=== PATIENT | male | born 1935 | race Asian ===

== ENCOUNTER 2018-10-13 19:50 | Inpatient (IN) | payer MEDICARE ==
[~2018-10-13] VITALS: Ht 167.6 cm; Wt 74.9 kg
[~2018-10-13 19:50] MED LIST: ALLO100T PO; ASPI-667 PO; CLOP75TA52 PO; FERR-39 PO; HYDR25TA PO; LOVA20TA2 PO; METF500T17 PO; METO25TA4 PO; POTA20TA14 PO; PRED2.5T PO; RIVA10TA PO; SENN1TAB68 PO; SPIR25TA PO; TORS20TA2 PO; UMEC1DIS IH; VIT1CAPS40 PO
[2018-10-13 20:56] VITALS: BP 143/79
--- NOTE | 2018-10-13 21:15 | ER.PDOC ---
General Chief Complaint: Requesting Medical Care Stated Complaint: BLOOD IN URINE Time seen by MD: 21:05 Source: patient History of Present Illness Initial Comments patient states that he had dysuria for two days and blood in urine starting today, no fever/flank pain or vomiting no complaints of abdominal pain. Timing/Duration: this afternoon Severity/Quality: moderate Location: suprapubic Associated Symptoms: Dysuria, Frequency, Hematuria Allergies: Coded Allergies: saffron (Verified Allergy, Mild, 06/04/18) shrimp (Verified Allergy, Mild, 06/04/18) Home Meds Reported Medications Rivaroxaban (XARELTO) 10 Mg Tablet, 2.5 MG PO BID, #10 TAB 10/13/18 Prednisone (PREDNISONE) 5 Mg Tab.ds.pk, 5 MG PO DAILY24 10/13/18 Cholestyramine (With Sugar) (CHOLESTYRAMINE POWDER) 378 Gm Powder, 378 GM PO PRN 10/13/18 Sucralfate (CARAFATE) 1 Gm/10 Ml Oral.susp, 10 MILLILITER PO BID, #120 MILLILITER 1 Refill 10/13/18 Hydroxyzine Pamoate (HYDROXYZINE PAMOATE) 25 Mg Capsule, 1 CAP PO QID, #60 CAP 2 Refills 10/13/18 Levothyroxine Sodium (LEVOTHYROXINE SODIUM) 75 Mcg Tablet, 1 TAB PO DAILY, #30 TAB 5 Refills 10/13/18 Lovastatin (LOVASTATIN) 20 Mg Tablet, 20 MG PO DAILY24, TABLET 10/13/18 Linagliptin (TRADJENTA) 5 Mg Tablet, 2.5 MG PO DAILY24, TABLET 10/13/18 Metoprolol Tartrate 25MG (LOPRESSER 25MG) 25 Mg Tablet, 25 MG PO q12 for HYPERTENSION, #60 TAB 10/13/18 Rivaroxaban (XARELTO) 10 Mg Tablet, 1 TAB PO DAILY, TAB 10/13/18 Clopidogrel Bisulfate (PLAVIX) 75 Mg Tablet, 75 MG PO DAILY24, TABLET 10/13/18 Spironolactone (SPIRONOLACTONE) 25 Mg Tablet, 25 MG PO DAILY24, TABLET 10/13/18 Pantoprazole Sodium (PANTOPRAZOLE SODIUM) 40 Mg Tablet.dr, 40 MG PO DAILY24 10/13/18 Allopurinol (ALLOPURINOL) 100 Mg Tablet, 100 MG PO BID, TABLET 10/13/18 Torsemide (TORSEMIDE) 20 Mg Tablet, 20 MG PO TID, TABLET 10/13/18 Potassium Chloride (POTASSIUM CHLORIDE) 20 Meq Tab.er.prt, 1 TAB PO BID, #180 TAB 3 Refills 10/13/18 Potassium Chloride (POTASSIUM CHLORIDE) 10 Meq Tab.er.prt, 10 MEQ PO BID 10/13/18 Umeclidinium Brm/Vilanterol Tr (Anoro Ellipta 62.5-25 Mcg INH) 1 Each Disk.w.dev , 1 EACH IH DAILY24 10/13/18 Albuterol Sulfate (PROAIR HFA) 8.5 Gm Hfa.aer.ad, 8.5 GM IH QID 10/13/18 Thiamine Hcl (VITAMIN B-1) 100 Mg Tablet, 100 MG PO DAILY24, TABLET 10/13/18 Cholecalciferol (Vitamin D3) (VITAMIN D3) 400 Unit Capsule, 400 UNIT PO DAILY24 , CAPSULE 10/13/18 Folic Acid (FOLIC ACID) 1 Mg Tablet, 1 TAB PO DAILY, #90 TAB 1 Refill 10/13/18 Ferrous Sulfate (FERROUS SULFATE) 325 Mg Tablet, 325 MG PO DAILY24, TABLET 10/13/18 Vit A/Vit C/Vit E/Zinc/Copper (PRESERVISION AREDS SOFTGEL) 1 Each Capsule, 1 EACH PO DAILY24, CAPSULE 10/13/18 Discontinued Reported Medications Sennosides/Docusate Sodium (STOOL SOFTENER TABLET) 1 Each Tablet, 1 EACH PO DAILY24, TABLET 06/04/18 Ferrous Sulfate (IRON) 325 Mg Tablet, 325 MG PO DAILY24, TABLET 06/04/18 Lovastatin (LOVASTATIN) 20 Mg Tablet, 1 TAB PO DAILY, #30 TAB 5 Refills 06/04/18 Clopidogrel Bisulfate (PLAVIX) 75 Mg Tablet, 1 TAB PO DAILY, #90 TAB 1 Refill 06/04/18 Prednisone (PREDNISONE) 2.5 Mg Tablet, 2 TAB PO DAILY, #30 TAB 3 Refills 06/04/18 Rivaroxaban (XARELTO) 10 Mg Tablet, 1 TAB PO DAILY, #10 TAB 06/04/18 Metformin Hcl (METFORMIN HCL) 500 Mg Tablet, 1 TAB PO BID, #60 TAB 3 Refills 06/04/18 Potassium Chloride (POTASSIUM CHLORIDE) 20 Meq Tab.er.prt, 1 TAB PO BID, #180 TAB 3 Refills 06/04/18 Allopurinol (ALLOPURINOL) 100 Mg Tablet, 1 TAB PO BID, #30 TAB 5 Refills 06/04/18 Torsemide (TORSEMIDE) 20 Mg Tablet, 3 TAB PO DAILY, #90 TAB 1 Refill 06/04/18 Vit C/E/Zn/Coppr/Lutein/Zeaxan (Preservision Areds 2 Softgel) 1 Each Capsule, 1 EACH PO DAILY24, CAPSULE 06/04/18 Umeclidinium Brm/Vilanterol Tr (Anoro Ellipta 62.5-25 Mcg INH) 1 Each Disk.w.dev , 1 EACH IH DAILY24 06/04/18 Metoprolol Tartrate 25MG (LOPRESSER 25MG) 25 Mg Tablet, 0.5 TAB PO BID, #180 TAB 1 Refill 06/04/18 Aspirin (ASPIRIN) 81 Mg Tab.chew, 1 TAB PO DAILY, #30 TAB 3 Refills 06/04/18 Spironolactone 25MG (ALDACTONE 25MG) 25 Mg Tablet, 1 TAB PO BID, #90 TAB 1 Refill 06/04/18 Hydroxyzine Hcl (HYDROXYZINE HCL) 25 Mg Tablet, 1 TAB PO QID, #30 TAB 06/04/18 Past Medical History Medical History: cardiac problems, diabetes, other Surgical History: no surgical history Social History Drug Use: none Review of Systems Constitutional: denies fever EENTM: denies double vision Respiratory: denies cough Cardiovascular: denies chest pain Gastrointestinal: denies abdominal pain Genitourinary: burning, frequency; denies flank pain; hematuria Musculoskeletal: denies back pain Skin: denies change in color Psychiatric/Neurological: denies anxiety, denies headache Endocrine: denies flushing Hematologic/Lymphatic: denies anemia Physical Exam General Appearance: No Apparent Distress Neck: nml inspection Cardiovascular/Respiratory: Regular Rate, Rhythm Abdomen: Non Tender Back: nml inspection Extremities: Normal Range of Motion Neurologic/Psychiatric: occ med physician II-XII NML as Tested, No Motor/Sensory Deficits, Alert, Normal Mood/Affect, Oriented x 3 Skin: Warm/Dry Lymphatic: No Adenopathy Results/Orders Results/Orders Laboratory Tests Test 10/13/18 21:30 10/13/18 21:52 10/13/18 22:21 10/13/18 23:15 White Blood Count 19.0 10^3/uL (4.5-11.0) Red Blood Count 5.28 10^6/uL (4.50-5.90) Hemoglobin 14.6 g/dL (13.9-16.3) Hematocrit 44.6 % (37.0-53.0) Mean Corpuscular Volume 84.5 fL (78-100) Mean Corpuscular Hemoglobin 27.7 pg (26-34) Mean Corpuscular Hemoglobin Concent 32.7 g/dL (33-37) Red Cell Distribution Width 16.6 % (11.5-14.5) Platelet Count 276 10^3/uL (150-400) Mean Platelet Volume 9.1 fL (7.8-11.0) Neutrophils (%) (Auto) 87.7 % (41.0-85.0) Lymphocytes (%) (Auto) 4.6 % (24.0-44.0) Monocytes (%) (Auto) 6.5 % (5.0-12.0) Neutrophils # (Auto) 16.7 10^3/uL (1.8-7.7) Lymphocytes # (Auto) 0.9 10^3/uL (1.0-4.8) Monocytes # (Auto) 1.2 10^3/uL (0.3-0.8) Absolute Immature Granulocyte (auto 0.15 10^3 u/L (0-2) Eosinophils % 0.3 % (0.0-5.0) Basophils % 0.1 % (0.0-0.2) Basophils # 0.0 10^3/uL (0.0-0.1) Eosinophil Count 0.1 10^3/uL (0.0-0.2) Prothrombin Time 17.4 SEC (9.8-11.9) Prothrombin Time INR (Non-Therap) 1.9 Activated Partial Thromboplast Time 42.0 SEC (24.67-30.72) Sodium Level 131 mmol/L (132-145) Potassium Level 4.3 mmol/L (3.6-5.2) Chloride Level 90.0 mmol/L (96-109) Carbon Dioxide Level 32.9 mmol/L (20.0-32) Anion Gap 12.4 Blood Urea Nitrogen 51 mg/dL (7-18) Creatinine 2.02 mg/dL (0.59-1.40) Estimated GFR () 38.5 (>/=60) BUN/Creatinine Ratio 25.0 Glucose Level 295 mg/dL (70-110) Calcium Level 9.6 mg/dL (8.4-10.5) Total Bilirubin 1.3 mg/dL (0.2-1.0) Aspartate Amino Transf (AST/SGOT) 19 U/L (0-35) Alanine Aminotransferase (ALT/SGPT) 31 U/L (12-78) Alkaline Phosphatase 209 U/L (50-136) Total Protein 8.5 g/dL (6.4-8.2) Albumin 4.0 g/dL (3.4-5.0) Globulin 4.5 Lipase 221 U/L (114-286) Percent Immature Gran (Cell Imm) 0.80 % (0.00-0.50) Differential Total Cells Counted 100 #CELLS Segmented Neutrophils 86 % (31-76) Lymphocytes 5 % (25-36) Monocytes 8 % (3-9) Basophils 1 % (0-2) Platelet Estimate ADEQUATE Platelet Morphology NORMAL Blood Morphology Comment NORMAL MORPHOLOGY Urine Collection Type UNKNOWN Urine Color RED (YELLOW) Urine Appearance CLOUDY (CLEAR) Urine Bilirubin NEGATIVE MG/DL (NEGATIVE) Urine Ketones NEGATIVE (NEGATIVE) Urine Specific [place] 1.010 (1.005-1.035) Urine pH 7 (5.0-6.0) Urine Protein 100 mg/dL (NEGATIVE) Urine Urobilinogen NORMAL (NEGATIVE) Urine Nitrate NEGATIVE (NEGATAIVE) Urine Leukocyte Esterase 500/uL 2+ (NEGATIVE) Urine Blood 250 4+ (NEGATIVE) Urine RBC TNTC RBC/HPF (NONE SEEN) Urine WBC TNTC WBC/HPF (0-2) Urine Squamous Epithelial Cells RARE #/HPF (FEW) Urine Bacteria MANY (NONE SEEN) Urine Glucose NORMAL (NEGATIVE) Blood Gas Sample Site LEFT BRACHIAL ARTRY Blood Gas pH 7.608 (7.350-7.450) Blood Gas PCO2 28.5 mmHg (35.0-45.0) Blood Gas PO2 62.1 mmHg (75.0-100.0) Blood Gas HCO3 27.9 mmol/L (22.0-26.0) Blood Gas Base Excess 7.3 mmol/L (-2.0-2.0) Roland Test N/A Arterial Blood Oxygen Saturation 93.6 % (95-) Deoxyhemoglobin 6.2 % (0.2-0.6) Carboxyhemoglobin 2.8 % (0.5-1.5) Methemoglobin 0.2 % (0.2-0.6) Total Hemoglobin 15.5 % (13.5-17.5) Total Oxygen Concentration 19.8 % (13.5-17.5) Lactic Acid (Blood Gas) 1.4 MMOL/L (0.5-1.0) Oxygen Delivery Method (LAB) RA FiO2 21 % (20-101) Bicarbonate 28.7 mmol/L (23-27) Progress Progress discussed with dr proctor for admission Departure Time of Disposition: 23:40 Disposition: 09 ADMITTED INPATIENT Impression: Primary Impression: Urinary tract bacterial infections Additional Impressions: Hematuria Dehydration Hyperglycemia Condition: Improved Referrals: CEDRIC YU MD (PCP) PRIMARY CARE PROVIDER Duration or Time Spent with Pa: 25 Problem Qualifiers JOSE NORTON MD Oct 13, 2018 21:15
[2018-10-13 21:46] LABS: BASOPHIL % 0.1 % (0.0-0.2); EOSINOPHIL # 0.1 10^3/uL (0.0-0.2); EOSINOPHIL % 0.3 % (0.0-5.0); HEMOGLOBIN 14.6 g/dL (13.9-16.3); LYMPHOCYTES # 0.9 10^3/uL (1.0-4.8); LYMPHOCYTES % 4.6 % (24.0-44.0); MEAN CELL HGB 27.7 pg (26-34); MEAN CELL HGB CONCENTRATION 32.7 g/dL (33-37); MEAN CORP VOLUME 84.5 fL (78-100); MEAN PLATELET VOLUME 9.1 fL (7.8-11.0); MONOCYTES # 1.2 10^3/uL (0.3-0.8); MONOCYTES % 6.5 % (5.0-12.0); NEUTROPHIL # 16.7 10^3/uL (1.8-7.7); NEUTROPHILS % 87.7 % (41.0-85.0); RED CELL DISTRIBUTION WIDTH 16.6 % (11.5-14.5)
[2018-10-13] MEDS ORDERED: FOLI1TAB21 PO (21:52)
[2018-10-13] MEDS ORDERED: SPIR25TA5 PO (21:52)
[2018-10-13] MEDS ORDERED: LEVO75TA6 PO (21:52)
[2018-10-13] MEDS ORDERED: CHOL378P PO (21:52)
[2018-10-13] MEDS ORDERED: CLOP75TA52 PO (21:52)
[2018-10-13] MEDS ORDERED: ALBU8.5H7 IH (21:52)
[2018-10-13] MEDS ORDERED: HYDR25CA93 PO (21:52)
[2018-10-13] MEDS ORDERED: LINA5TAB PO (21:52)
[2018-10-13] MEDS ORDERED: PANT40TA5 PO (21:52)
[2018-10-13] MEDS ORDERED: SUCR1ORA5 PO (21:52)
[2018-10-13] MEDS ORDERED: POTA20TA14 PO (21:52)
[2018-10-13] MEDS ORDERED: POTA10TA31 PO (21:52)
[2018-10-13] MEDS ORDERED: [UNRECOGNIZED DRUG - CODE] PO (21:52)
[2018-10-13] MEDS ORDERED: UMEC1DIS IH (21:52)
[2018-10-13] MEDS ORDERED: LOVA20TA2 PO (21:52)
[2018-10-13] MEDS ORDERED: TORS20TA2 PO (21:52)
[2018-10-13] MEDS ORDERED: METO25TA4 PO (21:52)
[2018-10-13] MEDS ORDERED: RIVA10TA PO ×2 (21:52→21:53)
[2018-10-13] MEDS ORDERED: VIT1CAPS12 PO (21:52)
[2018-10-13] MEDS ORDERED: PRED5TAB17 PO (21:52)
[2018-10-13] MEDS ORDERED: FERR325T15 PO (21:52)
[2018-10-13] MEDS ORDERED: CHOL400C5 PO (21:52)
[2018-10-13] MEDS ORDERED: ALLO100T PO (21:52)
[2018-10-13 22:02] LABS: CALCIUM 9.6 mg/dL (8.4-10.5); CARBON DIOXIDE 32.9 mmol/L (20.0-32)
[2018-10-13 22:26] LABS: BILIRUBIN,URINE NEGATIVE (NEGATIVE); UROBILINOGEN,URINE NORMAL (NEGATIVE)
[2018-10-13] MEDS ORDERED: HUMULIN R SQ ONE (22:30)
[2018-10-13] MEDS ORDERED: NS 1000ML 1,000 ML IV ONE (22:30)
[2018-10-13 22:39] LABS: APPEARANCE,URINE CLOUDY (CLEAR); UA COLOR RED (YELLOW)
--- NOTE | 2018-10-13 22:52 | DIREP ---
PROCEDURE:CT ABDOMEN/PELVIS W/O CONTRAST COMPARISON:None. INDICATIONS:blood in urine, DIABETIC, ELEVATED CREATININE TECHNIQUE:Axial images were created through the abdomen and pelvis without intravenous contrast material. No oral contrast was administered. Sagittal and coronal reconstructions were performed from source images. FINDINGS: LUNG BASES:Mild cardiomegaly. Small hiatal hernia. LIVER:Nodular liver contour BILIARY:Gallstones without surrounding inflammation PANCREAS:Normal. No lesion, fluid collection, ductal dilatation, or atrophy. SPLEEN:Normal. No enlargement or focal lesion. ADRENALS:Normal. No mass or enlargement. URINARY TRACT:Normal. No focal lesions or hydronephrosis. AORTA/VASCULAR: Aortoiliac atherosclerotic vascular calcium. RETROPERITONEUM:Normal. No mass or adenopathy. BOWEL/MESENTERY:Prominent amount of stool ABDOMINAL WALL:Normal. No mass or hernia. PELVIC ORGANS:Normal. No visible mass. Pelvic organs appropriate for patient age. BONES:Normal for age. No bony lesion or acute fracture. OTHER:Negative. CONCLUSION: 1. No renal stone or hydronephrosis. No solid renal lesion is identified on this noncontrast study. 2. Prominent amount of stool suggests constipation 3. Nodular liver contour suggests cirrhosis 4. Small hiatal hernia 5. Cholelithiasis without imaging evidence for cholecystitis. Dictated by: Hector Rodriguez Jr. on 10/13/2018 at 10:45 PM
[2018-10-13 23:19] LABS: BASOPHIL 1 % (0-2); LYMPHOCYTE 5 % (25-36); MONOCYTE 8 % (3-9); SEGMENTED NEUTROPHILS 86 % (31-76)
[2018-10-13] MEDS ORDERED: ROCEPHIN 1,000 MG in NS 100ML 100 ML IV SCH (23:30)
[2018-10-13 23:38] LABS: ABG PCO2 28.5 mmHg (35.0-45.0); ABG PH 7.608 (7.350-7.450); BE(B) 7.3 mmol/L (-2.0-2.0); HCO3act 27.9 mmol/L (22.0-26.0); pO2 62.1 mmHg (75.0-100.0)
--- NOTE | 2018-10-13 23:42 | NUR ---
CARMELITA NORTON ON PHONE WITH DR. MAE
[2018-10-13] MEDS ORDERED: NS 100ML 100 ML IV ONE (23:50)
[2018-10-13] MEDS ORDERED: ROCEPHIN ONE (23:51)
[2018-10-14 00:32] VITALS: BP 125/72
[2018-10-14 00:40] VITALS: BP 151/81
[2018-10-14 05:01] VITALS: BP 112/66
--- NOTE | 2018-10-14 06:35 | NUR ---
REPORT REPORT RECEIVED FROM DELFINO Hanley RN ASSUMED CARE OF PT
--- NOTE | 2018-10-14 07:17 | PCM.HP ---
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 Has dx of Cirrhosis (and is hypocoagulable), and is on Xarelto for Afib and Plavix for new stent in left leg. No ASA. Also with Acute on CKD, present on admission, secondary to ATN. + for UTI. Will also consult Dr. Ruffin. H&P # [id number] HISTORY OF PRESENT ILLNESS: ALLERGIES: CURRENT MEDICATIONS: PAST MEDICAL HISTORY: SOCIAL HISTORY: FAMILY HISTORY: REVIEW OF SYSTEMS: PHYSICAL EXAMINATION: GENERAL: VITAL SIGNS: HEENT: NECK: LUNGS: HEART: ABDOMEN: EXTREMITIES: NEUROLOGIC: LABORATORY DATA: IMPRESSION: CARE PLAN: BARTOLO MAE MD Oct 14, 2018 07:17
[2018-10-14] MEDS ORDERED: LEVAQUIN 150 ML IV ONE ×2 (07:30→10:15)
[2018-10-14 07:37] LABS: BASOPHIL % 0.1 % (0.0-0.2); EOSINOPHIL # 0.1 10^3/uL (0.0-0.2); EOSINOPHIL % 0.6 % (0.0-5.0); HEMOGLOBIN 14.1 g/dL (13.9-16.3); LYMPHOCYTES % 5.5 % (24.0-44.0); MEAN CELL HGB 27.7 pg (26-34); MEAN CELL HGB CONCENTRATION 33.1 g/dL (33-37); MEAN CORP VOLUME 83.7 fL (78-100); MEAN PLATELET VOLUME 9.4 fL (7.8-11.0); MONOCYTES # 1.4 10^3/uL (0.3-0.8); MONOCYTES % 7.6 % (5.0-12.0); NEUTROPHIL # 15.9 10^3/uL (1.8-7.7); NEUTROPHILS % 85.4 % (41.0-85.0); RED CELL DISTRIBUTION WIDTH 16.7 % (11.5-14.5); WHITE BLOOD CELL 18.6 10^3/uL (4.5-11.0)
[2018-10-14 07:45] VITALS: BP 121/62
[2018-10-14 07:56] LABS: CALCIUM 8.9 mg/dL (8.4-10.5); CARBON DIOXIDE 28.1 mmol/L (20.0-32)
[2018-10-14] MEDS: PROTONIX PO SCH ×2 (10:18→10:30)
[2018-10-14] MEDS ORDERED: DEXTROSE 50%-WATER SYRINGE IV PRN (10:30)
[2018-10-14] MEDS ORDERED: PLAVIX PO SCH (10:30)
--- NOTE | 2018-10-14 10:30 | NUR ---
DISCHARGE PLAN CASE MANAGEMENT VISITED WITH PATIENT CONCERNING DISCHARGE PLAN AND NEEDS. LIVES AT HOME ALONE. SOMEWHAT INDEPENDENT OF ADLS. STEP SON LIVES NEXT DOOR. HAS DME INCLUDING SHOWER CHAIR AND WALKER. HAS HOME OXYGEN THROUGH [employer]. HAS [facility] IN PLACE. DISCHARGE GOAL IS TO DISCHARGE HOME AND [facility] TO FOLLOW. DENIES FURTHER NEEDS AT THIS TIME.
--- NOTE | 2018-10-14 10:52 | HPH ---
ADMIT DATE: CHIEF COMPLAINT: Blood in the urine. HISTORY OF PRESENT ILLNESS: This is an 83-year-old male with multiple medical problems including congestive heart failure, atrial fibrillation, and cirrhosis who presented to [facility] Emergency Department on 10/13/2018 for complaints of blood in urine. He states he had been in his usual state of health until earlier on the day when he started noticing his urine did not look right. He states his urine was maroon and occasionally looked tea-colored and that overall progressing throughout the evening, his urine became more and more red. When he urinated at approximately 7:00 p.m., he noticed that his urine was completely red and this concerned him enough to come in. He did not have any fever or flank pain or any gastrointestinal side effects or symptoms. He has not had any pain with urination. He states that this has not happened before and he has been fine over the last several weeks. The only symptom he endorses with it is that he occasionally will have some pressure in the pelvis whenever he urinates and that he feels like he is using the restroom more often over the last 2 weeks. When he does urinate, he states he completely empties his bladder and does not have to urinate again for several hours, but overall it is more frequent than normal. Of note, the patient had a stent placed in his left leg approximately [address] Caro. Apparently, he has been on Plavix since that time. He is also on Xarelto for atrial fibrillation and congestive heart failure and he also has recently been diagnosed with cirrhosis of unknown etiology. The patient denies any other bleeding from any other parts of the body. He denies any significant bruising. PAST MEDICAL HISTORY: 1. Chronic systolic congestive heart failure. 2. Diabetes mellitus type 2. 3. Peripheral arterial disease. 4. Hypertension. 5. Diabetes mellitus. 6. Hyperlipidemia. 7. Cirrhosis of the liver. 8. History of peptic ulcer disease. 9. Hypothyroidism. 10. GERD. 11. Gout. 12. Chronic volume overload. 13. Lower extremity edema. 14. Chronic obstructive pulmonary disease. MEDICATIONS: See admit medication reconciliation form, but includes: 1. Xarelto 2.5 mg b.i.d. 2. Plavix 75 mg daily. 3. Multiple other medications. ALLERGIES: SAFFRON and SHRIMP. PAST SURGICAL HISTORY: Stents placed in lower extremity artery. SOCIAL HISTORY: Alcohol and tobacco -- denies. The patient lives alone in [place]. He states family lives in the house next door. FAMILY HISTORY: Multiple family members with high blood pressure. REVIEW OF SYSTEMS: GENERAL: Overall mild weakness, fatigue and malaise over the last several weeks. CARDIAC: Denies chest pain, orthopnea, PND or palpitations. RESPIRATORY: Denies shortness of breath, cough or congestion. GASTROINTESTINAL: No nausea, vomiting, diarrhea or constipation. No history of hepatitis. GENITOURINARY: Denies incontinence or nocturia, but positive for hematuria and dysuria as above. HEMATOLOGIC: Easy bleeding from the bladder and a history of peptic ulcer disease. ENDOCRINE: No recent weight loss or weight gain. No temperature intolerance. NEUROLOGIC: Denies headache, paresthesias or dizziness. MUSCULOSKELETAL: No new pain or weakness in any muscle group. PSYCHIATRIC: Denies anxiety or depression. OBJECTIVE: VITAL SIGNS: Temperature is 97.7, pulse 77, respirations 20, blood pressure 143/79, pulse oximetry 100% on room air. GENERAL: This is a well-appearing male in no acute distress. He is hard of hearing. HEENT: Atraumatic, normocephalic. Sclerae are clear and anicteric. Oral mucosa is moist. NECK: Soft, supple normal range of motion. No tenderness, bruits, goiter, mass or adenopathy. There is no JVD. LUNGS: Clear to auscultation bilaterally. HEART: Regular rate and rhythm without murmurs, S3 or S4. ABDOMEN: Soft and mildly distended. No masses felt. Nontender. Positive bowel sounds. EXTREMITIES: Cool, but appeared to be well perfused. Atrophic changes of the skin with darkening and thickening of the skin on the lower extremities. NEUROLOGIC: Cranial nerves 2-12 are grossly intact and symmetric. SKIN: Intact other than as mentioned above. LABORATORY DATA: WBC 19, hemoglobin 14.6, hematocrit 44.6, platelets 276, neutrophil percentage 87.7. PT 17.4, INR 1.9, PTT 42. Sodium 137, potassium 4.3, chloride 90, CO2 of 32.9, BUN 51, creatinine 2.02, glucose 295, calcium 9.6. Total bilirubin 1.3, AST 19, ALT 31, alkaline phosphatase 209. Lipase 221, albumin 4.0. Urinalysis -- too numerous to count red blood cells and many bacteria. CT abdomen and pelvis -- "no renal stone or hydronephrosis. No solid renal lesion. Prominent amount of stool. Nodular liver suggesting cirrhosis." IMPRESSION: 1. Gross hematuria. 2. Urinary tract infection. 3. Leukocytosis. 4. Acute renal failure. 5. Hyponatremia. 6. Diabetes mellitus type 2 with hyperglycemia. 7. Cirrhosis with hyperbilirubinemia. 8. Chronic systolic congestive heart failure. 9. Peripheral arterial disease. 10. Hypocoagulable state. 11. Chronic obstructive pulmonary disease. PLAN: The patient is admitted to [facility] for further evaluation and management. His urine seems to have cleared somewhat this morning. For now, we will continue aggressive IV fluid hydration to try and improve his renal status and keep his urine clear. We will have to be cautious to avoid fluid overload as he is prone to this and he does have the diagnosis of chronic heart failure. Given his cirrhosis, he already has a hypocoagulable condition and is now on Xarelto, albeit a low dose, and Plavix. The Plavix may be more important for him since he has a fresh stent in his leg. We may need to hold the Xarelto while he is in the hospital and while he is having active bleeding. I have discussed all of this with his daughter. Consult to Dr. Ruffin for evaluation of gross hematuria. We will keep on IV ceftriaxone and Levaquin for urinary tract infection. Follow renal function closely with IV fluid management. Acute renal failure was present on admission and is likely acute on chronic kidney disease with part of this being related to acute tubular necrosis. Follow sodium closely with hydration. Keep on sliding scale insulin for hyperglycemia. Needs DVT and stress ulcer prophylaxis. Avoid aspirin or NSAIDs. Vinay Parry MD DR: PRINCESS/eula JOB# [id number]
[2018-10-14 11:40] VITALS: BP 113/65
[2018-10-14] MEDS: PREDNISONE PO SCH (13:22)
[2018-10-14] MEDS: FERROUS SULFATE PO SCH (13:22)
[2018-10-14] MEDS: ALDACTONE PO SCH (13:23)
[2018-10-14] MEDS: THIAMINE HCL PO SCH (13:23)
[2018-10-14] MEDS: TRADJENTA PO SCH (13:23)
[2018-10-14] MEDS: ATARAX PO SCH ×3 (13:23→21:37)
[2018-10-14] MEDS ORDERED: NS 1000ML 1,000 ML ONE (13:30)
[2018-10-14] MEDS: HUMULIN R SQ SCH ×3 (13:31→21:21)
--- NOTE | 2018-10-14 13:31 | NUR ---
FLUIDS ORDER RECEIVED FROM DR MAE FOR PATIENT TO RECEIVE NS AT 60MLS/HR.
[2018-10-14] MEDS ORDERED: NS 1000ML 1,000 ML IV SCH (14:00)
[2018-10-14] MEDS: DEMADEX PO SCH ×2 (17:15→21:37)
[2018-10-14 17:39] VITALS: BP 119/67
[2018-10-14] MEDS ORDERED: ROCEPHIN 1,000 MG in NS 100ML 100 ML IV SCH (20:00)
[2018-10-14] MEDS ORDERED: LIPITOR PO SCH (21:00)
[2018-10-14] MEDS: LOPRESSER PO SCH (21:37)
[2018-10-14] MEDS: KLOR-CON 10 PO SCH (21:37)
[2018-10-14] MEDS: CARAFATE PO SCH (21:37)
[2018-10-14] MEDS: ZYLOPRIM PO SCH (21:37)
[2018-10-15 00:39] VITALS: BP 112/58
[2018-10-15 04:58] VITALS: BP 117/65
[2018-10-15 05:12] LABS: HEMOGLOBIN 14.2 g/dL (13.9-16.3); MEAN CELL HGB 27.9 pg (26-34); MEAN CELL HGB CONCENTRATION 33.1 g/dL (33-37); MEAN CORP VOLUME 84.3 fL (78-100); MEAN PLATELET VOLUME 9.2 fL (7.8-11.0); RED CELL DISTRIBUTION WIDTH 16.8 % (11.5-14.5); WHITE BLOOD CELL 15.7 10^3/uL (4.5-11.0)
[2018-10-15 05:40] LABS: CALCIUM 8.9 mg/dL (8.4-10.5); CARBON DIOXIDE 29.4 mmol/L (20.0-32)
[2018-10-15] MEDS ORDERED: SYNTHROID PO SCH (06:30)
--- NOTE | 2018-10-15 07:14 | PRM.PN ---
Subjective Subjective Date: Oct 15, 2018 Time: 07:14 Subjective No overnight events. Continues to feel a little better. Urine remains clear now. 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 No other focus of bleeding noted. Energy level improved. Wants to go home. VTE VTE Risk Total Score: 2 VTE Risk Score VTE Risk: Score 0-1 = Low Risk (Aggressive mobilization; early ambulation; no VTE prophylaxis required) Score 2: Moderate Risk (Intermittent/Pneumatic Compression Device OR Lovenox/Heparin/Coumadin) Score 3-4: High Risk (Intermittent/Pneumatic Compression Device AND Lovenox/Heparin/Coumadin) Score > or =5: Highest Risk (Intermittent/Pneumatic Compression Device AND Lovenox/Heparin/Coumadin) Review of Systems Constitutional: No: Fever, Chills, Sweats, Weakness, Malaise, Other Respiratory: No: Cough, Dry, Shortness of breath, SOB with excertion, Wheezing , Hemoptysis, Pleuritic Pain, Sputum, Wheezing, Other Cardiovascular: No: Chest Pain, Palpitations, Orthopnea, Paroxysmal Noc. Dyspnea, Edema, Lt Headedness, Other Gastrointestinal: No: Nausea, Vomiting, Abdominal Pain, Diarrhea, Constipation , Melena, Hematochezia, Other Genitourinary: No Dysuria, No Frequency, No Incontinence, No Hematuria, No Retention, No Other Neurological: No: Weakness, Numbness, Incoordination, Change in speech, Confusion, Seizures, Other Allergies: Coded Allergies: saffron (Verified Allergy, Mild, 06/04/18) shrimp (Verified Allergy, Mild, 06/04/18) Scheduled Albuterol Sulfate (Proair Hfa), 8.5 GM IH QID, (Reported) Allopurinol (Allopurinol), 100 MG PO BID, (Reported) Cholestyramine (With Sugar) (Cholestyramine Powder), 378 GM PO PRN, (Reported) Ciprofloxacin Hcl (Cipro), 500 MG PO BID Clopidogrel Bisulfate (Plavix), 75 MG PO DAILY24, (Reported) Levothyroxine Sodium (Levothyroxine Sodium), 1 TAB PO DAILY, (Reported) Lovastatin (Lovastatin), 20 MG PO DAILY24, (Reported) Metoprolol Tartrate 25MG (Lopresser 25MG), 25 MG PO q12, (Reported) Pantoprazole Sodium (Pantoprazole Sodium), 40 MG PO DAILY24, (Reported) Potassium Chloride (Potassium Chloride), 10 MEQ PO BID, (Reported) Potassium Chloride (Potassium Chloride), 1 TAB PO BID, (Reported) Prednisone (Prednisone), 5 MG PO DAILY24, (Reported) Rivaroxaban (Xarelto), 2.5 MG PO BID, (Reported) Spironolactone (Spironolactone), 25 MG PO DAILY24, (Reported) Sucralfate (Carafate), 10 MILLILITER PO BID, (Reported) Torsemide (Torsemide), 20 MG PO TID, (Reported) Umeclidinium Brm/Vilanterol Tr (Anoro Ellipta 62.5-25 Mcg INH), 1 EACH IH DAILY24, (Reported) Discontinued Medications Allopurinol (Allopurinol), 1 TAB PO BID, (Reported) Discontinued Reason: Discontinue Aspirin (Aspirin), 1 TAB PO DAILY, (Reported) Discontinued Reason: Discontinue Cholecalciferol (Vitamin D3) (Vitamin D3), 400 UNIT PO DAILY24, (Reported) Discontinued Reason: Cancel Clopidogrel Bisulfate (Plavix), 1 TAB PO DAILY, (Reported) Discontinued Reason: Discontinue Ferrous Sulfate (Iron), 325 MG PO DAILY24, (Reported) Discontinued Reason: Discontinue Ferrous Sulfate (Ferrous Sulfate), 325 MG PO DAILY24, (Reported) Discontinued Reason: Cancel Folic Acid (Folic Acid), 1 TAB PO DAILY, (Reported) Discontinued Reason: Cancel Hydroxyzine Hcl (Hydroxyzine Hcl), 1 TAB PO QID, (Reported) Discontinued Reason: Discontinue Hydroxyzine Pamoate (Hydroxyzine Pamoate), 1 CAP PO QID, (Reported) Discontinued Reason: Cancel Linagliptin (Tradjenta), 2.5 MG PO DAILY24, (Reported) Discontinued Reason: Cancel Lovastatin (Lovastatin), 1 TAB PO DAILY, (Reported) Discontinued Reason: Discontinue Metformin Hcl (Metformin Hcl), 1 TAB PO BID, (Reported) Discontinued Reason: Discontinue Metoprolol Tartrate 25MG (Lopresser 25MG), 0.5 TAB PO BID, (Reported) Discontinued Reason: Cancel Potassium Chloride (Potassium Chloride), 1 TAB PO BID, (Reported) Discontinued Reason: Discontinue Prednisone (Prednisone), 2 TAB PO DAILY, (Reported) Discontinued Reason: Discontinue Rivaroxaban (Xarelto), 1 TAB PO DAILY, (Reported) Discontinued Reason: Discontinue Rivaroxaban (Xarelto), 1 TAB PO DAILY, (Reported) Discontinued Reason: Cancel Sennosides/Docusate Sodium (Stool Softener Tablet), 1 EACH PO DAILY24, (Reported ) Discontinued Reason: Discontinue Spironolactone 25MG (Aldactone 25MG), 1 TAB PO BID, (Reported) Discontinued Reason: Discontinue Thiamine Hcl (Vitamin B-1), 100 MG PO DAILY24, (Reported) Discontinued Reason: Cancel Torsemide (Torsemide), 3 TAB PO DAILY, (Reported) Discontinued Reason: Discontinue Umeclidinium Brm/Vilanterol Tr (Anoro Ellipta 62.5-25 Mcg INH), 1 EACH IH DAILY24, (Reported) Discontinued Reason: No Longer Taking Vit A/Vit C/Vit E/Zinc/Copper (Preservision Areds Softgel), 1 EACH PO DAILY24, ( Reported) Discontinued Reason: Cancel Vit C/E/Zn/Coppr/Lutein/Zeaxan (Preservision Areds 2 Softgel), 1 EACH PO DAILY24 , (Reported) Discontinued Reason: Discontinue Objective Vitals and I/O Vital Sign - Last 24 Hours 10/14/18 10/14/18 10/14/18 10/14/18 07:45 07:45 11:40 13:23 Temp 97.6 98.4 97.6 98.4 Pulse 83 98 Resp 18 18 B/P (MAP) 121/62 (81) 113/65 (81) 113/65 Pulse Ox 92 94 O2 Delivery Room Air Room Air Room Air 10/14/18 10/14/18 10/14/18 10/14/18 17:15 17:39 20:56 21:37 Temp 97.8 97.8 Pulse 73 73 Resp 18 B/P (MAP) 113/65 119/67 (84) 119/67 Pulse Ox 94 O2 Delivery Room Air Room Air 10/14/18 10/15/18 10/15/18 21:37 00:39 04:58 Temp 98.3 97.6 98.3 97.6 Pulse 86 66 Resp 17 17 B/P (MAP) 119/67 112/58 (76) 117/65 (82) Pulse Ox 92 93 O2 Delivery Room Air Room Air Intake and Output 10/14/18 10/14/18 10/15/18 15:00 23:00 07:00 Intake Total 2240 ml 500 ml Output Total 900 ml 650 ml Balance 1340 ml -150 ml All Results(Lab/Rad) Laboratory Tests Test 10/14/18 07:29 10/15/18 04:50 White Blood Count 18.6 10^3/uL 15.7 10^3/uL Red Blood Count 5.09 10^6/uL 5.09 10^6/uL Hemoglobin 14.1 g/dL 14.2 g/dL Hematocrit 42.6 % 42.9 % Mean Corpuscular Volume 83.7 fL 84.3 fL Mean Corpuscular Hemoglobin 27.7 pg 27.9 pg Mean Corpuscular Hemoglobin Concent 33.1 g/dL 33.1 g/dL Red Cell Distribution Width 16.7 % 16.8 % Platelet Count 270 10^3/uL 252 10^3/uL Mean Platelet Volume 9.4 fL 9.2 fL Neutrophils (%) (Auto) 85.4 % Lymphocytes (%) (Auto) 5.5 % Monocytes (%) (Auto) 7.6 % Neutrophils # (Auto) 15.9 10^3/uL Lymphocytes # (Auto) 1.0 10^3/uL Monocytes # (Auto) 1.4 10^3/uL Absolute Immature Granulocyte (auto 0.14 10^3 u/L Eosinophils % 0.6 % Basophils % 0.1 % Basophils # 0.0 10^3/uL Eosinophil Count 0.1 10^3/uL Sodium Level 135 mmol/L 133 mmol/L Potassium Level 3.7 mmol/L 4.4 mmol/L Chloride Level 92.0 mmol/L 93.0 mmol/L Carbon Dioxide Level 28.1 mmol/L 29.4 mmol/L Anion Gap 18.6 15.0 Blood Urea Nitrogen 54 mg/dL 48 mg/dL Creatinine 1.72 mg/dL 1.88 mg/dL Estimated GFR () 46.3 41.8 BUN/Creatinine Ratio 31.0 25.0 Glucose Level 138 mg/dL 144 mg/dL Calcium Level 8.9 mg/dL 8.9 mg/dL Total Bilirubin 1.1 mg/dL 1.0 mg/dL Aspartate Amino Transf (AST/SGOT) 20 U/L 25 U/L Alanine Aminotransferase (ALT/SGPT) 27 U/L 28 U/L Alkaline Phosphatase 203 U/L 199 U/L Total Protein 7.8 g/dL 7.9 g/dL Albumin 3.7 g/dL 3.6 g/dL Globulin 4.1 4.3 Percent Immature Gran (Cell Imm) 0.80 % Hemoglobin A1c 8.0 % Ammonia 12 umol/L Current Medications Medications (Trade) Dose Ordered Sig/Debbie Route PRN Reason Start Time Stop Time Status Last Admin Dose Admin Insulin Human Regular (Humulin R) 20 unit OT ONCE SQ 10/13/18 22:30 10/14/18 01:35 DC 10/14/18 00:02 Sodium Chloride 1,000 ml @ 100 mls/hr STAT ONCE IV 10/13/18 22:30 10/14/18 08:29 DC 10/14/18 00:02 Ceftriaxone Sodium 1000 mg/ Sodium Chloride 100 ml @ 100 mls/hr STAT IV 10/13/18 23:30 10/14/18 08:30 DC 10/14/18 00:02 Sodium Chloride 100 ml @ ud STK-MED ONCE IV 10/13/18 23:50 10/13/18 23:52 DC Ceftriaxone Sodium (Rocephin) 1,000 mg STK-MED ONCE .ROUTE 10/13/18 23:51 10/13/18 23:53 DC Pantoprazole Sodium (Protonix) 40 mg DAILY PO 10/14/18 09:00 11/13/18 08:59 10/14/18 10:18 Levofloxacin/ Dextrose 150 ml @ 100 mls/hr Q24HRS ONCE IV 10/14/18 07:30 10/14/18 08:59 DC 10/14/18 10:18 Levofloxacin/ Dextrose 150 ml @ ud STK-MED ONCE IV 10/14/18 10:15 10/14/18 10:17 DC Ceftriaxone Sodium 1000 mg/ Sodium Chloride 100 ml @ 100 mls/hr Q24HRS IV 10/14/18 20:00 11/13/18 19:59 10/14/18 21:37 Insulin Human Regular (Humulin R) Give 30 minutes before meal ACHS SQ 10/14/18 11:30 11/13/18 11:29 10/14/18 21:21 Dextrose (Dextrose 50%-Water Syringe) 25 ml STAT PRN IV HYPOGLYCEMIA 10/14/18 10:30 11/13/18 10:29 Allopurinol (Zyloprim) 100 mg BID PO 10/14/18 21:00 11/13/18 20:59 10/14/18 21:37 Clopidogrel Bisulfate (Plavix) 75 mg DAILY24 PO 10/14/18 10:30 11/13/18 10:29 10/14/18 13:22 Ferrous Sulfate (Ferrous Sulfate) 325 mg DAILY PO 10/14/18 10:30 11/13/18 10:29 10/14/18 13:22 Folic Acid (Folic Acid) 1 mg DAILY PO 10/15/18 09:00 11/14/18 08:59 Levothyroxine Sodium (Synthroid) 75 mcg ACB PO 10/15/18 06:30 11/14/18 06:29 10/15/18 06:04 Atorvastatin Calcium (Lipitor) 10 mg HS PO 10/14/18 21:00 11/13/18 20:59 10/14/18 21:37 Metoprolol Tartrate (Lopresser) 25 mg BID PO 10/14/18 21:00 11/13/18 20:59 10/14/18 21:37 Pantoprazole Sodium (Protonix) 40 mg DAILY PO 10/14/18 10:30 11/13/18 10:29 Spironolactone (Aldactone) 25 mg DAILY PO 10/14/18 10:30 11/13/18 10:29 10/14/18 13:23 Sucralfate (Carafate) 1 gm BID PO 10/14/18 21:00 11/13/18 20:59 10/14/18 21:37 Thiamine HCl (Thiamine HCl) 100 mg DAILY PO 10/14/18 10:30 11/13/18 10:29 10/14/18 13:23 Torsemide (Demadex) 20 mg TID PO 10/14/18 15:00 11/13/18 14:59 10/14/18 21:37 Cholestyramine Resin (Prevalite Packet) 4 gm DAILY PRN PO CONSTIPATION 10/15/18 09:00 11/14/18 08:59 Hydroxyzine HCl (Atarax) 25 mg QID PO 10/14/18 13:00 11/13/18 12:59 10/14/18 21:37 Potassium Chloride (Klor-Con 10) 10 meq BID PO 10/14/18 21:00 11/13/18 20:59 10/14/18 21:37 Prednisone (Prednisone) 5 mg DAILY PO 10/14/18 10:30 11/13/18 10:29 10/14/18 13:22 Sodium Chloride 1,000 ml @ ud STK-MED ONCE .ROUTE 10/14/18 13:30 10/14/18 13:32 DC Sodium Chloride 1,000 ml @ 60 mls/hr [id number] IV 10/14/18 14:00 11/13/18 13:59 10/14/18 13:34 Course Sepsis Screening Results: Posi: POSITIVE Sepsis Qualifier/Stage: NO DEFINITE RISK Duration or Total Time Spent w: 25 Vitals & review Data Vital Sign - Last 24 Hours 10/14/18 10/14/18 10/14/18 10/14/18 07:45 07:45 11:40 13:23 Temp 97.6 98.4 97.6 98.4 Pulse 83 98 Resp 18 18 B/P (MAP) 121/62 (81) 113/65 (81) 113/65 Pulse Ox 92 94 O2 Delivery Room Air Room Air Room Air 10/14/18 10/14/18 10/14/18 10/14/18 17:15 17:39 20:56 21:37 Temp 97.8 97.8 Pulse 73 73 Resp 18 B/P (MAP) 113/65 119/67 (84) 119/67 Pulse Ox 94 O2 Delivery Room Air Room Air 10/14/18 10/15/18 10/15/18 21:37 00:39 04:58 Temp 98.3 97.6 98.3 97.6 Pulse 86 66 Resp 17 17 B/P (MAP) 119/67 112/58 (76) 117/65 (82) Pulse Ox 92 93 O2 Delivery Room Air Room Air Intake and Output 10/14/18 10/14/18 10/15/18 15:00 23:00 07:00 Intake Total 2240 ml 500 ml Output Total 900 ml 650 ml Balance 1340 ml -150 ml Laboratory Tests Test 10/13/18 21:30 10/13/18 21:52 10/13/18 22:21 2/27/19 23:15 White Blood Count 19.0 10^3/uL Red Blood Count 5.28 10^6/uL Hemoglobin 14.6 g/dL Hematocrit 44.6 % Mean Corpuscular Volume 84.5 fL Mean Corpuscular Hemoglobin 27.7 pg Mean Corpuscular Hemoglobin Concent 32.7 g/dL Red Cell Distribution Width 16.6 % Platelet Count 276 10^3/uL Mean Platelet Volume 9.1 fL Neutrophils (%) (Auto) 87.7 % Lymphocytes (%) (Auto) 4.6 % Monocytes (%) (Auto) 6.5 % Neutrophils # (Auto) 16.7 10^3/uL Lymphocytes # (Auto) 0.9 10^3/uL Monocytes # (Auto) 1.2 10^3/uL Absolute Immature Granulocyte (auto 0.15 10^3 u/L Eosinophils % 0.3 % Basophils % 0.1 % Basophils # 0.0 10^3/uL Eosinophil Count 0.1 10^3/uL Prothrombin Time 17.4 SEC Prothrombin Time INR (Non-Therap) 1.9 Activated Partial Thromboplast Time 42.0 SEC Sodium Level 131 mmol/L Potassium Level 4.3 mmol/L Chloride Level 90.0 mmol/L Carbon Dioxide Level 32.9 mmol/L Anion Gap 12.4 Blood Urea Nitrogen 51 mg/dL Creatinine 2.02 mg/dL Estimated GFR () 38.5 BUN/Creatinine Ratio 25.0 Glucose Level 295 mg/dL Calcium Level 9.6 mg/dL Total Bilirubin 1.3 mg/dL Aspartate Amino Transf (AST/SGOT) 19 U/L Alanine Aminotransferase (ALT/SGPT) 31 U/L Alkaline Phosphatase 209 U/L Total Protein 8.5 g/dL Albumin 4.0 g/dL Globulin 4.5 Lipase 221 U/L Percent Immature Gran (Cell Imm) 0.80 % Differential Total Cells Counted 100 #CELLS Segmented Neutrophils 86 % Lymphocytes 5 % Monocytes 8 % Basophils 1 % Platelet Estimate ADEQUATE Platelet Morphology NORMAL Blood Morphology Comment NORMAL MORPHOLOGY Urine Collection Type UNKNOWN Urine Color RED Urine Appearance CLOUDY Urine Bilirubin NEGATIVE MG/DL Urine Ketones NEGATIVE Urine Specific [place] 1.010 Urine pH 7 Urine Protein 100 mg/dL Urine Urobilinogen NORMAL Urine Nitrate NEGATIVE Urine Leukocyte Esterase 500/uL 2+ Urine Blood 250 4+ Urine RBC TNTC RBC/HPF Urine WBC TNTC WBC/HPF Urine Squamous Epithelial Cells RARE #/HPF Urine Bacteria MANY Urine Glucose NORMAL Blood Gas Sample Site LEFT BRACHIAL ARTRY Blood Gas pH 7.608 Blood Gas PCO2 28.5 mmHg Blood Gas PO2 62.1 mmHg Blood Gas HCO3 27.9 mmol/L Blood Gas Base Excess 7.3 mmol/L Roland Test N/A Arterial Blood Oxygen Saturation 93.6 % Deoxyhemoglobin 6.2 % Carboxyhemoglobin 2.8 % Methemoglobin 0.2 % Total Hemoglobin 15.5 % Total Oxygen Concentration 19.8 % Lactic Acid (Blood Gas) 1.4 MMOL/L Oxygen Delivery Method (LAB) RA FiO2 21 % Bicarbonate 28.7 mmol/L Test 10/14/18 07:29 10/15/18 04:50 White Blood Count 18.6 10^3/uL 15.7 10^3/uL Red Blood Count 5.09 10^6/uL 5.09 10^6/uL Hemoglobin 14.1 g/dL 14.2 g/dL Hematocrit 42.6 % 42.9 % Mean Corpuscular Volume 83.7 fL 84.3 fL Mean Corpuscular Hemoglobin 27.7 pg 27.9 pg Mean Corpuscular Hemoglobin Concent 33.1 g/dL 33.1 g/dL Red Cell Distribution Width 16.7 % 16.8 % Platelet Count 270 10^3/uL 252 10^3/uL Mean Platelet Volume 9.4 fL 9.2 fL Neutrophils (%) (Auto) 85.4 % Lymphocytes (%) (Auto) 5.5 % Monocytes (%) (Auto) 7.6 % Neutrophils # (Auto) 15.9 10^3/uL Lymphocytes # (Auto) 1.0 10^3/uL Monocytes # (Auto) 1.4 10^3/uL Absolute Immature Granulocyte (auto 0.14 10^3 u/L Eosinophils % 0.6 % Basophils % 0.1 % Basophils # 0.0 10^3/uL Eosinophil Count 0.1 10^3/uL Sodium Level 135 mmol/L 133 mmol/L Potassium Level 3.7 mmol/L 4.4 mmol/L Chloride Level 92.0 mmol/L 93.0 mmol/L Carbon Dioxide Level 28.1 mmol/L 29.4 mmol/L Anion Gap 18.6 15.0 Blood Urea Nitrogen 54 mg/dL 48 mg/dL Creatinine 1.72 mg/dL 1.88 mg/dL Estimated GFR () 46.3 41.8 BUN/Creatinine Ratio 31.0 25.0 Glucose Level 138 mg/dL 144 mg/dL Calcium Level 8.9 mg/dL 8.9 mg/dL Total Bilirubin 1.1 mg/dL 1.0 mg/dL Aspartate Amino Transf (AST/SGOT) 20 U/L 25 U/L Alanine Aminotransferase (ALT/SGPT) 27 U/L 28 U/L Alkaline Phosphatase 203 U/L 199 U/L Total Protein 7.8 g/dL 7.9 g/dL Albumin 3.7 g/dL 3.6 g/dL Globulin 4.1 4.3 Percent Immature Gran (Cell Imm) 0.80 % Hemoglobin A1c 8.0 % Ammonia 12 umol/L Current Medications Medications (Trade) Dose Ordered Sig/Debbie PRN Reason Start Time Stop Time Status Last Admin Allopurinol (Zyloprim) 100 mg BID 10/14/18 21:00 11/13/18 20:59 10/14/18 21:37 Atorvastatin Calcium (Lipitor) 10 mg HS 10/14/18 21:00 11/13/18 20:59 10/14/18 21:37 Ceftriaxone Sodium 1000 mg/ Sodium Chloride 100 ml @ 100 mls/hr Q24HRS 10/14/18 20:00 11/13/18 19:59 10/14/18 21:37 Cholestyramine Resin (Prevalite Packet) 4 gm DAILY PRN CONSTIPATION 10/15/18 09:00 11/14/18 08:59 Clopidogrel Bisulfate (Plavix) 75 mg DAILY24 10/14/18 10:30 11/13/18 10:29 10/14/18 13:22 Dextrose (Dextrose 50%-Water Syringe) 25 ml STAT PRN HYPOGLYCEMIA 10/14/18 10:30 11/13/18 10:29 Ferrous Sulfate (Ferrous Sulfate) 325 mg DAILY 10/14/18 10:30 11/13/18 10:29 10/14/18 13:22 Folic Acid (Folic Acid) 1 mg DAILY 10/15/18 09:00 11/14/18 08:59 Hydroxyzine HCl (Atarax) 25 mg QID 10/14/18 13:00 11/13/18 12:59 10/14/18 21:37 Insulin Human Regular (Humulin R) Give 30 minutes before meal ACHS 10/14/18 11:30 11/13/18 11:29 10/14/18 21:21 Levothyroxine Sodium (Synthroid) 75 mcg ACB 10/15/18 06:30 11/14/18 06:29 10/15/18 06:04 Metoprolol Tartrate (Lopresser) 25 mg BID 10/14/18 21:00 11/13/18 20:59 10/14/18 21:37 Pantoprazole Sodium (Protonix) 40 mg DAILY 10/14/18 09:00 11/13/18 08:59 10/14/18 10:18 Pantoprazole Sodium (Protonix) 40 mg DAILY 10/14/18 10:30 11/13/18 10:29 Potassium Chloride (Klor-Con 10) 10 meq BID 10/14/18 21:00 11/13/18 20:59 10/14/18 21:37 Prednisone (Prednisone) 5 mg DAILY 10/14/18 10:30 11/13/18 10:29 10/14/18 13:22 Sodium Chloride 1,000 ml @ 60 mls/hr [id number] 10/14/18 14:00 11/13/18 13:59 10/14/18 13:34 Spironolactone (Aldactone) 25 mg DAILY 10/14/18 10:30 11/13/18 10:29 10/14/18 13:23 Sucralfate (Carafate) 1 gm BID 10/14/18 21:00 11/13/18 20:59 10/14/18 21:37 Thiamine HCl (Thiamine HCl) 100 mg DAILY 10/14/18 10:30 11/13/18 10:29 10/14/18 13:23 Torsemide (Demadex) 20 mg TID 10/14/18 15:00 11/13/18 14:59 10/14/18 21:37 Sepsis Infection Criteria Pres: Documented Infection LEVEL 1 SEPSIS INFECTION CRITE: Urinary Tract Infection LEVEL 2-SIRS (LIST ALL THAT AP: [id number] Cardiovascular Evidence: Not Assessed or None Hematologic Evidence: None/Not assessed Hepatic Evidence: None/Not assessed Metabolic Evidence: None/Not assessed Neurological Evidence: None/Not assessed Respiratory Evidence: None/Not assessed Renal Evidence: Creatinine Lvl>2.0 O2 Sat by Pulse Oximetry: 93 Assessment/Plan Assessment/Plan Assessment/Plan 1.) Gross Hematuria - Resolved. Likely secondary to multiple blood thinners and cirrhosis. Holding Xarelto but need to continue Plavix since has fresh stent in LLE. 2.) UTI - Continue abx for another 7 days. 3.) Dehydration - resolved. 4.) PAD - Continue Plavix. 5.) Afib - Follow up with cardiology ro and let them know we had to stop Xarelto secondary to continued active gross hematuria. BARTOLO MAE MD Oct 15, 2018 07:14
[2018-10-15] MEDS ORDERED: PREVALITE PACKET PO PRN (09:00)
[2018-10-15] MEDS ORDERED: FOLIC ACID PO SCH (09:00)
[2018-10-15] MEDS: PROTONIX PO SCH ×2 (09:00→09:36)
[2018-10-15] MEDS: ZYLOPRIM PO SCH (09:35)
[2018-10-15] MEDS: ALDACTONE PO SCH (09:36)
[2018-10-15] MEDS: THIAMINE HCL PO SCH (09:36)
[2018-10-15] MEDS: KLOR-CON 10 PO SCH (09:36)
[2018-10-15] MEDS: FERROUS SULFATE PO SCH (09:36)
[2018-10-15] MEDS: ATARAX PO SCH (09:36)
[2018-10-15] MEDS: LOPRESSER PO SCH (09:36)
[2018-10-15] MEDS: PREDNISONE PO SCH (09:37)
[2018-10-15] MEDS: DEMADEX PO SCH (09:37)
[2018-10-15] MEDS: TRADJENTA PO SCH (09:37)
[2018-10-15] MEDS: CARAFATE PO SCH (09:37)
[2018-10-15] MEDS ORDERED: CIPR250T28 PO (10:36)
[2018-10-15 11:47] VITALS: BP 117/65
--- NOTE | 2018-10-15 15:29 | NUR ---
DISCHARGE PT DC AT THIS TIME. PT UNDERSTANDS ALL DC INSTRUCTIONS INCLUDING FOLLOW UP WITH DR. GUZMAN AND LABS TO BE DRAWN ON 10/18/18. NO OTHER NEEDS NOTED AT THIS TIME. PT LEAVES FLOOR BY WHEELCHAIR TO PRIVATE VEHICLE ACCOMPANIED BY FAMILY MEMBER
--- NOTE | 2018-10-15 21:07 | DSH ---
DATE OF DISCHARGE: 10/15/2018 ADMITTING DIAGNOSES: 1. Gross hematuria. 2. Urinary tract infection. 3. Leukocytosis. 4. Acute renal failure. 5. Hyponatremia. 6. Diabetes mellitus type 2. 7. Cirrhosis. 8. Peripheral arterial disease. 9. Hypocoagulable state. DISCHARGE DIAGNOSES: 1. Gross hematuria. 2. Urinary tract infection. 3. Leukocytosis. 4. Acute renal failure. 5. Hyponatremia. 6. Diabetes mellitus type 2. 7. Cirrhosis. 8. Peripheral arterial disease. 9. Hypocoagulable state. DISCHARGE DISPOSITION: Home. DISCHARGE MEDICATIONS: 1. Cipro 500 mg b.i.d. for 7 days. 2. Resume previous home medications and please see discharge medication reconciliation form. FOLLOWUP: 1. Follow up with PCP within 2 weeks. 2. Follow up with Cardiology within 1 week. HOSPITAL COURSE: This is an 83-year-old male who was admitted to [facility] on the above date for gross hematuria. The patient has a history of active cirrhosis and has been taking blood thinners in the form of Plavix and Xarelto. The patient had a stent in the left lower extremity that was placed 4 months ago and therefore the Plavix could not be stopped. He was taking Xarelto for atrial fibrillation and it was felt that this was the only safe option since he was having active gross hematuria. He was started on aggressive IV fluid resuscitation and started on IV antibiotics in the form of Rocephin and Levaquin for his urinary tract infection. His condition improved significantly with his urine clearing each day while he was here. Dr. Ruffin saw the patient on 10/15/2018 and agreed that cystoscopy would not be molina at this time secondary to the blood thinners that the patient has been on. He was recommended to make an appointment to follow up with Dr. Ruffin. The patient was feeling much better on 10/15/2018 and was not having any further bleeding problems. He was requesting to be discharged. 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 I also recommended that he follow up with his PCP within 2 weeks. Vinay Parry MD DR: PRINCESS/eula JOB# [id number]
--- NOTE | 2018-10-16 08:07 | CNH ---
DATE OF CONSULTATION: 10/15/2018 This is an 83-year-old male who was referred for urological evaluation because of gross hematuria. The patient has history of heart failure and some heart disease and taking 2 blood thinners and the hospitalist called me today and said he stopped one of the blood thinner, but he is still on Plavix due to the presence of a cardiac stent, Today , the urine is getting much clearer and is voiding fairly well and he has no flank pain, no suprapubic pain, no dysuria .Case was discussed with the patient and with Dr. Rankin and we will just observe him further at this time and if the patient will be discharged, I will follow him up in the office. Grayson Ruffin MD DR: SANTIAGO/eula JOB# [id number] GRICELDA
== END 2018-10-15 13:00 | disposition home or self-care (01) | DRG 689 ==
LOC: ER 19:50 → MS 23:49 → EDPENDDISTM 10-15 11:45 → EDPENDDISDT 10-15 11:45 → EDPENDDISTM 10-15 11:47
PROVIDERS: ADMIT Internal Medicine; ATTEND Internal Medicine
DX: N39.0 Urinary tract infection, site not specified (principal); N17.0 Acute kidney failure with tubular necrosis; I50.22 Chronic systolic (congestive) heart failure; I13.0 Hypertensive heart and chronic kidney disease with heart failure and stage 1 through stage 4 chronic kidney disease, or unspecified chronic kidney disease; E87.1 Hypo-osmolality and hyponatremia; D68.59 Other primary thrombophilia; R31.0 Gross hematuria; E11.65 Type 2 diabetes mellitus with hyperglycemia; E11.22 Type 2 diabetes mellitus with diabetic chronic kidney disease; E11.51 Type 2 diabetes mellitus with diabetic peripheral angiopathy without gangrene; K74.60 Unspecified cirrhosis of liver; J44.9 Chronic obstructive pulmonary disease, unspecified; N18.9 Chronic kidney disease, unspecified; E03.9 Hypothyroidism, unspecified; E78.5 Hyperlipidemia, unspecified; E86.0 Dehydration; M10.9 Gout, unspecified; I48.91 Unspecified atrial fibrillation; K21.9 Gastro-esophageal reflux disease without esophagitis; Z79.01 Long term (current) use of anticoagulants; Z79.02 Long term (current) use of antithrombotics/antiplatelets; Z91.013 Allergy to seafood; Z91.018 Allergy to other foods; Z87.11 Personal history of peptic ulcer disease
CPT/HCPCS: 36415; 36600; 74176; 80053; 81000; 82140; 82803; 82948; 83036; 83690; 85025; 85027; 85610; 85730; 86900; 87040; 87077; 87086; 87186; 99285; G0378; J0696; J1815; J1956; J3480; J7030; J7050; J7512

== ENCOUNTER → 2018-10-18 | Outpatient (CLI) | payer MEDICARE ==
[~2018-10-18] MED LIST changes: +ALBU8.5H7 IH; +CHOL378P PO; +CHOL400C5 PO; +CIPR250T28 PO; +FERR325T15 PO; +FOLI1TAB21 PO; +HYDR25CA93 PO; +LEVO75TA6 PO; +LINA5TAB PO; +PANT40TA5 PO; +POTA10TA31 PO; +PRED5TAB17 PO; +SPIR25TA5 PO; +SUCR1ORA5 PO; +VIT1CAPS12 PO; +[UNRECOGNIZED DRUG - CODE] PO
[2018-10-18 14:56] LABS: BASOPHIL # 0.1 10^3/uL (0.0-0.1); BASOPHIL % 0.7 % (0.0-0.2); EOSINOPHIL # 0.3 10^3/uL (0.0-0.2); EOSINOPHIL % 2.3 % (0.0-5.0); HEMOGLOBIN 14.2 g/dL (13.9-16.3); LYMPHOCYTES # 1.4 10^3/uL (1.0-4.8); MEAN CELL HGB 28.3 pg (26-34); MEAN CELL HGB CONCENTRATION 33.3 g/dL (33-37); MEAN CORP VOLUME 85.2 fL (78-100); MEAN PLATELET VOLUME 9.7 fL (7.8-11.0); MONOCYTES # 1.4 10^3/uL (0.3-0.8); MONOCYTES % 10.1 % (5.0-12.0); NEUTROPHIL # 10.1 10^3/uL (1.8-7.7); NEUTROPHILS % 74.3 % (41.0-85.0); RED CELL DISTRIBUTION WIDTH 16.2 % (11.5-14.5); WHITE BLOOD CELL 13.6 10^3/uL (4.5-11.0)
[2018-10-18 16:08] LABS: BAND NEUTROPHILS 3 % (2-6); EOSINOPHIL 5 % (1-4); LYMPHOCYTE 15 % (25-36); MONOCYTE 5 % (3-9); SEGMENTED NEUTROPHILS 70 % (31-76)
== END | disposition home or self-care (01) ==
LOC: NPLAB 14:22
PROVIDERS: ATTEND Internal Medicine
DX: D50.9 Iron deficiency anemia, unspecified (principal); I13.0 Hypertensive heart and chronic kidney disease with heart failure and stage 1 through stage 4 chronic kidney disease, or unspecified chronic kidney disease; N18.3 Chronic kidney disease, stage 3 (moderate); I50.22 Chronic systolic (congestive) heart failure
CPT/HCPCS: 36415; 85025

== ENCOUNTER 2018-11-16 08:36 | Emergency (ER) | payer MEDICARE ==
[~2018-11-16] VITALS: Ht 167.6 cm; Wt 68.0 kg
[2018-11-16] VITALS (9 sets, daily range): BP systolic 136–148; BP diastolic 69–83
--- NOTE | 2018-11-16 09:04 | NUR ---
ARRIVAL PATIENT ARRIVED TO ED3 VIA W/C WITH FAMILY, C/O OF URINE RETENTION TODAY,PATIENT STATES HE DRANK ALOT OF WATER AND IS NOW UNABLE TO URINATE. SPOKE WITH FAMILY AND FAMILY STATES PATIENT HAS RENAL DISEASE AND DID HAVE STENTS PLACED IN HIS LEGS October TO INCREASE BLOOD FLOW TO THE LEGS. COLOR TO LEGS IS NORMAL PER FAMILY. PATIENT SENT TO THE ED BY [facility] FOR FURTHER EVAL.
--- NOTE | 2018-11-16 09:10 | ER.PDOC ---
General Chief Complaint: Male Stated Complaint: MALE Time seen by MD: 08:58 Source: patient, family Exam Limitations: clinical condition History of Present Illness Initial Comments Pt sent from home by home health nurse, due to the fact that he could not urinate, his legs are bluish and hard to exam Timing/Duration: constant, getting worse Severity/Quality: moderate, sharpness Location: RLQ Associated Symptoms: Retention Sexual History: Non-contributory Prior symptoms/Treatment: Similar symptoms previous, Recenly Seen, Treated by Doctor, Recently Hospitalized Allergies: Coded Allergies: saffron (Verified Allergy, Mild, 06/04/18) shrimp (Verified Allergy, Mild, 06/04/18) Home Meds Active Scripts Ciprofloxacin Hcl (CIPRO) 250 Mg Tablet, 500 MG PO BID for 5 Days, TABLET Prov:BARTOLO MAE MD 10/15/18 Reported Medications Rivaroxaban (XARELTO) 10 Mg Tablet, 2.5 MG PO BID, #10 TAB 10/13/18 Prednisone (PREDNISONE) 5 Mg Tab.ds.pk, 5 MG PO DAILY24 10/13/18 Cholestyramine (With Sugar) (CHOLESTYRAMINE POWDER) 378 Gm Powder, 378 GM PO PRN 10/13/18 Sucralfate (CARAFATE) 1 Gm/10 Ml Oral.susp, 10 MILLILITER PO BID, #120 MILLILITER 1 Refill 10/13/18 Levothyroxine Sodium (LEVOTHYROXINE SODIUM) 75 Mcg Tablet, 1 TAB PO DAILY, #30 TAB 5 Refills 10/13/18 Lovastatin (LOVASTATIN) 20 Mg Tablet, 20 MG PO DAILY24, TABLET 10/13/18 Metoprolol Tartrate 25MG (LOPRESSER 25MG) 25 Mg Tablet, 25 MG PO q12 for HYPERTENSION, #60 TAB 10/13/18 Clopidogrel Bisulfate (PLAVIX) 75 Mg Tablet, 75 MG PO DAILY24, TABLET 10/13/18 Spironolactone (SPIRONOLACTONE) 25 Mg Tablet, 25 MG PO DAILY24, TABLET 10/13/18 Pantoprazole Sodium (PANTOPRAZOLE SODIUM) 40 Mg Tablet.dr, 40 MG PO DAILY24 10/13/18 Allopurinol (ALLOPURINOL) 100 Mg Tablet, 100 MG PO BID, TABLET 10/13/18 Torsemide (TORSEMIDE) 20 Mg Tablet, 20 MG PO TID, TABLET 10/13/18 Potassium Chloride (POTASSIUM CHLORIDE) 20 Meq Tab.er.prt, 1 TAB PO BID, #180 TAB 3 Refills 10/13/18 Potassium Chloride (POTASSIUM CHLORIDE) 10 Meq Tab.er.prt, 10 MEQ PO BID 10/13/18 Umeclidinium Brm/Vilanterol Tr (Anoro Ellipta 62.5-25 Mcg INH) 1 Each Disk.w.dev , 1 EACH IH DAILY24 10/13/18 Albuterol Sulfate (PROAIR HFA) 8.5 Gm Hfa.aer.ad, 8.5 GM IH QID 10/13/18 Past Medical History Medical History: cardiac problems, congestive heart failure, COPD, renal disease Surgical History: stent, other Social History Smoking: non-smoker Alcohol Use: none Drug Use: none Review of Systems Constitutional: see HPI EENTM: no symptoms reported Respiratory: no symptoms reported Cardiovascular: no symptoms reported Gastrointestinal: see HPI Genitourinary: see HPI Musculoskeletal: no symptoms reported Skin: see HPI Psychiatric/Neurological: no symptoms reported Endocrine: no symptoms reported Hematologic/Lymphatic: no symptoms reported Physical Exam General Appearance: No Apparent Distress, WD/WN EENT: eyes nml inspection, nml ENT inspection, pharynx nml Neck: nml inspection, non-tender Abdomen: Abnormal Bowel Sounds (decreeased), Distended, Tenderness (RLQ) Male Genitals: Normal Genitalia Back: nml inspection Extremities: Normal Range of Motion, Pedal Edema (2/6), Slow Capillary Refill, Other (cyanotic, hardened skin, recent stents placed) 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 (11/16/18 08:59) Urinalysis (11/16/18 08:59) Saline Lock (11/16/18 08:59) Place Curtis Catheter (11/16/18 08:59) Ekg-Routine (11/16/18 08:59) Us [place] (11/16/18 09:27) Ct Abd/Pelvis Wo Iv Contrast (11/16/18 10:12) Acetaminophen (Tylenol) (11/16/18 10:29) Acetaminophen (Tylenol) (11/16/18 10:34) Vital Signs Date Time Temp Pulse Resp B/P (MAP) Pulse Ox O2 Delivery O2 Flow Rate FiO2 11/16/18 09:03 98.0 91 18 147/75 (99) 98 Room Air 98.0 11/16/18 08:54 98.0 91 18 98 Room Air 98.0 11/16/18 08:53 98.0 91 18 98.0 10/15/18 11:47 66 10/15/18 09:36 66 Administered Medications Medications (Trade) Dose Ordered Sig/Debbie Route PRN Reason Start Time Stop Time Status Last Admin Dose Admin Acetaminophen (Tylenol) 1,000 mg STAT STAT PO 11/16/18 10:29 11/16/18 10:30 DC 11/16/18 10:43 1,000 MG Laboratory Tests Test 11/16/18 09:09 11/16/18 09:15 11/16/18 09:30 White Blood Count 14.7 10^3/uL (4.5-11.0) H Red Blood Count 4.14 10^6/uL (4.50-5.90) L Hemoglobin 11.5 g/dL (13.9-16.3) L Hematocrit 35.0 % (37.0-53.0) L Mean Corpuscular Volume 84.5 fL (78-100) Mean Corpuscular Hemoglobin 27.8 pg (26-34) Mean Corpuscular Hemoglobin Concent 32.9 g/dL (33-37) L Red Cell Distribution Width 15.8 % (11.5-14.5) H Platelet Count 337 10^3/uL (150-400) Mean Platelet Volume 8.9 fL (7.8-11.0) Neutrophils (%) (Auto) 83.9 % (41.0-85.0) Lymphocytes (%) (Auto) 6.3 % (24.0-44.0) *L Monocytes (%) (Auto) 7.0 % (5.0-12.0) Neutrophils # (Auto) 12.3 10^3/uL (1.8-7.7) H Lymphocytes # (Auto) 0.9 10^3/uL (1.0-4.8) L Monocytes # (Auto) 1.0 10^3/uL (0.3-0.8) H Absolute Immature Granulocyte (auto 0.34 10^3 u/L (0-2) Eosinophils % 0.3 % (0.0-5.0) Basophils % 0.2 % (0.0-0.2) Basophils # 0.0 10^3/uL (0.0-0.1) Eosinophil Count 0.1 10^3/uL (0.0-0.2) Prothrombin Time 11.2 SEC (9.8-11.9) Prothrombin Time INR (Non-Therap) 1.1 PTT 32.2 SEC (24.67-30.72) Sodium Level 131 mmol/L (132-145) L Potassium Level 4.4 mmol/L (3.6-5.2) Chloride Level 93.0 mmol/L (96-109) L Carbon Dioxide Level 27.4 mmol/L (20.0-32) Anion Gap 15.0 Blood Urea Nitrogen 38 mg/dL (7-18) H Creatinine 1.68 mg/dL (0.59-1.40) H Estimated GFR () 47.6 (>/=60) BUN/Creatinine Ratio 22.0 Glucose Level 276 mg/dL (70-110) H Calcium Level 8.7 mg/dL (8.4-10.5) Total Bilirubin 2.0 mg/dL (0.2-1.0) H Aspartate Amino Transferase (AST) 22 U/L (0-35) Alanine Aminotransferase (ALT) 26 U/L (12-78) Alkaline Phosphatase 203 U/L (50-136) H Total Protein 7.1 g/dL (6.4-8.2) Albumin 3.7 g/dL (3.4-5.0) Globulin 3.4 Amylase Level 78 U/L (25-115) Lipase 178 U/L (114-286) Percent Immature Gran (Cell Imm) 2.30 % (0.00-0.50) H Differential Total Cells Counted 100 #CELLS Segmented Neutrophils 84 % (31-76) H Band Neutrophils 4 % (2-6) Lymphocytes 3 % (25-36) L Monocytes 5 % (3-9) Absolute Eosinophils (Manual) 1 % (1-4) Basophils 1 % (0-2) Metamyelocytes 2 % Platelet Morphology NORMAL Urine Collection Type VOID Urine Color YELLOW (YELLOW) Urine Appearance CLEAR (CLEAR) Urine Bilirubin NEGATIVE MG/DL (NEGATIVE) Urine Ketones NEGATIVE (NEGATIVE) Urine Specific [place] 1.010 (1.005-1.035) Urine pH 6 (5.0-6.0) Urine Protein NEGATIVE (NEGATIVE) Urine Urobilinogen NORMAL (NEGATIVE) Urine Nitrate NEGATIVE (NEGATAIVE) Urine Leukocyte Esterase NEGATIVE (NEGATIVE) Urine Blood NEGATIVE (NEGATIVE) Urine Glucose 50 (NEGATIVE) H Departure Time of Disposition: 11:20 Disposition: 02 XFER SHT-TRM HOSP Impression: Primary Impression: Retroperitoneal hematoma Additional Impression: Urinary retention Condition: Stable Referrals: CEDRIC YU MD (PCP) PRIMARY CARE PROVIDER Duration or Time Spent with Pa: 20 Problem Qualifiers SHELTON STRAUSS MD Nov 16, 2018 09:09
[2018-11-16 09:14] LABS: BASOPHIL % 0.2 % (0.0-0.2); EOSINOPHIL # 0.1 10^3/uL (0.0-0.2); EOSINOPHIL % 0.3 % (0.0-5.0); HEMOGLOBIN 11.5 g/dL (13.9-16.3); LYMPHOCYTES # 0.9 10^3/uL (1.0-4.8); LYMPHOCYTES % 6.3 % (24.0-44.0); MEAN CELL HGB 27.8 pg (26-34); MEAN CELL HGB CONCENTRATION 32.9 g/dL (33-37); MEAN CORP VOLUME 84.5 fL (78-100); MEAN PLATELET VOLUME 8.9 fL (7.8-11.0); NEUTROPHIL # 12.3 10^3/uL (1.8-7.7); NEUTROPHILS % 83.9 % (41.0-85.0); RED CELL DISTRIBUTION WIDTH 15.8 % (11.5-14.5); WHITE BLOOD CELL 14.7 10^3/uL (4.5-11.0)
--- NOTE | 2018-11-16 09:22 | NUR ---
ULTRASOUND ROLANDO FROM ULTRASOUND AT BEDSIDE.
[2018-11-16 09:39] LABS: CALCIUM 8.7 mg/dL (8.4-10.5); CARBON DIOXIDE 27.4 mmol/L (20.0-32)
[2018-11-16 09:42] LABS: BILIRUBIN,URINE NEGATIVE (NEGATIVE); UROBILINOGEN,URINE NORMAL (NEGATIVE)
[2018-11-16 09:48] LABS: APPEARANCE,URINE CLEAR (CLEAR); UA COLOR YELLOW (YELLOW)
--- NOTE | 2018-11-16 10:17 | PCM.EKG ---
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
[2018-11-16] MEDS ORDERED: TYLENOL PO STA (10:29)
[2018-11-16] MEDS ORDERED: TYLENOL PO ONE (10:34)
--- NOTE | 2018-11-16 10:37 | NUR ---
CAT SCAN PATIENT TO CAT SCAN
--- NOTE | 2018-11-16 10:39 | NUR ---
CAT SCAN PATIENT BACK FROM CAT SCAN
[2018-11-16 10:45] LABS: BAND NEUTROPHILS 4 % (2-6); LYMPHOCYTE 3 % (25-36); SEGMENTED NEUTROPHILS 84 % (31-76)
[2018-11-16 10:46] LABS: BASOPHIL 1 % (0-2); EOSINOPHIL 1 % (1-4); MONOCYTE 5 % (3-9)
--- NOTE | 2018-11-16 10:48 | DIREP ---
PROCEDURE:US ANKLE BRACHIAL INDEX COMPARISON:None. INDICATIONS:Cyanosis TECHNIQUE:A color duplex Doppler ultrasound examination of the bilateral lower extremities was performed. Color image and bidirectional spectral Doppler wave form analysis, and peak systolic flow measurements of the posterior tibial and dorsalis pedis arteries were performed. FINDINGS: RIGHT LOWER EXTREMITY: WILLIAM DP: 0.93 PT: 1.05 POSTERIOR TIBIAL:20.0 cm/sMonophasic DORSALIS PEDIS:85.5 cm/sBiphasic LEFT LOWER EXTREMITY: WILLIAM DP: 1.15 PT: 1.28 POSTERIOR TIBIAL:23.7 cm/sMonophasic DORSALIS PEDIS:47.9 cm/sBiphasic CONCLUSION: 1. Normal ankle brachial indices. 2. Severe disease suggested in the posterior tibial arteries given monophasic waveform. 3. Moderate disease of the dorsalis pedis arteries given biphasic waveforms. ABIs greater than 1.4 indicate noncompressible vessels, likely to have significant peripheral vascular disease (PVD). ABIs of 0.91 to 1.3 indicate no significant obstructive disease. ABIs of 0.41 to 0.90 indicate grade I claudication. ABIs less than 0.4 indicate limb-threatening ischemia of grade I or grade II. Dictated by: AMANDA Physician on 11/16/2018 at 10:12 AM ld
--- NOTE | 2018-11-16 11:15 | NUR ---
RADIOLOGIST DOCTOR STRAUSS ON THE PHONE WITH RADIOLOGIST AT THIS TIME.
--- NOTE | 2018-11-16 11:18 | DIREP ---
PROCEDURE:CT ABDOMEN/PELVIS W/O CONTRAST COMPARISON:[facility], CT, CT ABD/PELVIS W/O, 10/13/2018, 10:36 PM. INDICATIONS:Distension, urinary retention TECHNIQUE:Axial images were created through the abdomen and pelvis without intravenous contrast material. No oral contrast was administered. Sagittal and coronal reconstructions were performed from source images. FINDINGS: LUNG BASES:Moderate cardiomegaly. Coronary arterial calcifications. Scattered reticular scarring in the lungs. LIVER:Normal. No significant liver lesions are identified. BILIARY:Normal. No visible dilatation or calcification. PANCREAS:Normal. No lesion, fluid collection, ductal dilatation, or atrophy. SPLEEN:Normal. No enlargement or focal lesion. ADRENALS:Normal. No mass or enlargement. URINARY TRACT:Hematoma in the retroperitoneum and pelvic sidewall with extrinsic compression of the urinary bladder. Mild bilateral hydronephroureter present. Curtis catheter present within the urinary bladder. AORTA/VASCULAR:There are excessive aortic atherosclerotic calcifications present. No aneurysm. RETROPERITONEUM:Large right retroperitoneal hemorrhage in the lower abdomen extending into the pelvis, hematoma in the lower abdomen/upper pelvis measures 5.7 x 6.9 cm with additional hematoma along the left pelvic sidewall measuring 8.2 x 4.3 cm. BOWEL/MESENTERY:Normal appendix. Sigmoid diverticulosis. No bowel obstruction. ABDOMINAL WALL:Inflammatory changes right inguinal region.. No mass or hernia. PELVIC ORGANS:Right pelvic sidewall hematoma with extrinsic compression and leftward deviation of the urinary bladder with Curtis catheter present. BONES:Multilevel lumbar spondylosis. OTHER:Negative. CONCLUSION: 1. Large right retroperitoneal and pelvic side wall hematoma. 2. Pelvic sidewall hematoma produces extrinsic compression of the bladder likely contributes to mild hydronephroureter. 3. Moderate cardiomegaly. Coronary arterial calcifications. 4. Colonic diverticulosis. This report was called by telephone at 11:16 am on November 16, [address] Agusto Mitchell. Dictated by: Khari Metcalf M.D. on 11/16/2018 at 11:04 AM
--- NOTE | 2018-11-16 11:50 | NUR ---
[facility] UNAVAILABLE TO TAKE TRANSFER
--- NOTE | 2018-11-16 11:51 | NUR ---
[facility] CALLED [facility] ABOUT TRANSFER, WILL CALL BACK .
--- NOTE | 2018-11-16 11:56 | NUR ---
[facility]IENT, WILL BE TO [facility]
[2018-11-16] MEDS ORDERED: NORCO 10MG PO ONE (12:39)
--- NOTE | 2018-11-16 12:47 | NUR ---
[facility] HERE TO RESUME CARE OF PATIENT.
[2018-11-16] MEDS ORDERED: NORCO 10MG PO PRN (13:00)
== END 2018-11-16 12:47 | disposition short-term general hospital (02) ==
LOC: ER 08:36
DX: K66.1 Hemoperitoneum (principal); R33.9 Retention of urine, unspecified; I50.9 Heart failure, unspecified; J44.9 Chronic obstructive pulmonary disease, unspecified; Z79.899 Other long term (current) drug therapy; Z91.013 Allergy to seafood; Z91.02 Food additives allergy status
CPT/HCPCS: 36415; 51702; 74176; 80053; 81002; 82150; 83690; 85025; 85610; 85730; 93005; 93922; 99285; A4338

== ENCOUNTER → 2018-12-20 | Outpatient (CLI) | payer MEDICARE ==
[2018-12-20 10:51] LABS: BASOPHIL % 0.4 % (0.0-0.2); EOSINOPHIL # 0.2 10^3/uL (0.0-0.2); EOSINOPHIL % 1.8 % (0.0-5.0); HEMOGLOBIN 12.4 g/dL (13.9-16.3); LYMPHOCYTES # 0.9 10^3/uL (1.0-4.8); LYMPHOCYTES % 8.9 % (24.0-44.0); MEAN CELL HGB 27.6 pg (26-34); MEAN CELL HGB CONCENTRATION 32.7 g/dL (33-37); MEAN CORP VOLUME 84.4 fL (78-100); MEAN PLATELET VOLUME 8.6 fL (7.8-11.0); MONOCYTES % 9.7 % (5.0-12.0); NEUTROPHILS % 77.5 % (41.0-85.0); RED CELL DISTRIBUTION WIDTH 17.7 % (11.5-14.5); WHITE BLOOD CELL 10.3 10^3/uL (4.5-11.0)
[2018-12-20 11:04] LABS: CALCIUM 9.6 mg/dL (8.4-10.5); CARBON DIOXIDE 29.7 mmol/L (20.0-32)
--- NOTE | 2018-12-20 19:00 | DIREP ---
PROCEDURE:CT ABDOMEN W/O COMPARISON:[facility], CT, CT ABD/PELVIS W/O, 11/16/2018, 10:38 AM. INDICATIONS:K74.60 CIRRHOSIS OF LIVER TECHNIQUE:Axial images were created through the abdomen without intravenous contrast material. No oral contrast was administered. Sagittal and coronal reconstructions were performed from source images. FINDINGS: LUNG BASES:Normal. No visible pulmonary or pleural disease. LIVER:Normal. No significant liver lesions are identified. BILIARY:Suspected small calcification in the dependent portion of the gallbladder. This could be confirmed with sonography. PANCREAS:Normal. No lesion, fluid collection, ductal dilatation, or atrophy. SPLEEN:Normal. No enlargement or focal lesion. ADRENALS:Normal. No mass or enlargement. URINARY TRACT:Normal. No focal lesions or hydronephrosis. The right hydronephrosis has resolved since the previous study dated November 16 2018. AORTA/VASCULAR:Normal. No aneurysm. RETROPERITONEUM:Resolving retroperitoneal hematoma involving the right retroperitoneum and pelvic sidewall. This has decreased in size since the previous study dated November 16 2018. It now measures approximately 10.5 cm in maximum AP dimension by 5.7 cm in maximum transverse dimension by 10 cm in maximum craniocaudad dimension. BOWEL/MESENTERY:Mild sigmoid diverticulosis with no diverticulitis ABDOMINAL WALL:Normal. No mass or hernia. PELVIC ORGANS:The pelvis was not imaged. BONES:Normal for age. No bony lesion or acute fracture. OTHER:Negative. CONCLUSION:1. Interval reduction in size of retroperitoneal and right pelvic sidewall hematoma since November 16 2018 with interval resolution of right hydronephrosis. Moderate mass effect on the bladder persists. The bladder wall is thickened and follow-up to complete clearing is recommended to exclude underlying neoplasm. 2. Moderate cardiomegaly. 3. Cholelithiasis. 4. Cirrhotic liver. 5. Mild sigmoid diverticulosis with no diverticulitis. 6. Moderate degenerative changes in the thoracolumbar spine. 7. CT scan of the abdomen and pelvis is otherwise normal. Dictated by: Ilan Graham M.D. on 12/20/2018 at 06:49 PM
== END | disposition home or self-care (01) ==
LOC: RAD 10:30
PROVIDERS: ATTEND Nurse Practitioner
DX: K57.30 Diverticulosis of large intestine without perforation or abscess without bleeding (principal); E11.9 Type 2 diabetes mellitus without complications; M47.814 Spondylosis without myelopathy or radiculopathy, thoracic region; K80.20 Calculus of gallbladder without cholecystitis without obstruction
CPT/HCPCS: 36415; 74150; 80053; 80076; 85025

== ENCOUNTER 2019-01-24 11:31 | Emergency (ER) | payer MEDICARE ==
[~2019-01-24] VITALS: Ht 162.6 cm; Wt 69.9 kg
[2019-01-24 11:53] VITALS: BP 98/59
[2019-01-24] MEDS ORDERED: NS 1000ML 1,000 ML IV STA (11:55)
[2019-01-24] MEDS ORDERED: NS 1000ML 1,000 ML ONE (12:07)
--- NOTE | 2019-01-24 12:12 | PCM.EKG ---
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
--- NOTE | 2019-01-24 12:29 | DIREP ---
PROCEDURE:CHEST 1 VIEW COMPARISON:[facility], CT, CT ABDOMEN W/O, 12/20/2018, 04:[address] [facility], CT, CT CHEST W/O, 08/05/2018, 10:[address] [facility], CR, XRAY CHEST SINGLE VW, 06/04/2018, 05:37 PM. INDICATIONS:AMS FINDINGS: LUNGS/PLEURA:Mild chronic interstitial fibrotic changes. No other significant pulmonary parenchymal abnormalities. No effusions. VASCULATURE:Normal. Unremarkable pulmonary vasculature. CARDIAC:Borderline cardiomegaly. MEDIASTINUM:Normal. No visible mass or adenopathy. BONES:Mild degenerative disc disease and spondylosis without visible acute abnormalities. OTHER:Negative. CONCLUSION:Mild chronic interstitial fibrosis. No definite acute cardiopulmonary abnormalities. Dictated by: Trell Cardona M.D. on 01/24/2019 at 12:26 PM
[2019-01-24 13:22] LABS: BILIRUBIN,URINE NEGATIVE (NEGATIVE)
[2019-01-24 13:29] LABS: APPEARANCE,URINE CLOUDY (CLEAR); UA COLOR STRAW (YELLOW)
[2019-01-24] MEDS ORDERED: ROCEPHIN 1,000 MG in NS 100ML 100 ML IV STA (13:53)
--- NOTE | 2019-01-24 14:03 | ER.PDOC ---
General Chief Complaint: General Complaint Stated Complaint: MALE TRAVEL OUT OF US: No Time seen by MD: 12:30 Source: family History of Present Illness Initial Comments Sent to the ED for UTI. Per daughter, patient was acting confused yesterday but not today. Took him to Urgent care and urinalysis showed a UTI. Patient was asked to come to the ED. He has no complaints. Severity: moderate Associated Symptoms: denies symptoms Allergies: Coded Allergies: saffron (Verified Allergy, Mild, 06/04/18) shrimp (Verified Allergy, Mild, 06/04/18) Home Meds Active Scripts Ciprofloxacin Hcl (CIPRO) 250 Mg Tablet, 500 MG PO BID for 5 Days, TABLET Prov:BARTOLO MAE MD 10/15/18 Reported Medications Rivaroxaban (XARELTO) 10 Mg Tablet, 2.5 MG PO BID, #10 TAB 10/13/18 Prednisone (PREDNISONE) 5 Mg Tab.ds.pk, 5 MG PO DAILY24 10/13/18 Cholestyramine (With Sugar) (CHOLESTYRAMINE POWDER) 378 Gm Powder, 378 GM PO PRN 10/13/18 Sucralfate (CARAFATE) 1 Gm/10 Ml Oral.susp, 10 MILLILITER PO BID, #120 MILLILITER 1 Refill 10/13/18 Levothyroxine Sodium (LEVOTHYROXINE SODIUM) 75 Mcg Tablet, 1 TAB PO DAILY, #30 TAB 5 Refills 10/13/18 Lovastatin (LOVASTATIN) 20 Mg Tablet, 20 MG PO DAILY24, TABLET 10/13/18 Metoprolol Tartrate 25MG (LOPRESSER 25MG) 25 Mg Tablet, 25 MG PO q12 for HYPERTENSION, #60 TAB 10/13/18 Clopidogrel Bisulfate (PLAVIX) 75 Mg Tablet, 75 MG PO DAILY24, TABLET 10/13/18 Spironolactone (SPIRONOLACTONE) 25 Mg Tablet, 25 MG PO DAILY24, TABLET 10/13/18 Pantoprazole Sodium (PANTOPRAZOLE SODIUM) 40 Mg Tablet.dr, 40 MG PO DAILY24 10/13/18 Allopurinol (ALLOPURINOL) 100 Mg Tablet, 100 MG PO BID, TABLET 10/13/18 Torsemide (TORSEMIDE) 20 Mg Tablet, 20 MG PO TID, TABLET 10/13/18 Potassium Chloride (POTASSIUM CHLORIDE) 20 Meq Tab.er.prt, 1 TAB PO BID, #180 TAB 3 Refills 10/13/18 Potassium Chloride (POTASSIUM CHLORIDE) 10 Meq Tab.er.prt, 10 MEQ PO BID 10/13/18 Umeclidinium Brm/Vilanterol Tr (Anoro Ellipta 62.5-25 Mcg INH) 1 Each Disk.w.dev, 1 EACH IH DAILY24 10/13/18 Albuterol Sulfate (PROAIR HFA) 8.5 Gm Hfa.aer.ad, 8.5 GM IH QID 10/13/18 Past Medical History Medical History: cardiac problems, COPD, diabetes, high cholesterol, hypertension, other Surgical History: stent, other Social History Smoking: non-smoker Alcohol Use: none Drug Use: none Review of Systems Constitutional: no symptoms reported EENTM: no symptoms reported Respiratory: no symptoms reported Cardiovascular: no symptoms reported Gastrointestinal: no symptoms reported Genitourinary: see HPI All Other Systems: Reviewed and Negative Physical Exam General Appearance: No Apparent Distress, WD/WN Neck: Non-Tender, Full Range of Motion, Supple, Normal Inspection Respiratory: chest non-tender, lungs clear, normal breath sounds, no respiratory distress CVS: reg rate & rhythm, no murmur, no gallop, pulses nml, nml capillary refill Gastrointestinal: Normal Bowel Sounds, No Organomegaly, No Pulsatile Mass, Non Tender Back: Normal Inspection Extremities: Normal Range of Motion 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 (01/24/19 11:55) Xr Chest 1v (01/24/19 11:55) Ekg-Routine (01/24/19 11:55) Lactic Acid(Rt) (01/24/19 11:55) Urinalysis (01/24/19 11:55) 0.9 % Sodium Chloride (Ns 1000ml) (01/24/19 11:55) 0.9 % Sodium Chloride (Ns 1000ml) (01/24/19 12:07) Urine Culture (01/24/19 13:13) Ceftriaxone Sodium (Rocephin) (01/24/19 13:53) Vital Signs Date Time Temp Pulse Resp B/P (MAP) Pulse Ox O2 Delivery O2 Flow Rate FiO2 01/24/19 11:53 98.4 77 18 98/59 (72) 95 Room Air 98.4 01/24/19 11:48 98.4 73 18 95 Room Air 98.4 01/24/19 11:48 98.4 77 18 98.4 Administered Medications Medications (Trade) Dose Ordered Sig/Debbie Route PRN Reason Start Time Stop Time Status Last Admin Dose Admin Sodium Chloride 1,000 ml @ 1,200 mls/hr Q50M STAT IV 01/24/19 11:55 01/24/19 12:44 DC 01/24/19 13:00 1,200 MLS/HR Laboratory Tests Test 01/24/19 11:55 01/24/19 12:05 01/24/19 13:13 Blood Gas Sample Site VBG Roland Test N/A Lactic Acid (Blood Gas) 1.8 mmol/1 (0.50-2.0) Prothrombin Time 12.8 SEC (9.8-11.9) H Prothrombin Time INR (Non-Therap) 1.3 PTT 34.6 SEC (24.67-30.72) Total Creatine Kinase 83 U/L (39-308) Troponin I < 0.02 ng/mL (0.00-0.05) Urine Collection Type VOID Urine Color STRAW (YELLOW) Urine Appearance CLOUDY (CLEAR) H Urine Bilirubin NEGATIVE MG/DL (NEGATIVE) Urine Ketones NEGATIVE (NEGATIVE) Urine Specific [place] 1.015 (1.005-1.035) Urine pH 6.5 (5.0-6.0) Urine Protein 30 mg/dL (NEGATIVE) H Urine Urobilinogen 1.0 (NEGATIVE) H Urine Nitrate NEGATIVE (NEGATAIVE) Urine Leukocyte Esterase 500/uL 2+ (NEGATIVE) Urine Blood 150 3+ (NEGATIVE) H Urine RBC 5-10 RBC/HPF (NONE SEEN) H Urine WBC TNTC WBC/HPF (0-2) H Urine Squamous Epithelial Cells RARE #/HPF (FEW) Urine Bacteria MODERATE (NONE SEEN) H Urine Glucose NORMAL (NEGATIVE) Progress Progress Daughter says her Dad is at his baseline and will like to go home with him. EKG/XRAY/CT/US EKG Comments: A fib XRAY: chest (No active disease) CT Comments: Nothing acute intracranially Departure Time of Disposition: 14:00 Disposition: 01 HOME, SELF-CARE Impression: Primary Impression: UTI (urinary tract infection) Qualified Codes: N39.0 - Urinary tract infection, site not specified; R31.9 - Hematuria, unspecified Condition: Stable Referrals: BARTOLO MAE MD (PCP) PRIMARY CARE PROVIDER Additional Instructions: Cipro F/U with PCP in 3-5 days Duration or Time Spent with Pa: 60 mins NAZ CHACON MD Jan 24, 2019 14:02
[2019-01-24] MEDS ORDERED: NS 100ML 100 ML IV ONE (14:06)
[2019-01-24] MEDS ORDERED: ROCEPHIN ONE (14:06)
[2019-01-24 15:11] VITALS: BP 98/59
== END 2019-01-24 14:50 | disposition home or self-care (01) ==
LOC: ER 11:31
DX: N39.0 Urinary tract infection, site not specified (principal); E11.9 Type 2 diabetes mellitus without complications; E78.00 Pure hypercholesterolemia, unspecified; I10 Essential (primary) hypertension; J44.9 Chronic obstructive pulmonary disease, unspecified; R79.1 Abnormal coagulation profile; Z79.899 Other long term (current) drug therapy; Z91.013 Allergy to seafood; Z91.018 Allergy to other foods
CPT/HCPCS: 36415; 71045; 81000; 82550; 83605; 84484; 85610; 85730; 87077; 87086; 87186; 93005; 96361; 96374; 99285; J0696; J7030; J7050 ×2; 96365

== ENCOUNTER → 2019-01-24 | Outpatient (CLI) | payer MEDICARE ==
[2019-01-24 11:09] LABS: BASOPHIL % 0.3 % (0.0-0.2); EOSINOPHIL % 0.4 % (0.0-5.0); HEMOGLOBIN 13.2 g/dL (13.9-16.3); LYMPHOCYTES # 0.7 10^3/uL (1.0-4.8); LYMPHOCYTES % 7.4 % (24.0-44.0); MEAN CELL HGB 28.6 pg (26-34); MEAN CELL HGB CONCENTRATION 33.3 g/dL (33-37); MEAN CORP VOLUME 85.7 fL (78-100); MEAN PLATELET VOLUME 8.6 fL (7.8-11.0); MONOCYTES # 0.8 10^3/uL (0.3-0.8); MONOCYTES % 8.4 % (5.0-12.0); NEUTROPHIL # 7.8 10^3/uL (1.8-7.7); NEUTROPHILS % 82.5 % (41.0-85.0); RED CELL DISTRIBUTION WIDTH 18.9 % (11.5-14.5); WHITE BLOOD CELL 9.5 10^3/uL (4.5-11.0)
[2019-01-24 11:34] LABS: CALCIUM 9.7 mg/dL (8.4-10.5); CARBON DIOXIDE 28.7 mmol/L (20.0-32)
--- NOTE | 2019-01-24 11:37 | DIREP ---
PROCEDURE:CT HEAD OR BRAIN W/O CONTRAST COMPARISON:None. INDICATIONS:R41.82 AMS TECHNIQUE:CT images were created without intravenous contrast. FINDINGS: VENTRICLES:The ventricles are normal in size and configuration for patient's age. CEREBRUM:Mild decreased attenuation is seen in the periventricular white matter bilaterally. CEREBELLUM:Negative. BRAINSTEM:Negative. BASAL CISTERNS:Negative. HEMORRHAGE:No MASS LESION:No ACUTE INFARCT:No SKULL:Normal. SINUSES:Normal. OTHER:None CONCLUSION:There are findings of mild decreased attenuation in the periventricular white matter bilaterally most consistent with mild chronic small vessel ischemic changes. No hemorrhage or acute infarct is seen. Dictated by: Rafy Washington M.D. on 01/24/2019 at 11:35 AM
== END | disposition home or self-care (01) ==
LOC: RAD 10:49
PROVIDERS: ATTEND Nurse Practitioner
DX: I67.82 Cerebral ischemia (principal); K80.20 Calculus of gallbladder without cholecystitis without obstruction; E11.9 Type 2 diabetes mellitus without complications; E03.9 Hypothyroidism, unspecified; K74.60 Unspecified cirrhosis of liver
CPT/HCPCS: 36415; 70450; 80053; 80061; 82150; 83036; 83690; 84439; 84443; 84480; 85025

== ENCOUNTER → 2019-01-28 | Outpatient (CLI) | payer MEDICARE ==
[2019-01-28 10:48] LABS: BILIRUBIN,URINE NEGATIVE (NEGATIVE); UROBILINOGEN,URINE NORMAL (NEGATIVE)
[2019-01-28 10:54] LABS: APPEARANCE,URINE CLEAR (CLEAR); UA COLOR YELLOW (YELLOW)
== END | disposition home or self-care (01) ==
LOC: LAB 10:35
PROVIDERS: ATTEND Internal Medicine
DX: N39.0 Urinary tract infection, site not specified (principal)
CPT/HCPCS: 81000; 87077; 87086; 87186

== ENCOUNTER 2019-06-22 09:57 | Inpatient (IN) | payer MEDICARE ==
[2019-06-22] VITALS (38 sets, daily range): BP systolic 83–133; BP diastolic 36–81
[~2019-06-22] VITALS: Ht 167.6 cm; Wt 82.2 kg
--- NOTE | 2019-06-22 10:02 | ER.PDOC ---
General Chief Complaint: Requesting Medical Care Stated Complaint: FALL Time seen by MD: 09:45 Source: patient, family Exam Limitations: other History of Present Illness Initial Comments patient fell last night, according to patient he fell last night and injured left arm causing skin tear. patient thinks he tripped over the furniture and fell but is not sure, no syncope no head injury that is know, left arm pain no lower extremity pain or back or abd pain or neck pain, son in law lives with him and states has dementia but may be slightly move confused over last two days. Where: home Severity: mild Injuries/Pain Location: upper extremity Context: Tripped Loss of Consciousness: No Loss of Consciousness Allergies: Coded Allergies: saffron (Verified Allergy, Mild, 06/04/18) shrimp (Verified Allergy, Mild, 06/04/18) MEDS Active Scripts Ciprofloxacin Hcl (CIPRO) 250 Mg Tablet, 500 MG PO BID for 5 Days, TABLET Prov:BARTOLO MAE MD 10/15/18 Reported Medications Rivaroxaban (XARELTO) 10 Mg Tablet, 2.5 MG PO BID, #10 TAB 10/13/18 Prednisone (PREDNISONE) 5 Mg Tab.ds.pk, 5 MG PO DAILY24 10/13/18 Cholestyramine (With Sugar) (CHOLESTYRAMINE POWDER) 378 Gm Powder, 378 GM PO PRN 10/13/18 Sucralfate (CARAFATE) 1 Gm/10 Ml Oral.susp, 10 MILLILITER PO BID, #120 MILLILITER 1 Refill 10/13/18 Levothyroxine Sodium (LEVOTHYROXINE SODIUM) 75 Mcg Tablet, 1 TAB PO DAILY, #30 TAB 5 Refills 10/13/18 Lovastatin (LOVASTATIN) 20 Mg Tablet, 20 MG PO DAILY24, TABLET 10/13/18 Metoprolol Tartrate 25MG (LOPRESSER 25MG) 25 Mg Tablet, 25 MG PO q12 for HYPERTENSION, #60 TAB 10/13/18 Clopidogrel Bisulfate (PLAVIX) 75 Mg Tablet, 75 MG PO DAILY24, TABLET 10/13/18 Spironolactone (SPIRONOLACTONE) 25 Mg Tablet, 25 MG PO DAILY24, TABLET 10/13/18 Pantoprazole Sodium (PANTOPRAZOLE SODIUM) 40 Mg Tablet.dr, 40 MG PO DAILY24 10/13/18 Allopurinol (ALLOPURINOL) 100 Mg Tablet, 100 MG PO BID, TABLET 10/13/18 Torsemide (TORSEMIDE) 20 Mg Tablet, 20 MG PO TID, TABLET 10/13/18 Potassium Chloride (POTASSIUM CHLORIDE) 20 Meq Tab.er.prt, 1 TAB PO BID, #180 TAB 3 Refills 10/13/18 Potassium Chloride (POTASSIUM CHLORIDE) 10 Meq Tab.er.prt, 10 MEQ PO BID 10/13/18 Umeclidinium Brm/Vilanterol Tr (Anoro Ellipta 62.5-25 Mcg INH) 1 Each Disk.w.dev, 1 EACH IH DAILY24 10/13/18 Albuterol Sulfate (PROAIR HFA) 8.5 Gm Hfa.aer.ad, 8.5 GM IH QID 10/13/18 Review of Systems Constitutional: denies chills, denies fever Ears, Nose, Mouth, Throat: denies nose discharge Respiratory: denies cough, denies shortness of breath Cardiovascular: denies chest pain, denies syncope Gastrointestinal: denies abdominal pain, denies diarrhea, denies vomiting Genitourinary: denies hematuria, denies pain Musculoskeletal: denies back pain, denies neck pain Skin: denies rash Psychiatric/Neurological: denies headache Physical Exam General Appearance: Other Eyes: bilateral eye normal inspection, bilateral eye PERRL, bilateral eye EOMI Ears, Nose, Mouth, Throat: No Evidence of ENT Injury Neck: Non-Tender Cardiovascular/Respiratory: Irregularly Irregular Gastrointestinal: Non Tender Back: Normal Inspection, No CVA Tenderness, No Vertebral Tenderness Extremities: Tenderness Neurologic/Psychiatric: claim benefit specialist II-XII NML as Tested, No Motor/Sensory Deficits, Alert Skin: Other Comments large skin tear on the lue. dressed and cleansed and irrigated in er today by nursing staff and antibiotic ointment and sterile dressing placed. [place] Coma Score Best Eye Response: (4) Open Spontaneously Best Verbal Response: (5) Oriented Best Motor Response: (6) Obeys Commands Results/Orders Results/Orders Orders - JOSE NORTON MD Cbc With Auto Diff (06/22/19 09:59) Comprehensive Metabolic Panel (06/22/19 09:59) Creatine Kinase (06/22/19 09:59) Creatine Kinase Mb (06/22/19 09:59) Troponin I (06/22/19 09:59) Probnp B-Type Pharmacist Aide (06/22/19 09:59) PT (06/22/19 09:59) Partial Thromboplastin Time. (06/22/19 09:59) Xr Chest 1v (06/22/19 09:59) Ekg-Routine (06/22/19 09:59) Saline Lock (06/22/19 09:59) Xr Humerus Lt (06/22/19 09:59) Xr Forearm Lt (06/22/19 09:59) Ct Head Wo Contrast (06/22/19 09:59) Ct Cervical Spine (06/22/19 09:59) Ammonia (06/22/19 10:01) Urinalysis (06/22/19 10:01) Tetanus-Diphtheria Toxoids/Pf (Tenivac S (06/22/19 10:30) Arterial Blood Gas (06/22/19 10:24) 0.9 % Sodium Chloride (Ns 1000ml) (06/22/19 10:30) 0.9 % Sodium Chloride (Ns 1000ml) (06/22/19 10:24) Blood Culture (06/22/19 10:26) Urine Culture (06/22/19 10:27) Diph,Pertuss(Acell),Tet Vac/Pf (Adacel V (06/22/19 11:00) 0.9 % Sodium Chloride (Ns 1000ml) (06/22/19 10:37) Diph,Pertuss(Acell),Tet Vac/Pf (Adacel V (06/22/19 10:37) Meropenem (Meropenem) (06/22/19 14:00) 0.9 % Sodium Chloride (Ns 1000ml) (06/22/19 13:00) 0.9 % Sodium Chloride (Ns 100ml) (06/22/19 12:39) Vital Signs Date Time Temp Pulse Resp B/P (MAP) Pulse Ox O2 Delivery O2 Flow Rate FiO2 06/22/19 12:31 62 16 119/77 (91) 95 Room Air 2.00 06/22/19 11:42 73 18 116/62 (80) 90 Room Air 06/22/19 10:21 20 06/22/19 10:20 97.5 67 20 124/50 (74) 90 Room Air 06/22/19 10:00 97.5 67 20 90 Room Air Administered Medications Medications (Trade) Dose Ordered Sig/Debbie Route PRN Reason Start Time Stop Time Status Last Admin Dose Admin Diphtheria/ Tetanus/Acell Pertussis (Adacel Vial) 0.5 ml ONCE ONCE IM 06/22/19 11:00 06/22/19 11:01 DC 06/22/19 11:04 0.5 ML Sodium Chloride 1,000 ml @ 0 mls/hr Q0M ONCE IV 06/22/19 10:30 06/22/19 10:31 DC 06/22/19 10:39 0 MLS/HR Laboratory Tests Test 06/22/19 10:15 06/22/19 11:16 06/22/19 11:39 White Blood Count 15.2 10^3/uL (4.5-11.0) H Red Blood Count 3.83 10^6/uL (4.50-5.90) L Hemoglobin 10.6 g/dL (13.9-16.3) L Hematocrit 33.1 % (37.0-53.0) L Mean Corpuscular Volume 86.4 fL (78-100) Mean Corpuscular Hemoglobin 27.7 pg (26-34) Mean Corpuscular Hemoglobin Concent 32.0 g/dL (33-37) L Red Cell Distribution Width 17.5 % (11.5-14.5) H Platelet Count 261 10^3/uL (150-400) Mean Platelet Volume 9.5 fL (7.8-11.0) Neutrophils (%) (Auto) 81.5 % (41.0-85.0) Lymphocytes (%) (Auto) 8.6 % (24.0-44.0) L Monocytes (%) (Auto) 7.7 % (5.0-12.0) Neutrophils # (Auto) 12.4 10^3/uL (1.8-7.7) H Lymphocytes # (Auto) 1.3 10^3/uL (1.0-4.8) Monocytes # (Auto) 1.2 10^3/uL (0.3-0.8) H Absolute Immature Granulocyte (auto 0.20 10^3 u/L (0-2) Immature Granulocytes % 1.30 % (0.00-0.50) H Eosinophils % 0.6 % (0.0-5.0) Basophils % 0.3 % (0.0-0.2) H Basophils # 0.0 10^3/uL (0.0-0.1) Eosinophil Count 0.1 10^3/uL (0.0-0.2) Prothrombin Time 13.6 SEC (9.4-11.5) H Prothrombin Time INR (Non-Therap) 1.3 Activated Partial Thromboplast Time 33.2 SEC (24.67-30.72) Sodium Level 131 mmol/L (132-145) L Potassium Level 5.2 mmol/L (3.6-5.2) Chloride Level 98.0 mmol/L (96-109) Carbon Dioxide Level 24.7 mmol/L (20.0-32) Anion Gap 13.5 Blood Urea Nitrogen 62 mg/dL (7-18) H Creatinine 2.01 mg/dL (0.59-1.40) *H Estimated GFR () 38.7 (>/=60) BUN/Creatinine Ratio 30.0 Glucose Level 158 mg/dL (70-110) H Calcium Level 8.9 mg/dL (8.4-10.5) Total Bilirubin 2.3 mg/dL (0.2-1.0) H Aspartate Amino Transferase (AST) 36 U/L (0-35) H Alanine Aminotransferase (ALT) 26 U/L (12-78) Alkaline Phosphatase 163 U/L (50-136) H Ammonia 18 umol/L (11-35) Total Creatine Kinase 443 U/L (39-308) H Creatine Kinase MB 3.0 ng/mL (0.5-3.6) Troponin I < 0.02 ng/mL (0.00-0.05) Pro-B-Type Natriuretic Peptide 2897 pg/mL (0-450) H Total Protein 7.1 g/dL (6.4-8.2) Albumin 3.5 g/dL (3.4-5.0) Globulin 3.6 Blood Gas Sample Site RB Blood pH 7.440 (7.350-7.450) Blood Gas PCO2 37.2 mmHg (35.0-45.0) Blood Gas PO2 56.0 mmHg (80.0-100.0) L Blood Gas HCO3 25.2 mmol/L (22.0-26.0) Blood Gas Base Excess 1.3 mmol/L (-2.0-2.0) Roland Test N/A Arterial Blood Oxygen Saturation 88.3 % (94.0-97.00) L Deoxyhemoglobin 11.6 % (0.0-5.0) H Carboxyhemoglobin 0.7 % (0.0-3.9) Methemoglobin 0.1 % (0.00-5.0) Total Hemoglobin 11.2 % (12.0-17.8) L Total Oxygen Concentration 13.8 % (13.5-17.5) Blood Gas Temperature 37 Oxygen Delivery Method NASAL CANNULA FiO2 28 % (20-101) Bicarbonate 26.4 mmol/L (23-27) Urine Collection Type CATH Urine Color YELLOW (YELLOW) Urine Appearance CLOUDY (CLEAR) H Urine Bilirubin NEGATIVE MG/DL (NEGATIVE) Urine Ketones NEGATIVE (NEGATIVE) Urine Specific [place] 1.010 (1.005-1.035) Urine pH 6 (5.0-6.0) Urine Protein 15 mg/dL (NEGATIVE) H Urine Urobilinogen NORMAL (NEGATIVE) Urine Nitrate POSITIVE (NEGATAIVE) Urine Leukocyte Esterase 500/uL 2+ (NEGATIVE) Urine Blood 150 3+ (NEGATIVE) H Urine RBC TNTC RBC/HPF (NONE SEEN) H Urine WBC TNTC WBC/HPF (0-2) H Urine Squamous Epithelial Cells RARE #/HPF (FEW) Urine Bacteria MANY (NONE SEEN) H Urine Glucose NORMAL (NEGATIVE) Progress Progress discussed case with dr rosado for admission Departure Time of Disposition: 12:39 Disposition: 09 ADMITTED INPATIENT Impression: Primary Impression: UTI (urinary tract infection) Additional Impressions: Acute renal failure Fall Skin tear Condition: Critical Duration or Time Spent with Pa: 15 Problem Qualifiers JOSE NORTON MD Jun 22, 2019 10:02
--- NOTE | 2019-06-22 10:12 | PCM.EKG ---
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[id number] Requested By: LUIS MANUEL LEMUS Order Number: [id number] Reading MD: Luis Manuel Lemus Measurements Intervals [place] Rate: 73 P: DC: QRS: 62 QRSD: 133 T: 255 QT: 430 QTc: 474 Interpretive Statements Atrial fibrillation Right bundle branch block Repol abnrm suggests ischemia, diffuse leads Compared to ECG 01/24/2019 12:10:23 Early repolarization now present T-wave abnormality no longer present Possible ischemia still present no acute finding same as previous ecg from 01-24-19 at 12:10 Electronically Signed On 06-22-2019 10:16:39 DOCK CLERK by Luis Manuel Lemus Please click the below link to view image of tracing.
[2019-06-22 10:21] LABS: BASOPHIL % 0.3 % (0.0-0.2); EOSINOPHIL # 0.1 10^3/uL (0.0-0.2); EOSINOPHIL % 0.6 % (0.0-5.0); HEMOGLOBIN 10.6 g/dL (13.9-16.3); LYMPHOCYTES # 1.3 10^3/uL (1.0-4.8); LYMPHOCYTES % 8.6 % (24.0-44.0); MEAN CELL HGB 27.7 pg (26-34); MEAN CORP VOLUME 86.4 fL (78-100); MEAN PLATELET VOLUME 9.5 fL (7.8-11.0); MONOCYTES # 1.2 10^3/uL (0.3-0.8); MONOCYTES % 7.7 % (5.0-12.0); NEUTROPHIL # 12.4 10^3/uL (1.8-7.7); NEUTROPHILS % 81.5 % (41.0-85.0); RED CELL DISTRIBUTION WIDTH 17.5 % (11.5-14.5); WHITE BLOOD CELL 15.2 10^3/uL (4.5-11.0)
[2019-06-22] MEDS ORDERED: NS 1000ML 1,000 ML IV ONE ×2 (10:24→10:30)
--- NOTE | 2019-06-22 10:24 | NUR ---
ARRIVAL PT ARRIVED TO ED VIA EMS. PT ALERT, CONFUSED AT TIME, POOR HISTORIAN. STATES HE FELL LAST NIGHT AT HIS HOUSE, UNSURE OF WHAT HE HIT WHEN HE FELL. DRESSING NOTED TO LEFT ARM WITH BLOOD SATURATION TO UPPER ARM THROUGH DRESSING. BLE DISCOLORED, DUSKY, COOL TO THE TOUCH. PEDAL PULSES VERY WEAK. SWELLING NOTED TO LEFT HAND. ABD AREA TIGHT, DISTENDED. PT'S DAUGHTER CALLED TO REPORT THAT PT HAS UNDIAGNOSED DEMENTIA AND GAVE MEDICAL HX OF PT. STATES THAT HE IS A HEAVY DRINKER AND HAS CIRRHOSIS OF THE LIVER, STATES THAT PT HAS HAD MULTIPLE FALLS THIS WEEK. WILL CONTINUE TO MONITOR PT.
--- NOTE | 2019-06-22 10:28 | NUR ---
DRESSING DRESSING TO LEFT ARM REMOVED BY DR. NORTON. SITE CLEANSED WITH NS, NEOSPORIN APPLIED ON NON-ADHEARANT DRESSING, WRAPPED WITH KERLEX AND COBAN.
[2019-06-22] MEDS ORDERED: TENIVAC SYRINGE IM ONE (10:30)
[2019-06-22] MEDS ORDERED: ADACEL VIAL IM ONE ×2 (10:37→11:00)
[2019-06-22] MEDS ORDERED: NS 1000ML 1,000 ML ONE ×2 (10:37→15:52)
[2019-06-22 10:47] LABS: ALANINE AMINOTRANSFERASE(ML) 26 U/L (12-78); ALKALINE PHOSPHATASE 163 U/L (50-136); ASPARTATE AMINO TRANSFERASE 36 U/L (0-35); CALCIUM 8.9 mg/dL (8.4-10.5); CARBON DIOXIDE 24.7 mmol/L (20.0-32); GLUCOSE 158 mg/dL (70-110)
--- NOTE | 2019-06-22 10:51 | DIREP ---
PROCEDURE:CT HEAD OR BRAIN W/O CONTRAST COMPARISON:[facility], CT, CT HEAD BRAIN W/O CONTRAST, 01/24/2019, 11:29 AM. INDICATIONS:fall with patient on blood thinners TECHNIQUE:CT images were created without intravenous contrast. FINDINGS: VENTRICLES: Generalized prominence of the ventricles and extra-axial CSF spaces, commensurate with generalized age-related parenchymal volume loss. CEREBRUM: Generalized age-related parenchymal volume loss. No apparent mass or mass effect. No acute intracranial hemorrhage or abnormal extra-axial fluid collections. Mild chronic small vessel ischemic demyelination. No CT evidence to suggest acute large vascular territorial ischemia. CEREBELLUM: Unremarkable for the patient's age. BRAINSTEM: Normal. SKULL: Normal. SINUSES: No significant paranasal sinus disease OTHER: Intracranial vascular calcifications. CONCLUSION: 1. Senescent changes with generalized age-related parenchymal volume loss and mild chronic small vessel ischemic demyelination. No acute intracranial abnormality is identified. Dictated by: Shaji Baez M.D. On 06/22/2019 at 10:46 AM
--- NOTE | 2019-06-22 11:00 | DIREP ---
PROCEDURE:XRAY FOREARM 2 VWS-LT COMPARISON:None. INDICATIONS:fall and pain FINDINGS: BONES:Normal. JOINTS:Normal. SOFT TISSUES:Atheromatous calcifications. Circumferential soft tissue swelling OTHER:No additional findings. CONCLUSION:No acute fracture/dislocation Dictated by: Shamar Jacques M.D. on 06/22/2019 at 10:57 AM
--- NOTE | 2019-06-22 11:03 | DIREP ---
PROCEDURE:XRAY HUMERUS MIN 2 VWS-LT COMPARISON:None. INDICATIONS:fall and pain FINDINGS: BONES:Normal. JOINTS:Normal. SOFT TISSUES:Mid diaphyseal soft tissue swelling. OTHER:No additional findings. CONCLUSION:No acute fracture/dislocation Dictated by: Shamar Jacques M.D. on 06/22/2019 at 11:01 AM
--- NOTE | 2019-06-22 11:12 | DIREP ---
PROCEDURE: CT SPINE CERVICAL W/O COMPARISON:None. INDICATIONS:fall and pain FINDINGS: ALIGNMENT:Straightening of the normal cervical lordosis may be positional. Vertebral body alignment is maintained. Facet joints are intact. VERTEBRAE:No compression deformity or acute fracture is identified. PARASPINAL AREA:Bilateral carotid artery calcifications. CERVICAL DISC LEVELS Moderate degenerative disc disease throughout the cervical spine with disc space narrowing and spondylosis. There are additional calcifications of the posterior longitudinal ligament within the cervical spine. Facet arthropathy throughout the cervical spine is most prominent within the lower cervical spine at C7-T1. There is at least mild spinal stenosis at C4-C5, asymmetric to the right. Suspect mild spinal stenosis at C5-C6 and C6-C7 as well. There is fairly high-grade bilateral neural foraminal encroachment throughout the cervical spine with relative sparing of the neural foramina at C2-C3. CONCLUSION: 1. No acute osseous abnormality or vertebral body malalignment. 2. Diffuse degenerative disc and spine disease with areas of suspected spinal stenosis and potentially clinically significant neural foraminal encroachment as discussed above. Dictated by: Shaji Baez M.D. On 06/22/2019 at 10:49 AM
--- NOTE | 2019-06-22 11:12 | DIREP ---
PROCEDURE:CHEST 1 VIEW COMPARISON:[facility], CR, XRAY CHEST SINGLE VW, 01/24/2019, 12:03 PM. INDICATIONS:fall FINDINGS: LUNGS/PLEURA:No significant pulmonary parenchymal abnormalities. No effusions. VASCULATURE:Normal. Unremarkable pulmonary vasculature. CARDIAC:Mild cardiomegaly. MEDIASTINUM:Atheromatous calcifications of the aorta BONES:Arthrosis of the left acromioclavicular joint OTHER:Negative. CONCLUSION:Mild cardiomegaly. No active cardiopulmonary disease process Dictated by: Shamar Jacques M.D. on 06/22/2019 at 11:02 AM
[2019-06-22 11:25] LABS: ABG PCO2 37.2 mmHg (35.0-45.0); BE(B) 1.3 mmol/L (-2.0-2.0); HCO3act 25.2 mmol/L (22.0-26.0)
[2019-06-22 11:44] LABS: BILIRUBIN,URINE NEGATIVE (NEGATIVE); UROBILINOGEN,URINE NORMAL (NEGATIVE)
[2019-06-22 11:58] LABS: APPEARANCE,URINE CLOUDY (CLEAR); UA COLOR YELLOW (YELLOW)
[2019-06-22] MEDS ORDERED: NS 100ML 100 ML IV ONE (12:39)
[2019-06-22] MEDS ORDERED: NS IV SCH (13:00)
[2019-06-22] MEDS ORDERED: MEROPENEM 500 MG in NS 100ML 100 ML IV SCH (14:00)
--- NOTE | 2019-06-22 14:04 | NUR ---
TRANSFER PT TRANSFERRED TO FLOOR VIA W/C. PT ALERT, VITALS STABLE. REPORT GIVEN TO OTTO VARNER.
--- NOTE | 2019-06-22 14:04 | NUR ---
ARRIVAL TO ICU/MEDSURG RM 307 VIA WHEELCHAIR TRANSFERRED TO BED, PLACED ON MINDRAY VS MONITORING, 2L/NC REPORT RECEIVED FROM Diya SIMON RN.
--- NOTE | 2019-06-22 14:20 | NUR ---
DR. RABAGO AT BEDSIDE PATIENT STATES THAT HE DOESN'T KNOW ANYTHING ABOUT HIS MEDICAL HISTORY. DR. RABAGO UPDATED ON INFORMATION RECEIVED FROM ED REPORT. DR. RABAGO NOTIFIED THAT 4 MEDICATIONS WERE UNABLE TO BE RECONCILED DUE TO Yeelion ERRORS.
[2019-06-22] MEDS ORDERED: DEXTROSE 50%-WATER SYRINGE IV PRN (15:30)
--- NOTE | 2019-06-22 15:34 | PCM.HP ---
History of Present Illness Reason for Visit: Mechanical fall History of Present Illness Patient is an 83 M PMH of Heart Failure, PVD stents BLE x 3, HTN, Afib (Xarelto), Cirrhosis (Alcoholic), Hyperuricemia, and DM 2 who presents following mechanical fall. Patient has abrasion of LUE. Patient had thorough imaging evaluation in ER and all negative for acute pathology. Patient found to have UTI and metabolic encephalopathy. Patient has Leukocytosis and elevated RR which qualifies patient for SIRS/sepsis. IVF, IV abx, and blood cx ordered. Patient ammonia level normal and Lactic Acid is below 2. Patient encephalopathic from UTI and mild dehydration. Patient is still Full CODE. I discussed with daughter who is MPOA. Daughter wants to remain full CODE currently and does not want to transfer to [place] currently. She is aware of his overall guarded prognosis and I have recommended DNR and Hospice to her. She will consider and we will speak again this evening. Labs, imaging reviewed. I will order CT abdomen to better evaluate liver/gallbladder and reason for hyperbilirubinemia. I discussed plan of care to patient and then MPOA (Daughter) over the phone and they verbalized agreement/understanding. We will not transfer patient and we will not do paracentesis unless indicated; however, daughter not likely to agree. Past Medical History Cardiac: AFIB, CAD, CHF, HTN, Hyperlipidemia, Other (PVD with stenting of BLE) Hepatobiliary: Cirrhosis Endocrine: Diabetes, Other (Hyperuricemia) Past Surgical History: Other (Stenting of BLE) Past Social History Smoke: Quit Alcohol: heavy (former ) Drugs: None Lives: with Family Travel Hx EBOLA RISK:Travel to/contact w: No Is pt experiencing any Ebola s: No Review of Systems Constitutional: No: Fever, Chills Eyes: No: Conjunctivae inflammation, Eyelid inflammation ENT: No: Nose discharge, Nose congestion Respiratory: No: Cough, Shortness of breath, SOB with excertion, Wheezing Cardiovascular: No: Chest Pain, Palpitations, Edema Gastrointestinal: No: Nausea, Vomiting, Abdominal Pain Genitourinary: Frequency; No Retention Musculoskeletal: arm pain; No: neck pain, back pain Skin: No: Rash, Lesions, Jaundice, Bruising Neurological: Weakness, Confusion; No: Numbness, Incoordination, Change in speech, Seizures Allergies: Coded Allergies: saffron (Verified Allergy, Mild, 06/04/18) shrimp (Verified Allergy, Mild, 06/04/18) Scheduled Albuterol Sulfate (Proair Hfa), 8.5 GM IH QID, (Reported) Allopurinol (Allopurinol), 100 MG PO BID, (Reported) Cholestyramine (With Sugar) (Cholestyramine Powder), 378 GM PO PRN, (Reported) Ciprofloxacin Hcl (Cipro), 500 MG PO BID Clopidogrel Bisulfate (Plavix), 75 MG PO DAILY24, (Reported) Levothyroxine Sodium (Levothyroxine Sodium), 1 TAB PO DAILY, (Reported) Lovastatin (Lovastatin), 20 MG PO DAILY24, (Reported) Metoprolol Tartrate 25MG ([place]er 25MG), 25 MG PO q12, (Reported) Pantoprazole Sodium (Pantoprazole Sodium), 40 MG PO DAILY24, (Reported) Potassium Chloride (Potassium Chloride), 10 MEQ PO BID, (Reported) Potassium Chloride (Potassium Chloride), 1 TAB PO BID, (Reported) Prednisone (Prednisone), 5 MG PO DAILY24, (Reported) Rivaroxaban (Xarelto), 2.5 MG PO BID, (Reported) Spironolactone (Spironolactone), 25 MG PO DAILY24, (Reported) Sucralfate (Carafate), 10 MILLILITER PO BID, (Reported) Torsemide (Torsemide), 20 MG PO TID, (Reported) Umeclidinium Brm/Vilanterol Tr (Anoro Ellipta 62.5-25 Mcg INH), 1 EACH IH DAILY24, (Reported) VTE VTE Risk Total Score: 2 VTE Risk Score VTE Risk: Score 0-1 = Low Risk (Aggressive mobilization; early ambulation; no VTE prophylaxis required) Score 2: Moderate Risk (Intermittent/Pneumatic Compression Device OR Lovenox/Heparin/Coumadin) Score 3-4: High Risk (Intermittent/Pneumatic Compression Device AND Lovenox/Heparin/Coumadin) Score > or =5: Highest Risk (Intermittent/Pneumatic Compression Device AND Lovenox/Heparin/Coumadin) VTE VTE Present on Admission: No Currently receiving anticoagul: No VTE Risk Total Score: 2 Exam Vital Signs Vital Signs Date Time Temp Pulse Resp B/P (MAP) Pulse Ox O2 Delivery O2 Flow Rate FiO2 06/22/19 14:33 Nasal Cannula 2.00 06/22/19 14:30 68 114/58 (76) 06/22/19 14:04 97.5 96 06/22/19 12:31 16 General Appearance: Alert, Cooperative, No acute distress HEENT: Atraumatic, PERRLA, EOMI, Mucous membr. moist/pink Respiratory: Clear to auscultation, Normal air movement Cardiovascular: Normal S1, Normal S2 Abdominal: Normal bowel sounds, Soft, Other (Abdominal distension) Extremities: Normal pulses, Other (abrasion/skin tear of LUE) Skin: No rash, Breakdown, Lesions Neuro: Normal speech, Strength at 5/5 X4 ext, Normal tone, Sensation intact, Cranial nerves 3-12 NL Psych/Mental Status: Mood NL, Other (alert, moderate cognitive decline. ) Assessment/Plan Assessment/Plan Assessment/Plan Patient is an 83 M PMH of Heart Failure, PVD stents BLE x 3, HTN, Afib (Xarelto), Cirrhosis (Alcoholic), Hyperuricemia, and DM 2 who presents following mechanical fall. Plan 1. UTI/Sepsis/Metabolic Encephalopathy: cont IVF, cont IVF abx. Blood cx pending. Keep MAP above 65. Monitor urine output. Patient has very guarded prognosis and I have recommended DNR and Hospice care. I discussed with KATHLEEN (Daughter). She will consider. 2. PVD: will continue Plavix 3. Afib: rate controlled, cont BB. Will find exact dosing of Xarelto and cont in AM. 4. Heart failure: holding Aldactone/Lasix 2/2 sepsis/EJ. We will be cautious with IVF after the 30ml/kg. 5. HTN: cont BB, holding diuretics 6. Cirrhosis: pending CT for further evaluation. Ammonia wnl. Patient does not have thrombocytopenia but INR mildly elevated. I discussed very guarded prognosis with patient. 7. Hyperbilirubinemia: patient denies pain. Pending CT for further evaluation. 8. Hyperuricemia: restart allopurinol in AM. 9. PPx: PPI, Xarelto 10. Elevated BNP: 2/2 EJ and hx of heart failure. No Cardiology consult currently. 11. DM: SSI to cover 12. EJ: 2/2 overdiuresis with heart failure/cirrhosis medications. Will hold and repeat CMP in AM. REYNA RABAGO MD Jun 22, 2019 15:34
[2019-06-22] MEDS ORDERED: PLAVIX PO SCH (16:00)
[2019-06-22] MEDS: HUMULIN R SQ SCH ×2 (17:30→21:00)
--- NOTE | 2019-06-22 17:37 | DIREP ---
PROCEDURE:CT ABDOMEN/PELVIS W/O CONTRAST COMPARISON:[facility], CT, CT ABD/PELVIS W/O, 10/13/2018, 10:36 PM. [facility], CT, CT ABD/PELVIS W/O, 11/16/2018, 10:38 AM. INDICATIONS:cirrhosis, ascites, elevated bili TECHNIQUE:Axial images were created through the abdomen and pelvis without intravenous contrast material. No oral contrast was administered. Sagittal and coronal reconstructions were performed from source images. FINDINGS: LUNG BASES:Cardiomegaly. Coronary artery calcifications are noted. LIVER:Nodular contour to the atrophic liver. There is recannulization of ligamentum the nose some. BILIARY:Normal. No visible dilatation or calcification. PANCREAS:Normal. No lesion, fluid collection, ductal dilatation, or atrophy. SPLEEN:Spleen is atrophic. There is trace amount free fluid surrounding spleen. ADRENALS:Normal. No mass or enlargement. URINARY TRACT:Normal. No focal lesions or hydronephrosis. AORTA/VASCULAR:There are aortic atherosclerotic calcifications present. No aneurysm. There is a focal protrudes of the anterior lateral aspect of the aorta that is unchanged from the prior exam that measures 1.3 x 0.7 cm and is heavily calcified. This may represent focal contained dissection versus calcified mural plaque thrombus. Right external iliac stent noted. RETROPERITONEUM:The previous identified extraperitoneal right-sided pelvic hematoma has nearly completely resolved with residual lentiform shaped opacity that is fluid density without gas and measures 5.5 x 1.8 cm in cross-section and 4.6 cm in craniocaudal extent. BOWEL/MESENTERY:Multiple loops of small bowel appear adhered to the anterior abdominal wall. There is no evidence of obstruction. Terminal ileum is unremarkable. Appendix is normal. Normal amounts of stool are seen within the colon. There are few scattered colonic diverticular without evidence of diverticulitis. Small amount of free fluid is seen in the lower right pericolic gutter. ABDOMINAL WALL:Normal. No mass or hernia. PELVIC ORGANS:Normal. No visible mass. Pelvic organs appropriate for patient age. BONES:Moderate degenerative changes of bilateral SI joints. Leave OTHER:Negative. CONCLUSION: 1. Cardiomegaly. Coronary artery calcifications are noted. 2. Atherosclerotic aortic vascular calcifications stable appearance of small focal calcified aortic ulcerative plaque versus focal dissection. 3. Nodular contour liver and trace ascites most likely order entry representative of cirrhosis. No splenomegaly. 4. Colonic diverticula without evidence of diverticulitis. Dictated by: Den Landis MD on 06/22/2019 at 05:13 PM
[2019-06-22] MEDS ORDERED: WATER ONE (17:43)
[2019-06-22] MEDS: NS 1000ML 1,000 ML IV SCH (18:00)
--- NOTE | 2019-06-22 18:50 | NUR ---
REPORT RECEIVED FROM OTTO HUGHES RN. ASSUMED PT CARE.
[2019-06-22] MEDS ORDERED: LOPRESSER ONE (20:43)
[2019-06-22] MEDS ORDERED: LIPITOR ONE (20:44)
[2019-06-22] MEDS ORDERED: PROTONIX PO ONE (20:44)
[2019-06-22] MEDS: PROTONIX PO SCH (20:51)
[2019-06-22] MEDS: MEROPENEM 1,000 MG in NS 100ML 100 ML IV SCH (20:51)
[2019-06-22] MEDS: LIPITOR PO SCH (20:51)
[2019-06-22] MEDS: LOPRESSER PO SCH (20:52)
--- NOTE | 2019-06-22 21:49 | NUR ---
TELEPHONE ORDER PER DR RABAGO TO INCREASE IVF TO INFUSE @ 75ML/HOUR. TELEPHONE ORDER RBAV.
--- NOTE | 2019-06-22 22:28 | NUR ---
BP -87/37, MAP - 61. DR RABAGO NOTIFIED. TELEPHONE ORDER TO ADMIN 500NS BOLUS OT NOW. TO [facility].
[2019-06-22] MEDS ORDERED: NS 500ML 500 ML IV ONE (23:30)
--- NOTE | 2019-06-22 23:30 | NUR ---
DR RABAGO AT BEDSIDE TO ASSESS PATIENT. NO NEW ORDERS.
--- NOTE | 2019-06-22 23:44 | NUR ---
SNACK: PT SEATED AT SIDE OF BED DRINKING JUICE AND EATING CRACKERS. WILL CONTINUE TO MONITOR.
[2019-06-23] VITALS (72 sets, daily range): BP systolic 73–176; BP diastolic 33–126
--- NOTE | 2019-06-23 00:20 | NUR ---
DRESSING DRESSING TO SKIN TEARS ON LEFT ARM SOAKED IN BLOOD. DRESSING REMOVED. APPLIED OPTIFOAM NON-ADHESIVE WOUND DRESSING, ABD PAD AND WRAPPED WITH KERLIX AND COBAND. DRESSING IS CDI. PT TOLERATED WELL.
--- NOTE | 2019-06-23 05:30 | NUR ---
SOILED LINEN AND GOWN. PT REFUSED BED LINEN CHANGE AND GOWN CHANGE SEVERAL TIMES.
[2019-06-23] MEDS ORDERED: SYNTHROID ONE (05:33)
[2019-06-23] MEDS: SYNTHROID PO SCH (06:10)
[2019-06-23 06:22] LABS: BASOPHIL % 0.1 % (0.0-0.2); EOSINOPHIL # 0.2 10^3/uL (0.0-0.2); EOSINOPHIL % 1.2 % (0.0-5.0); LYMPHOCYTES # 0.9 10^3/uL (1.0-4.8); LYMPHOCYTES % 6.4 % (24.0-44.0); MEAN CELL HGB 27.6 pg (26-34); MEAN CELL HGB CONCENTRATION 31.8 g/dL (33-37); MEAN CORP VOLUME 86.8 fL (78-100); MONOCYTES # 1.5 10^3/uL (0.3-0.8); MONOCYTES % 10.2 % (5.0-12.0); NEUTROPHIL # 11.8 10^3/uL (1.8-7.7); NEUTROPHILS % 80.8 % (41.0-85.0); RED CELL DISTRIBUTION WIDTH 17.3 % (11.5-14.5); WHITE BLOOD CELL 14.6 10^3/uL (4.5-11.0)
[2019-06-23 06:43] LABS: CALCIUM 8.2 mg/dL (8.4-10.5); CARBON DIOXIDE 25.5 mmol/L (20.0-32)
[2019-06-23 06:47] LABS: EOSINOPHIL 1 % (1-4); LYMPHOCYTE 8 % (25-36); MONOCYTE 11 % (3-9); SEGMENTED NEUTROPHILS 80 % (31-76)
[2019-06-23 06:48] LABS: NUCLEATED RED BLOOD CELLS 1 % (0-0)
--- NOTE | 2019-06-23 07:05 | NUR ---
REPORT TO BLAYNE LUGO RN. PT CARE RELINQUISHED.
[2019-06-23] MEDS: HUMULIN R SQ SCH ×4 (07:30→21:24)
--- NOTE | 2019-06-23 08:10 | PRM.PN ---
Subjective Subjective Date: Jun 23, 2019 Time: 07:30 Subjective Patient feels better. Labs reviewed and Hg dropping. Will not give Xarelto today. Patient MAP dropped overnight requiring 500cc bolus of NS. Patient vitals stable today. I have family meeting this AM with MPOA to discuss d/c herbie nning and advance directives. I have recommended Hospice care to patient/family. VTE VTE Risk Total Score: >5 VTE Risk Score VTE Risk: Score 0-1 = Low Risk (Aggressive mobilization; early ambulation; no VTE prophylaxis required) Score 2: Moderate Risk (Intermittent/Pneumatic Compression Device OR Lovenox/Heparin/Coumadin) Score 3-4: High Risk (Intermittent/Pneumatic Compression Device AND Lovenox/Heparin/Coumadin) Score > or =5: Highest Risk (Intermittent/Pneumatic Compression Device AND Lovenox/Heparin/Coumadin) Review of Systems Allergies: Coded Allergies: saffron (Verified Allergy, Mild, 06/04/18) shrimp (Verified Allergy, Mild, 06/04/18) Scheduled Albuterol Sulfate (Proair Hfa), 8.5 GM IH QID, (Reported) Allopurinol (Allopurinol), 100 MG PO BID, (Reported) Cholestyramine (With Sugar) (Cholestyramine Powder), 378 GM PO PRN, (Reported) Ciprofloxacin Hcl (Cipro), 500 MG PO BID Clopidogrel Bisulfate (Plavix), 75 MG PO DAILY24, (Reported) Levothyroxine Sodium (Levothyroxine Sodium), 1 TAB PO DAILY, (Reported) Lovastatin (Lovastatin), 20 MG PO DAILY24, (Reported) Metoprolol Tartrate 25MG (Lopresser 25MG), 25 MG PO q12, (Reported) Pantoprazole Sodium (Pantoprazole Sodium), 40 MG PO DAILY24, (Reported) Potassium Chloride (Potassium Chloride), 10 MEQ PO BID, (Reported) Potassium Chloride (Potassium Chloride), 1 TAB PO BID, (Reported) Prednisone (Prednisone), 5 MG PO DAILY24, (Reported) Rivaroxaban (Xarelto), 2.5 MG PO BID, (Reported) Spironolactone (Spironolactone), 25 MG PO DAILY24, (Reported) Sucralfate (Carafate), 10 MILLILITER PO BID, (Reported) Torsemide (Torsemide), 20 MG PO TID, (Reported) Umeclidinium Brm/Vilanterol Tr (Anoro Ellipta 62.5-25 Mcg INH), 1 EACH IH DAILY24, (Reported) Objective Vitals and I/O Vital Sign - Last 24 Hours 06/22/19 06/22/19 06/22/19 06/22/19 10:00 10:20 10:21 11:42 Temp 97.5 97.5 Pulse 67 67 73 Resp 20 20 20 18 B/P (MAP) 124/50 (74) 116/62 (80) Pulse Ox 90 90 90 O2 Delivery Room Air Room Air Room Air 06/22/19 06/22/19 06/22/19 06/22/19 12:31 14:04 14:15 14:30 Temp 97.5 Pulse 62 66 65 68 Resp 16 B/P (MAP) 119/77 (91) 106/56 (73) 124/70 (88) 114/58 (76) Pulse Ox 95 96 O2 Delivery Room Air O2 Flow Rate 2.00 06/22/19 06/22/19 06/22/19 06/22/19 14:33 16:34 16:45 17:00 Pulse 64 64 61 B/P (MAP) 114/65 (81) 111/56 (74) 111/57 (75) O2 Delivery Nasal Cannula O2 Flow Rate 2.00 06/22/19 06/22/19 06/22/19 06/22/19 17:15 17:30 17:45 18:01 Temp 98.2 Pulse 61 60 68 66 B/P (MAP) 97/66 (76) 104/73 (83) 109/46 (67) 131/58 (82) Pulse Ox 90 97 99 06/22/19 06/22/19 06/22/19 06/22/19 18:25 18:31 18:45 19:00 Temp 97.4 Pulse 71 69 66 B/P (MAP) 88/57 (67) 113/59 (77) 110/57 (74) 06/22/19 06/22/19 06/22/19 06/22/19 19:02 19:15 19:30 19:45 Pulse 71 69 70 61 Resp 18 B/P (MAP) 131/81 (98) 104/70 (81) 112/45 (67) 110/55 (73) 06/22/19 06/22/19 06/22/19 06/22/19 20:00 20:15 20:41 20:45 Pulse 67 68 66 84 Resp 18 B/P (MAP) 101/58 (72) 124/52 (76) 99/56 (70) 105/56 (72) Pulse Ox 93 98 100 06/22/19 06/22/19 06/22/19 06/22/19 20:52 21:00 21:13 21:15 Pulse 68 65 62 Resp 20 B/P (MAP) 105/56 119/50 (73) 89/62 (71) Pulse Ox 99 99 O2 Delivery Nasal Cannula O2 Flow Rate 2.00 06/22/19 06/22/19 06/22/19 06/22/19 21:30 21:45 22:01 22:15 Pulse 75 67 63 61 Resp 18 B/P (MAP) 104/66 (79) 105/51 (69) 117/51 (73) 87/50 (62) Pulse Ox 99 99 91 06/22/19 06/22/19 06/22/19 06/22/19 22:30 22:33 22:34 22:45 Pulse 63 65 67 70 B/P (MAP) 83/47 (59) 87/37 (54) 92/46 (61) 104/54 (71) Pulse Ox 98 100 99 06/22/19 06/22/19 06/22/19 06/22/19 23:01 23:15 23:30 23:46 Temp 98.0 Pulse 66 65 62 74 Resp 18 B/P (MAP) 133/66 (88) 102/36 (58) 101/58 (72) 105/59 (74) Pulse Ox 100 92 93 06/23/19 06/23/19 06/23/19 06/23/19 00:02 00:05 00:15 00:30 Pulse 71 69 66 Resp 18 B/P (MAP) 101/66 (78) 131/46 (74) 103/72 (82) Pulse Ox 90 O2 Delivery Nasal Cannula O2 Flow Rate 2.00 06/23/19 06/23/19 06/23/19 06/23/19 00:45 01:00 01:16 01:30 Pulse 66 66 67 67 Resp 16 B/P (MAP) 111/47 (68) 107/60 (76) 105/53 (70) 93/52 (66) Pulse Ox 97 99 89 06/23/19 06/23/19 06/23/19 06/23/19 01:48 02:00 02:15 02:30 Pulse 70 109 63 60 Resp 18 B/P (MAP) 94/51 (65) 94/50 (65) 108/62 (77) 103/48 (66) Pulse Ox 97 97 06/23/19 06/23/19 06/23/19 06/23/19 02:45 03:00 03:15 03:31 Pulse 64 72 67 67 Resp 16 B/P (MAP) 108/51 (70) 89/58 (68) 91/61 (71) 97/35 (55) Pulse Ox 98 95 99 93 06/23/19 06/23/19 06/23/19 06/23/19 03:46 04:00 04:08 04:15 Temp 97.5 Pulse 66 66 62 Resp 18 B/P (MAP) 93/41 (58) 105/58 (74) 100/50 (67) Pulse Ox 97 93 O2 Delivery Nasal Cannula O2 Flow Rate 2.00 06/23/19 06/23/19 06/23/19 06/23/19 04:31 04:56 05:01 05:15 Pulse 63 69 60 63 Resp 18 B/P (MAP) 93/38 (56) 116/75 (89) 99/51 (67) 110/49 (69) Pulse Ox 91 96 06/23/19 06/23/19 06/23/19 06/23/19 05:30 05:46 06:00 06:15 Pulse 58 70 64 63 B/P (MAP) 92/46 (61) 105/52 (69) 103/49 (67) 106/57 (73) Pulse Ox 78 100 06/23/19 06/23/19 06/23/19 06:30 06:45 07:00 Pulse 62 67 67 Resp 18 B/P (MAP) 114/56 (75) 109/57 (74) 99/50 (66) Pulse Ox 91 86 Intake and Output 06/22/19 06/22/19 06/23/19 15:00 23:00 07:00 Intake Total 1983 ml Output Total 250 ml 580 ml Balance -250 ml 1403 ml General: Alert, Cooperative, No acute distress HEENT: Atraumatic, PERRLA, EOMI, Mucous membr. moist/pink Neck: Supple, No JVD Lungs: Clear to auscultation, Normal air movement Heart: Normal S1, Normal S2 Abdomen: Normal bowel sounds, Soft, Other (Abdominal distension) Extremities: Normal pulses, Other (abrasion/skin tear of LUE) Skin: Other (xerosis bilaterally, venous stasis changes) Neuro: Normal speech, Strength at 5/5 X4 ext, Normal tone, Sensation intact, Cranial nerves 3-12 NL Psych/Mental Status: Mental status NL, Mood NL All Results(Lab/Rad) Laboratory Tests Test 06/22/19 10:15 06/22/19 11:16 06/22/19 11:39 06/22/19 16:25 White Blood Count 15.2 10^3/uL Red Blood Count 3.83 10^6/uL Hemoglobin 10.6 g/dL Hematocrit 33.1 % Mean Corpuscular Volume 86.4 fL Mean Corpuscular Hemoglobin 27.7 pg Mean Corpuscular Hemoglobin Concent 32.0 g/dL Red Cell Distribution Width 17.5 % Platelet Count 261 10^3/uL Mean Platelet Volume 9.5 fL Neutrophils (%) (Auto) 81.5 % Lymphocytes (%) (Auto) 8.6 % Monocytes (%) (Auto) 7.7 % Neutrophils # (Auto) 12.4 10^3/uL Lymphocytes # (Auto) 1.3 10^3/uL Monocytes # (Auto) 1.2 10^3/uL Absolute Immature Granulocyte (auto 0.20 10^3 u/L Immature Granulocytes % 1.30 % Eosinophils % 0.6 % Basophils % 0.3 % Basophils # 0.0 10^3/uL Eosinophil Count 0.1 10^3/uL Prothrombin Time 13.6 SEC Prothrombin Time INR (Non-Therap) 1.3 Activated Partial Thromboplast Time 33.2 SEC Sodium Level 131 mmol/L Potassium Level 5.2 mmol/L Chloride Level 98.0 mmol/L Carbon Dioxide Level 24.7 mmol/L Anion Gap 13.5 Blood Urea Nitrogen 62 mg/dL Creatinine 2.01 mg/dL Estimated GFR () 38.7 BUN/Creatinine Ratio 30.0 Glucose Level 158 mg/dL Calcium Level 8.9 mg/dL Total Bilirubin 2.3 mg/dL Aspartate Amino Transf (AST/SGOT) 36 U/L Alanine Aminotransferase (ALT/SGPT) 26 U/L Alkaline Phosphatase 163 U/L Ammonia 18 umol/L Total Creatine Kinase 443 U/L Creatine Kinase MB 3.0 ng/mL Troponin I < 0.02 ng/mL < 0.02 ng/mL Pro-B-Type Natriuretic Peptide 2897 pg/mL Total Protein 7.1 g/dL Albumin 3.5 g/dL Globulin 3.6 Blood Gas Sample Site RB Blood Gas pH 7.440 Blood Gas PCO2 37.2 mmHg Blood Gas PO2 56.0 mmHg Blood Gas HCO3 25.2 mmol/L Blood Gas Base Excess 1.3 mmol/L Roland Test N/A Arterial Blood Oxygen Saturation 88.3 % Deoxyhemoglobin 11.6 % Carboxyhemoglobin 0.7 % Methemoglobin 0.1 % Total Hemoglobin 11.2 % Total Oxygen Concentration 13.8 % Blood Gas Temperature 37 Oxygen Delivery Method (LAB) NASAL CANNULA FiO2 28 % Bicarbonate 26.4 mmol/L Urine Collection Type CATH Urine Color YELLOW Urine Appearance CLOUDY Urine Bilirubin NEGATIVE MG/DL Urine Ketones NEGATIVE Urine Specific [place] 1.010 Urine pH 6 Urine Protein 15 mg/dL Urine Urobilinogen NORMAL Urine Nitrate POSITIVE Urine Leukocyte Esterase 500/uL 2+ Urine Blood 150 3+ Urine RBC TNTC RBC/HPF Urine WBC TNTC WBC/HPF Urine Squamous Epithelial Cells RARE #/HPF Urine Bacteria MANY Urine Glucose NORMAL Test 06/22/19 20:42 06/22/19 22:04 06/23/19 06:08 06/23/19 06:29 Bedside Glucose 124 Troponin I < 0.02 ng/mL White Blood Count 14.6 10^3/uL Red Blood Count 3.26 10^6/uL Hemoglobin 9.0 g/dL Hematocrit 28.3 % Mean Corpuscular Volume 86.8 fL Mean Corpuscular Hemoglobin 27.6 pg Mean Corpuscular Hemoglobin Concent 31.8 g/dL Red Cell Distribution Width 17.3 % Platelet Count 252 10^3/uL Mean Platelet Volume 9.0 fL Neutrophils (%) (Auto) 80.8 % Lymphocytes (%) (Auto) 6.4 % Monocytes (%) (Auto) 10.2 % Neutrophils # (Auto) 11.8 10^3/uL Lymphocytes # (Auto) 0.9 10^3/uL Monocytes # (Auto) 1.5 10^3/uL Absolute Immature Granulocyte (auto 0.19 10^3 u/L Immature Granulocytes % 1.30 % Eosinophils % 1.2 % Basophils % 0.1 % Basophils # 0.0 10^3/uL Eosinophil Count 0.2 10^3/uL Prothrombin Time 12.7 SEC Prothrombin Time INR (Non-Therap) 1.2 Sodium Level 134 mmol/L Potassium Level 4.7 mmol/L Chloride Level 100.0 mmol/L Carbon Dioxide Level 25.5 mmol/L Anion Gap 13.2 Blood Urea Nitrogen 61 mg/dL Creatinine 2.11 mg/dL Estimated GFR () 36.6 BUN/Creatinine Ratio 28.0 Glucose Level 120 mg/dL Calcium Level 8.2 mg/dL Magnesium Level 2.9 mg/dL Total Bilirubin 1.8 mg/dL Aspartate Amino Transf (AST/SGOT) 32 U/L Alanine Aminotransferase (ALT/SGPT) 26 U/L Alkaline Phosphatase 146 U/L Total Protein 6.3 g/dL Albumin 3.2 g/dL Globulin 3.1 Differential Total Cells Counted 100 #CELLS Segmented Neutrophils 80 % Lymphocytes 8 % Monocytes 11 % Absolute Eosinophils (Manual) 1 % Nucleated Red Blood Cells 1 % Platelet Estimate ADEQUATE Platelet Morphology NORMAL Blood Morphology Comment NORMAL MORPHOLOGY Current Medications Medications (Trade) Dose Ordered Sig/Debbie Route PRN Reason Start Time Stop Time Status Last Admin Dose Admin Sodium Chloride 1,000 ml @ 0 mls/hr Q0M ONCE IV 06/22/19 10:30 06/22/19 10:31 DC 06/22/19 10:39 Sodium Chloride 1,000 ml @ 0 mls/hr Q0M ONCE IV 06/22/19 10:24 06/22/19 10:26 DC Diphtheria/ Tetanus/Acell Pertussis (Adacel Vial) 0.5 ml ONCE ONCE IM 06/22/19 11:00 06/22/19 11:01 DC 06/22/19 11:04 Sodium Chloride 1,000 ml @ ud STK-MED ONCE .ROUTE 06/22/19 10:37 06/22/19 10:39 DC Diphtheria/ Tetanus/Acell Pertussis (Adacel Vial) 0.5 ml STK-MED ONCE IM 06/22/19 10:37 06/22/19 10:40 DC Meropenem 500 mg/ Sodium Chloride 100 ml @ 200 mls/hr Q8 IV 06/22/19 14:00 06/22/19 15:17 DC 06/22/19 13:02 Sodium Chloride 2,098 ml @ 1,049 mls/hr OT IV 06/22/19 13:00 07/22/19 12:59 Sodium Chloride 100 ml @ ud STK-MED ONCE IV 06/22/19 12:39 06/22/19 12:41 DC Pantoprazole Sodium (Protonix) 40 mg DAILY PO 06/23/19 09:00 06/22/19 15:18 DC Sodium Chloride 1,000 ml @ 30 mls/hr Q24H IV 06/22/19 15:30 07/22/19 15:29 06/22/19 18:00 Meropenem 1000 mg/ Sodium Chloride 100 ml @ 200 mls/hr BID IV 06/22/19 21:00 07/22/19 13:59 06/22/19 20:51 Pantoprazole Sodium (Protonix) 40 mg BID PO 06/22/19 21:00 07/23/19 08:59 06/22/19 20:51 Insulin Human Regular (Humulin R) Give 30 minutes before meal ACHS SQ 06/22/19 17:30 07/22/19 17:29 Dextrose (Dextrose 50%-Water Syringe) 25 ml STAT PRN IV HYPOGLYCEMIA 06/22/19 15:30 07/22/19 15:29 Sodium Chloride 1,000 ml @ ud STK-MED ONCE .ROUTE 06/22/19 15:52 06/22/19 15:54 DC Clopidogrel Bisulfate (Plavix) 75 mg DAILY PO 06/22/19 16:00 07/22/19 15:59 Levothyroxine Sodium (Synthroid) 75 mcg ACB PO 06/23/19 06:30 07/23/19 06:29 06/23/19 06:10 Atorvastatin Calcium (Lipitor) 5 mg HS PO 06/22/19 21:00 07/22/19 20:59 06/22/19 20:51 Metoprolol Tartrate (Lopresser) 25 mg BID PO 06/22/19 21:00 07/22/19 20:59 06/22/19 20:52 Sterile Water (Water) 1,000 ml STK-MED ONCE .ROUTE 06/22/19 17:43 06/22/19 17:45 DC Metoprolol Tartrate (Lopresser) 25 mg STK-MED ONCE .ROUTE 06/22/19 20:43 06/22/19 20:45 DC Atorvastatin Calcium (Lipitor) 10 mg STK-MED ONCE .ROUTE 06/22/19 20:44 06/22/19 20:46 DC Pantoprazole Sodium (Protonix) 40 mg STK-MED ONCE PO 06/22/19 20:44 06/22/19 20:46 DC Sodium Chloride 500 ml @ 500 mls/hr Q1H ONCE IV 06/22/19 23:30 06/23/19 01:06 DC 06/22/19 23:30 Levothyroxine Sodium (Synthroid) 75 mcg STK-MED ONCE .ROUTE 06/23/19 05:33 06/23/19 05:35 DC Course Sepsis Screening Results: Posi: POSITIVE Sepsis Qualifier/Stage: SEPSIS RISK Duration or Total Time Spent w: 15 Vitals & review Data Vital Sign - Last 24 Hours 06/22/19 06/22/19 06/22/19 06/22/19 10:00 10:20 10:21 11:42 Temp 97.5 97.5 Pulse 67 67 73 Resp 20 20 20 18 B/P (MAP) 124/50 (74) 116/62 (80) Pulse Ox 90 90 90 O2 Delivery Room Air Room Air Room Air 06/22/19 06/22/19 06/22/19 06/22/19 12:31 14:04 14:15 14:30 Temp 97.5 Pulse 62 66 65 68 Resp 16 B/P (MAP) 119/77 (91) 106/56 (73) 124/70 (88) 114/58 (76) Pulse Ox 95 96 O2 Delivery Room Air O2 Flow Rate 2.00 06/22/19 06/22/19 06/22/19 06/22/19 14:33 16:34 16:45 17:00 Pulse 64 64 61 B/P (MAP) 114/65 (81) 111/56 (74) 111/57 (75) O2 Delivery Nasal Cannula O2 Flow Rate 2.00 06/22/19 06/22/19 06/22/19 06/22/19 17:15 17:30 17:45 18:01 Temp 98.2 Pulse 61 60 68 66 B/P (MAP) 97/66 (76) 104/73 (83) 109/46 (67) 131/58 (82) Pulse Ox 90 97 99 06/22/19 06/22/19 06/22/19 06/22/19 18:25 18:31 18:45 19:00 Temp 97.4 Pulse 71 69 66 B/P (MAP) 88/57 (67) 113/59 (77) 110/57 (74) 06/22/19 06/22/19 06/22/19 06/22/19 19:02 19:15 19:30 19:45 Pulse 71 69 70 61 Resp 18 B/P (MAP) 131/81 (98) 104/70 (81) 112/45 (67) 110/55 (73) 06/22/19 06/22/19 06/22/19 06/22/19 20:00 20:15 20:41 20:45 Pulse 67 68 66 84 Resp 18 B/P (MAP) 101/58 (72) 124/52 (76) 99/56 (70) 105/56 (72) Pulse Ox 93 98 100 06/22/19 06/22/19 06/22/19 06/22/19 20:52 21:00 21:13 21:15 Pulse 68 65 62 Resp 20 B/P (MAP) 105/56 119/50 (73) 89/62 (71) Pulse Ox 99 99 O2 Delivery Nasal Cannula O2 Flow Rate 2.00 06/22/19 06/22/19 06/22/19 06/22/19 21:30 21:45 22:01 22:15 Pulse 75 67 63 61 Resp 18 B/P (MAP) 104/66 (79) 105/51 (69) 117/51 (73) 87/50 (62) Pulse Ox 99 99 91 06/22/19 06/22/19 06/22/19 06/22/19 22:30 22:33 22:34 22:45 Pulse 63 65 67 70 B/P (MAP) 83/47 (59) 87/37 (54) 92/46 (61) 104/54 (71) Pulse Ox 98 100 99 06/22/19 06/22/19 06/22/19 06/22/19 23:01 23:15 23:30 23:46 Temp 98.0 Pulse 66 65 62 74 Resp 18 B/P (MAP) 133/66 (88) 102/36 (58) 101/58 (72) 105/59 (74) Pulse Ox 100 92 93 06/23/19 06/23/19 06/23/19 06/23/19 00:02 00:05 00:15 00:30 Pulse 71 69 66 Resp 18 B/P (MAP) 101/66 (78) 131/46 (74) 103/72 (82) Pulse Ox 90 O2 Delivery Nasal Cannula O2 Flow Rate 2.00 06/23/19 06/23/19 06/23/19 06/23/19 00:45 01:00 01:16 01:30 Pulse 66 66 67 67 Resp 16 B/P (MAP) 111/47 (68) 107/60 (76) 105/53 (70) 93/52 (66) Pulse Ox 97 99 89 06/23/19 06/23/19 06/23/19 06/23/19 01:48 02:00 02:15 02:30 Pulse 70 109 63 60 Resp 18 B/P (MAP) 94/51 (65) 94/50 (65) 108/62 (77) 103/48 (66) Pulse Ox 97 97 06/23/19 06/23/19 06/23/19 06/23/19 02:45 03:00 03:15 03:31 Pulse 64 72 67 67 Resp 16 B/P (MAP) 108/51 (70) 89/58 (68) 91/61 (71) 97/35 (55) Pulse Ox 98 95 99 93 06/23/19 06/23/19 06/23/19 06/23/19 03:46 04:00 04:08 04:15 Temp 97.5 Pulse 66 66 62 Resp 18 B/P (MAP) 93/41 (58) 105/58 (74) 100/50 (67) Pulse Ox 97 93 O2 Delivery Nasal Cannula O2 Flow Rate 2.00 06/23/19 06/23/19 06/23/19 06/23/19 04:31 04:56 05:01 05:15 Pulse 63 69 60 63 Resp 18 B/P (MAP) 93/38 (56) 116/75 (89) 99/51 (67) 110/49 (69) Pulse Ox 91 96 06/23/19 06/23/19 06/23/19 06/23/19 05:30 05:46 06:00 06:15 Pulse 58 70 64 63 B/P (MAP) 92/46 (61) 105/52 (69) 103/49 (67) 106/57 (73) Pulse Ox 78 100 06/23/19 06/23/19 06/23/19 06:30 06:45 07:00 Pulse 62 67 67 Resp 18 B/P (MAP) 114/56 (75) 109/57 (74) 99/50 (66) Pulse Ox 91 86 Intake and Output 06/22/19 06/22/19 06/23/19 15:00 23:00 07:00 Intake Total 1983 ml Output Total 250 ml 580 ml Balance -250 ml 1403 ml Laboratory Tests Test 06/22/19 10:15 06/22/19 11:16 06/22/19 11:39 06/22/19 16:25 White Blood Count 15.2 10^3/uL Red Blood Count 3.83 10^6/uL Hemoglobin 10.6 g/dL Hematocrit 33.1 % Mean Corpuscular Volume 86.4 fL Mean Corpuscular Hemoglobin 27.7 pg Mean Corpuscular Hemoglobin Concent 32.0 g/dL Red Cell Distribution Width 17.5 % Platelet Count 261 10^3/uL Mean Platelet Volume 9.5 fL Neutrophils (%) (Auto) 81.5 % Lymphocytes (%) (Auto) 8.6 % Monocytes (%) (Auto) 7.7 % Neutrophils # (Auto) 12.4 10^3/uL Lymphocytes # (Auto) 1.3 10^3/uL Monocytes # (Auto) 1.2 10^3/uL Absolute Immature Granulocyte (auto 0.20 10^3 u/L Immature Granulocytes % 1.30 % Eosinophils % 0.6 % Basophils % 0.3 % Basophils # 0.0 10^3/uL Eosinophil Count 0.1 10^3/uL Prothrombin Time 13.6 SEC Prothrombin Time INR (Non-Therap) 1.3 Activated Partial Thromboplast Time 33.2 SEC Sodium Level 131 mmol/L Potassium Level 5.2 mmol/L Chloride Level 98.0 mmol/L Carbon Dioxide Level 24.7 mmol/L Anion Gap 13.5 Blood Urea Nitrogen 62 mg/dL Creatinine 2.01 mg/dL Estimated GFR () 38.7 BUN/Creatinine Ratio 30.0 Glucose Level 158 mg/dL Calcium Level 8.9 mg/dL Total Bilirubin 2.3 mg/dL Aspartate Amino Transf (AST/SGOT) 36 U/L Alanine Aminotransferase (ALT/SGPT) 26 U/L Alkaline Phosphatase 163 U/L Ammonia 18 umol/L Total Creatine Kinase 443 U/L Creatine Kinase MB 3.0 ng/mL Troponin I < 0.02 ng/mL < 0.02 ng/mL Pro-B-Type Natriuretic Peptide 2897 pg/mL Total Protein 7.1 g/dL Albumin 3.5 g/dL Globulin 3.6 Blood Gas Sample Site RB Blood Gas pH 7.440 Blood Gas PCO2 37.2 mmHg Blood Gas PO2 56.0 mmHg Blood Gas HCO3 25.2 mmol/L Blood Gas Base Excess 1.3 mmol/L Roland Test N/A Arterial Blood Oxygen Saturation 88.3 % Deoxyhemoglobin 11.6 % Carboxyhemoglobin 0.7 % Methemoglobin 0.1 % Total Hemoglobin 11.2 % Total Oxygen Concentration 13.8 % Blood Gas Temperature 37 Oxygen Delivery Method (LAB) NASAL CANNULA FiO2 28 % Bicarbonate 26.4 mmol/L Urine Collection Type CATH Urine Color YELLOW Urine Appearance CLOUDY Urine Bilirubin NEGATIVE MG/DL Urine Ketones NEGATIVE Urine Specific [place] 1.010 Urine pH 6 Urine Protein 15 mg/dL Urine Urobilinogen NORMAL Urine Nitrate POSITIVE Urine Leukocyte Esterase 500/uL 2+ Urine Blood 150 3+ Urine RBC TNTC RBC/HPF Urine WBC TNTC WBC/HPF Urine Squamous Epithelial Cells RARE #/HPF Urine Bacteria MANY Urine Glucose NORMAL Test 06/22/19 20:42 06/22/19 22:04 06/23/19 06:08 06/23/19 06:29 Bedside Glucose 124 Troponin I < 0.02 ng/mL White Blood Count 14.6 10^3/uL Red Blood Count 3.26 10^6/uL Hemoglobin 9.0 g/dL Hematocrit 28.3 % Mean Corpuscular Volume 86.8 fL Mean Corpuscular Hemoglobin 27.6 pg Mean Corpuscular Hemoglobin Concent 31.8 g/dL Red Cell Distribution Width 17.3 % Platelet Count 252 10^3/uL Mean Platelet Volume 9.0 fL Neutrophils (%) (Auto) 80.8 % Lymphocytes (%) (Auto) 6.4 % Monocytes (%) (Auto) 10.2 % Neutrophils # (Auto) 11.8 10^3/uL Lymphocytes # (Auto) 0.9 10^3/uL Monocytes # (Auto) 1.5 10^3/uL Absolute Immature Granulocyte (auto 0.19 10^3 u/L Immature Granulocytes % 1.30 % Eosinophils % 1.2 % Basophils % 0.1 % Basophils # 0.0 10^3/uL Eosinophil Count 0.2 10^3/uL Prothrombin Time 12.7 SEC Prothrombin Time INR (Non-Therap) 1.2 Sodium Level 134 mmol/L Potassium Level 4.7 mmol/L Chloride Level 100.0 mmol/L Carbon Dioxide Level 25.5 mmol/L Anion Gap 13.2 Blood Urea Nitrogen 61 mg/dL Creatinine 2.11 mg/dL Estimated GFR () 36.6 BUN/Creatinine Ratio 28.0 Glucose Level 120 mg/dL Calcium Level 8.2 mg/dL Magnesium Level 2.9 mg/dL Total Bilirubin 1.8 mg/dL Aspartate Amino Transf (AST/SGOT) 32 U/L Alanine Aminotransferase (ALT/SGPT) 26 U/L Alkaline Phosphatase 146 U/L Total Protein 6.3 g/dL Albumin 3.2 g/dL Globulin 3.1 Differential Total Cells Counted 100 #CELLS Segmented Neutrophils 80 % Lymphocytes 8 % Monocytes 11 % Absolute Eosinophils (Manual) 1 % Nucleated Red Blood Cells 1 % Platelet Estimate ADEQUATE Platelet Morphology NORMAL Blood Morphology Comment NORMAL MORPHOLOGY Current Medications Medications (Trade) Dose Ordered Sig/Debbie PRN Reason Start Time Stop Time Status Last Admin Atorvastatin Calcium (Lipitor) 5 mg HS 06/22/19 21:00 07/22/19 20:59 06/22/19 20:51 Clopidogrel Bisulfate (Plavix) 75 mg DAILY 06/22/19 16:00 07/22/19 15:59 Dextrose (Dextrose 50%-Water Syringe) 25 ml STAT PRN HYPOGLYCEMIA 06/22/19 15:30 07/22/19 15:29 Insulin Human Regular (Humulin R) Give 30 minutes before meal ACHS 06/22/19 17:30 07/22/19 17:29 Levothyroxine Sodium (Synthroid) 75 mcg ACB 06/23/19 06:30 07/23/19 06:29 06/23/19 06:10 Meropenem 1000 mg/ Sodium Chloride 100 ml @ 200 mls/hr BID 06/22/19 21:00 07/22/19 13:59 06/22/19 20:51 Metoprolol Tartrate (Lopresser) 25 mg BID 06/22/19 21:00 07/22/19 20:59 06/22/19 20:52 Pantoprazole Sodium (Protonix) 40 mg BID 06/22/19 21:00 07/23/19 08:59 06/22/19 20:51 Sodium Chloride 1,000 ml @ 30 mls/hr Q24H 06/22/19 15:30 07/22/19 15:29 06/22/19 18:00 Sodium Chloride 2,098 ml @ 1,049 mls/hr OT 06/22/19 13:00 07/22/19 12:59 Sepsis Infection Criteria Pres: Documented Infection LEVEL 1 SEPSIS INFECTION CRITE: ABX Therapy, Urinary Tract Infection LEVEL 2-SIRS (LIST ALL THAT AP: [id number] Cardiovascular Evidence: Not Assessed or None Hematologic Evidence: None/Not assessed Hepatic Evidence: None/Not assessed Metabolic Evidence: None/Not assessed Neurological Evidence: None/Not assessed Respiratory Evidence: Need for O2 to keep>90% Renal Evidence: Creatinine Lvl>2.0 O2 Sat by Pulse Oximetry: 86 Oxygen Flow Rate: 2.00 Assessment/Plan Assessment/Plan Assessment/Plan 1. UTI/Sepsis/Metabolic Encephalopathy: cont IVF, cont IVF abx. Blood/Urine cx pending. Monitor urine output. Leukocytosis mildly improved. Encephalopathy much improved. Patient is likely Hospice candidate. Will discuss with family this AM. 2. PVD: will continue Plavix 3. Afib: rate currently controlled. Will continue BB as BP tolerates. Will hold Xarelto 2/2 drop in Hg. 4. Heart failure: holding oral diuretics. No further workup currently. Will await discussion with family regarding advance directives. We have increase IVF rate and will monitor patient tolerance. 5. HTN: cont BB, holding diuretics 6. Cirrhosis: CT reviewed. Discussed results with patient/MPOA. Family meeting this AM. 7. Hyperbilirubinemia: likely 2/2 hx of alcoholic cirrhosis. Bili decreasing overnight. Patient denies clinical symptoms. He is tolerating breakfast this AM. 8. Hyperuricemia: hold Allopurinol 9. PPx: PPI BID, (holding anticoagulation 2/2 drog in Hg.) 10. Elevated BNP: 2/2 EJ and hx of heart failure. No Cardiology consult currently. 11. DM: SSI to cover 12. EJ: 2/2 ATN and overdiuresis. Patient likely Hepatorenal syndrome from Cirrhosis. Gentle IVF hydration and hold diuretics if possible. 13. Anemia: drop in Hg from 10.6 to 9. Patient has no acute bleeding. Skin tear has been properly care for. Holding Xarelto, cont Plavix 2/2 hx of stents in BLE. Type and screen ordered and will repeat labs in afternoon. 14. Skin tear: following fall. Likely source of Hg drop. Dressing, wound care in place. ancient art curator consulted for further evaluation. REYNA RABAGO MD Jun 23, 2019 08:10
[2019-06-23] MEDS ORDERED: NS 1000ML 1,000 ML IV ONE (08:30)
[2019-06-23] MEDS ORDERED: PROTONIX PO SCH (09:00)
--- NOTE | 2019-06-23 09:30 | NUR ---
Status Pt standing atbedside using urinal with standby assistance. 200ml of cloudy yellow urine noted. Gown and linens changed. Repositioned pt in bed.
--- NOTE | 2019-06-23 09:38 | NUR ---
Dr. Melinda Delgadillo at bedside discussing plan of care with patient and daughter.
[2019-06-23] MEDS ORDERED: PROTONIX PO ONE ×2 (09:58→21:13)
[2019-06-23] MEDS ORDERED: LOPRESSER ONE ×2 (10:02→21:12)
[2019-06-23] MEDS: LOPRESSER PO SCH ×2 (10:05→21:21)
[2019-06-23] MEDS: PROTONIX PO SCH ×2 (10:05→21:21)
[2019-06-23] MEDS: MEROPENEM 1,000 MG in NS 100ML 100 ML IV SCH ×2 (10:09→21:08)
--- NOTE | 2019-06-23 10:49 | NUR ---
DISCHARGE PLAN ANA MARIA VISITED WITH DAUGHTER KEVIN MICHELLE ([facility]) REGARDING D/C PLAN AND GOAL. PATIENT LIVES AT HOME WITH HIS STEP SON WHO IS GONE MOST OF THE DAY AND THERE AT NIGHT. HE WAS PREVIOUSLY INDEPENDENT OF ADLS PRIOR TO THIS ADMISSION. HIS PCP IS DR MAE. HE DOES HAVE A WALKER AND OXYGEN CONCENTRATOR AND PORTABILITY IN PLACE. THE O2 IS SERVICE BY [employer]. HE HAS THE FINANCIAL ABILITY TO PAY FOR HIS MEDICATIONS. CM EDUCATED THE DAUGHTER ON CARE HOME FACILITY AND LTAC. AT THIS TIME CHOICE LETTER WAS SIGNED FOR [facility] IN [place]. CM SPOKE WITH MARY ANN @ [phone] [facility] REGARDING REFERRAL. CLINICALS FAXED TO [phone]. [facility] DOES PROVIDE D/C TRANSPORTATION BUT THEY NEED AT LEAST 24 HOUR NOTICE OF DISCHARGE. DISCHARGE GOAL IS FOR PATIENT TO DISCHARGE TO [facility]. CM WILL CONTINUE TO MONITOR NEEDS OF PT.
--- NOTE | 2019-06-23 12:30 | NUR ---
Midline dressing Dressing to right upper arm midline saturated with blood and oozing. Dressing changed using strict sterile technique. Double lumens flushed and good blood return noted. Will continue to monitor.
[2019-06-23] MEDS: NS 1000ML 1,000 ML IV SCH (15:00)
[2019-06-23] MEDS ORDERED: NS 1000ML 1,000 ML ONE (16:01)
[2019-06-23 16:07] LABS: BASOPHIL % 0.3 % (0.0-0.2); EOSINOPHIL # 0.2 10^3/uL (0.0-0.2); EOSINOPHIL % 1.5 % (0.0-5.0); HEMOGLOBIN 8.6 g/dL (13.9-16.3); LYMPHOCYTES # 1.1 10^3/uL (1.0-4.8); LYMPHOCYTES % 7.3 % (24.0-44.0); MEAN CELL HGB 27.4 pg (26-34); MEAN CELL HGB CONCENTRATION 31.6 g/dL (33-37); MEAN CORP VOLUME 86.6 fL (78-100); MEAN PLATELET VOLUME 8.6 fL (7.8-11.0); MONOCYTES # 1.2 10^3/uL (0.3-0.8); MONOCYTES % 8.1 % (5.0-12.0); NEUTROPHIL # 11.6 10^3/uL (1.8-7.7); NEUTROPHILS % 81.1 % (41.0-85.0); RED CELL DISTRIBUTION WIDTH 17.3 % (11.5-14.5); WHITE BLOOD CELL 14.4 10^3/uL (4.5-11.0)
[2019-06-23 16:26] LABS: CALCIUM 7.9 mg/dL (8.4-10.5); CARBON DIOXIDE 23.2 mmol/L (20.0-32)
[2019-06-23 17:18] LABS: BAND NEUTROPHILS 1 % (2-6); EOSINOPHIL 1 % (1-4); LYMPHOCYTE 8 % (25-36); MONOCYTE 7 % (3-9); SEGMENTED NEUTROPHILS 83 % (31-76)
--- NOTE | 2019-06-23 18:50 | NUR ---
REPORT RECEIVED FROM BLAYNE LUGO RN. ASSUMED PT CARE.
--- NOTE | 2019-06-23 19:30 | NUR ---
BOWEL MOVEMENT: PT PLACED IN WHEELCHAIR AND TRANSFERRED TO BATH ROOM. PT VOIDED AND HAD A MEDIUM SIZE FORMED BROWN BOWEL MOVEMENT. PT REQUESTED TO SIT IN CHAIR FOR A WHILE AFTERWARDS. CALL LIGHT AND TABLE WITHIN REACH. WILL CONTINUE TO MONITOR.
--- NOTE | 2019-06-23 20:50 | NUR ---
DR RABAGO AT BEDSIDE. ORDER GIVEN TO PT TO USE INCENTIVE SPIROMETER.PT GIVEN INCENTIVE SPIROMETER AND INSTRUCTED ON USE.
[2019-06-23] MEDS ORDERED: LIPITOR ONE (21:13)
[2019-06-23] MEDS ORDERED: HUMULIN R ONE (21:13)
[2019-06-23] MEDS: LIPITOR PO SCH (21:21)
[2019-06-23 22:32] LABS: BASOPHIL % 0.3 % (0.0-0.2); EOSINOPHIL # 0.3 10^3/uL (0.0-0.2); EOSINOPHIL % 1.8 % (0.0-5.0); HEMOGLOBIN 8.7 g/dL (13.9-16.3); LYMPHOCYTES # 1.1 10^3/uL (1.0-4.8); LYMPHOCYTES % 7.1 % (24.0-44.0); MEAN CELL HGB 27.7 pg (26-34); MEAN CORP VOLUME 86.6 fL (78-100); MEAN PLATELET VOLUME 8.5 fL (7.8-11.0); MONOCYTES # 1.4 10^3/uL (0.3-0.8); MONOCYTES % 9.3 % (5.0-12.0); NEUTROPHIL # 12.2 10^3/uL (1.8-7.7); RED CELL DISTRIBUTION WIDTH 17.3 % (11.5-14.5); WHITE BLOOD CELL 15.4 10^3/uL (4.5-11.0)
--- NOTE | 2019-06-23 23:05 | NUR ---
TELEPHONE ORDER PER DR RABAGO: STAT ABG AND LACTIC TELEPHONE ORDER RBAV.
--- NOTE | 2019-06-23 23:17 | NUR ---
RT AND LAB AT BEDSIDE FOR STAT ABG AND LACTIC ACID.
[2019-06-23 23:33] LABS: ABG PCO2 24.5 mmHg (35.0-45.0); ABG PH 7.503 (7.350-7.450); BE(B) -3.3 mmol/L (-2.0-2.0); HCO3act 18.8 mmol/L (22.0-26.0); pO2 109.6 mmHg (80.0-100.0)
--- NOTE | 2019-06-23 23:45 | NUR ---
RECLINER: PT REPORTED BEING UNCOMFORTABLE IN BED AND ASKED TO SIT UP. PT PLACED IN RECLINER. PT REPORTED FEELING BETTER. CALL LIGHT AND TABLE WITHIN REACH. WILL CONTINUE TO MONITOR.
[2019-06-23 23:52] LABS: EOSINOPHIL 2 % (1-4); LYMPHOCYTE 7 % (25-36); MONOCYTE 10 % (3-9); SEGMENTED NEUTROPHILS 81 % (31-76)
[2019-06-24] VITALS (87 sets, daily range): BP systolic 84–197; BP diastolic 34–114
--- NOTE | 2019-06-24 | NUR ---
DR RABAGO NOTIFIED OF ABG AND LACTIC ACID RESULTS. TELEPHONE ORDER PER DR RABAGO TO INCREASE IVF TO INFUSE AT 100ML/HR. TELEPHONE ORDER RBAV.
--- NOTE | 2019-06-24 03:40 | NUR ---
PT ASSISTED BACK TO BED. PT REQUESTED SNACK AND GIVEN BANANA. CALL LIGHT AND TABLE WITHIN REACH. BED IN LOW POSITION, LOCKED, HOB ELEVATED AND SIDE RAILS UP X2. CALL LIGHT WITHIN REACH.
[2019-06-24 05:28] LABS: BASOPHIL % 0.2 % (0.0-0.2); EOSINOPHIL # 0.2 10^3/uL (0.0-0.2); EOSINOPHIL % 1.5 % (0.0-5.0); HEMOGLOBIN 8.6 g/dL (13.9-16.3); LYMPHOCYTES # 1.1 10^3/uL (1.0-4.8); LYMPHOCYTES % 7.4 % (24.0-44.0); MEAN CELL HGB 27.3 pg (26-34); MEAN CELL HGB CONCENTRATION 31.4 g/dL (33-37); MEAN PLATELET VOLUME 9.2 fL (7.8-11.0); MONOCYTES # 1.4 10^3/uL (0.3-0.8); MONOCYTES % 9.8 % (5.0-12.0); NEUTROPHIL # 11.2 10^3/uL (1.8-7.7); NEUTROPHILS % 78.4 % (41.0-85.0); RED CELL DISTRIBUTION WIDTH 17.4 % (11.5-14.5); WHITE BLOOD CELL 14.3 10^3/uL (4.5-11.0)
[2019-06-24] MEDS ORDERED: SYNTHROID ONE (05:28)
[2019-06-24] MEDS ORDERED: NS 1000ML 1,000 ML ONE ×2 (05:28→14:02)
[2019-06-24 05:42] LABS: CALCIUM 7.9 mg/dL (8.4-10.5); CARBON DIOXIDE 21.3 mmol/L (20.0-32)
[2019-06-24] MEDS: NS 1000ML 1,000 ML IV SCH ×2 (05:49→14:10)
[2019-06-24] MEDS: SYNTHROID PO SCH (06:08)
--- NOTE | 2019-06-24 06:30 | NUR ---
DRESSING CHANGE TO LT UPPER ARM PERFORMED. ARM DRESSED IN POLYMEM, AND COVERED WITH ABD PAD AND WRAPPED WITH KERLIX AND COBAND. DRESSING IS CDI. PT TOLERATED PROCEDURE WELL.
--- NOTE | 2019-06-24 06:55 | NUR ---
REPORT TO BLAYNE LUGO RN. PT CARE RELINQUISHED.
--- NOTE | 2019-06-24 07:24 | PRM.PN ---
Subjective Subjective Date: Jun 24, 2019 Time: 06:55 Subjective Labs reviewed. ABG overnight shows alkalosis. Patient lungs remain clear, pending CXR reviewed. We will give 500ml bolus over 2 hours this AM. Patient blood cx returned positive x 1 yesterday. I have discussed transfer to higher acuity of care or DNR with Hospice/comfort care referral and KATHLEEN(daughter) not agreeable to either. No further acute issues. VTE VTE Risk Total Score: >5 VTE Risk Score VTE Risk: Score 0-1 = Low Risk (Aggressive mobilization; early ambulation; no VTE prophylaxis required) Score 2: Moderate Risk (Intermittent/Pneumatic Compression Device OR Lovenox/Heparin/Coumadin) Score 3-4: High Risk (Intermittent/Pneumatic Compression Device AND Lovenox/Heparin/Coumadin) Score > or =5: Highest Risk (Intermittent/Pneumatic Compression Device AND Lovenox/Heparin/Coumadin) Review of Systems Allergies: Coded Allergies: saffron (Verified Allergy, Mild, 06/04/18) shrimp (Verified Allergy, Mild, 06/04/18) Scheduled Albuterol Sulfate (Proair Hfa), 8.5 GM IH QID, (Reported) Allopurinol (Allopurinol), 100 MG PO BID, (Reported) Cholestyramine (With Sugar) (Cholestyramine Powder), 378 GM PO PRN, (Reported) Ciprofloxacin Hcl (Cipro), 500 MG PO BID Clopidogrel Bisulfate (Plavix), 75 MG PO DAILY24, (Reported) Levothyroxine Sodium (Levothyroxine Sodium), 1 TAB PO DAILY, (Reported) Lovastatin (Lovastatin), 20 MG PO DAILY24, (Reported) Metoprolol Tartrate 25MG (Lopresser 25MG), 25 MG PO q12, (Reported) Pantoprazole Sodium (Pantoprazole Sodium), 40 MG PO DAILY24, (Reported) Potassium Chloride (Potassium Chloride), 10 MEQ PO BID, (Reported) Potassium Chloride (Potassium Chloride), 1 TAB PO BID, (Reported) Prednisone (Prednisone), 5 MG PO DAILY24, (Reported) Rivaroxaban (Xarelto), 2.5 MG PO BID, (Reported) Spironolactone (Spironolactone), 25 MG PO DAILY24, (Reported) Sucralfate (Carafate), 10 MILLILITER PO BID, (Reported) Torsemide (Torsemide), 20 MG PO TID, (Reported) Umeclidinium Brm/Vilanterol Tr (Anoro Ellipta 62.5-25 Mcg INH), 1 EACH IH DAILY24, (Reported) Objective Vitals and I/O Vital Sign - Last 24 Hours 06/22/19 06/22/19 06/22/19 06/22/19 10:00 10:20 10:21 11:42 Temp 97.5 97.5 Pulse 67 67 73 Resp 20 20 20 18 B/P (MAP) 124/50 (74) 116/62 (80) Pulse Ox 90 90 90 O2 Delivery Room Air Room Air Room Air 06/22/19 06/22/19 06/22/19 06/22/19 12:31 14:04 14:15 14:30 Temp 97.5 Pulse 62 66 65 68 Resp 16 B/P (MAP) 119/77 (91) 106/56 (73) 124/70 (88) 114/58 (76) Pulse Ox 95 96 O2 Delivery Room Air O2 Flow Rate 2.00 06/22/19 06/22/19 06/22/19 06/22/19 14:33 16:34 16:45 17:00 Pulse 64 64 61 B/P (MAP) 114/65 (81) 111/56 (74) 111/57 (75) O2 Delivery Nasal Cannula O2 Flow Rate 2.00 06/22/19 06/22/19 06/22/19 06/22/19 17:15 17:30 17:45 18:01 Temp 98.2 Pulse 61 60 68 66 B/P (MAP) 97/66 (76) 104/73 (83) 109/46 (67) 131/58 (82) Pulse Ox 90 97 99 06/22/19 06/22/19 06/22/19 06/22/19 18:25 18:31 18:45 19:00 Temp 97.4 Pulse 71 69 66 B/P (MAP) 88/57 (67) 113/59 (77) 110/57 (74) 06/22/19 06/22/19 06/22/19 06/22/19 19:02 19:15 19:30 19:45 Pulse 71 69 70 61 Resp 18 B/P (MAP) 131/81 (98) 104/70 (81) 112/45 (67) 110/55 (73) 06/22/19 06/22/19 06/22/19 06/22/19 20:00 20:15 20:41 20:45 Pulse 67 68 66 84 Resp 18 B/P (MAP) 101/58 (72) 124/52 (76) 99/56 (70) 105/56 (72) Pulse Ox 93 98 100 06/22/19 06/22/19 06/22/19 06/22/19 20:52 21:00 21:13 21:15 Pulse 68 65 62 Resp 20 B/P (MAP) 105/56 119/50 (73) 89/62 (71) Pulse Ox 99 99 O2 Delivery Nasal Cannula O2 Flow Rate 2.00 06/22/19 06/22/19 06/22/19 06/22/19 21:30 21:45 22:01 22:15 Pulse 75 67 63 61 Resp 18 B/P (MAP) 104/66 (79) 105/51 (69) 117/51 (73) 87/50 (62) Pulse Ox 99 99 91 06/22/19 06/22/19 06/22/19 06/22/19 22:30 22:33 22:34 22:45 Pulse 63 65 67 70 B/P (MAP) 83/47 (59) 87/37 (54) 92/46 (61) 104/54 (71) Pulse Ox 98 100 99 06/22/19 06/22/19 06/22/19 06/22/19 23:01 23:15 23:30 23:46 Temp 98.0 Pulse 66 65 62 74 Resp 18 B/P (MAP) 133/66 (88) 102/36 (58) 101/58 (72) 105/59 (74) Pulse Ox 100 92 93 06/23/19 06/23/19 06/23/19 06/23/19 00:02 00:05 00:15 00:30 Pulse 71 69 66 Resp 18 B/P (MAP) 101/66 (78) 131/46 (74) 103/72 (82) Pulse Ox 90 O2 Delivery Nasal Cannula O2 Flow Rate 2.00 06/23/19 06/23/19 06/23/19 06/23/19 00:45 01:00 01:16 01:30 Pulse 66 66 67 67 Resp 16 B/P (MAP) 111/47 (68) 107/60 (76) 105/53 (70) 93/52 (66) Pulse Ox 97 99 89 06/23/19 06/23/19 06/23/19 06/23/19 01:48 02:00 02:15 02:30 Pulse 70 109 63 60 Resp 18 B/P (MAP) 94/51 (65) 94/50 (65) 108/62 (77) 103/48 (66) Pulse Ox 97 97 06/23/19 06/23/19 06/23/19 06/23/19 02:45 03:00 03:15 03:31 Pulse 64 72 67 67 Resp 16 B/P (MAP) 108/51 (70) 89/58 (68) 91/61 (71) 97/35 (55) Pulse Ox 98 95 99 93 06/23/19 06/23/19 06/23/19 06/23/19 03:46 04:00 04:08 04:15 Temp 97.5 Pulse 66 66 62 Resp 18 B/P (MAP) 93/41 (58) 105/58 (74) 100/50 (67) Pulse Ox 97 93 O2 Delivery Nasal Cannula O2 Flow Rate 2.00 06/23/19 06/23/19 06/23/19 06/23/19 04:31 04:56 05:01 05:15 Pulse 63 69 60 63 Resp 18 B/P (MAP) 93/38 (56) 116/75 (89) 99/51 (67) 110/49 (69) Pulse Ox 91 96 06/23/19 06/23/19 06/23/19 06/23/19 05:30 05:46 06:00 06:15 Pulse 58 70 64 63 B/P (MAP) 92/46 (61) 105/52 (69) 103/49 (67) 106/57 (73) Pulse Ox 78 100 06/23/19 06/23/19 06/23/19 06:30 06:45 07:00 Pulse 62 67 67 Resp 18 B/P (MAP) 114/56 (75) 109/57 (74) 99/50 (66) Pulse Ox 91 86 Intake and Output 06/22/19 06/22/19 06/23/19 15:00 23:00 07:00 Intake Total 1983 ml Output Total 250 ml 580 ml Balance -250 ml 1403 ml General: Alert, Cooperative, No acute distress HEENT: Atraumatic, PERRLA, EOMI, Mucous membr. moist/pink, Other (Upper airway congestion) Neck: Supple, No JVD Lungs: Clear to auscultation, Normal air movement Heart: Normal S1, Normal S2 Abdomen: Normal bowel sounds, Soft, Other (Abdominal distension) Extremities: Normal pulses, Other (abrasion/skin tear of LUE) Skin: Other (xerosis bilaterally, venous stasis changes) Neuro: Normal speech, Strength at 5/5 X4 ext, Normal tone, Sensation intact, Cranial nerves 3-12 NL Psych/Mental Status: Mental status NL, Mood NL All Results(Lab/Rad) Laboratory Tests Test 06/22/19 10:15 06/22/19 11:16 06/22/19 11:39 06/22/19 16:25 White Blood Count 15.2 10^3/uL Red Blood Count 3.83 10^6/uL Hemoglobin 10.6 g/dL Hematocrit 33.1 % Mean Corpuscular Volume 86.4 fL Mean Corpuscular Hemoglobin 27.7 pg Mean Corpuscular Hemoglobin Concent 32.0 g/dL Red Cell Distribution Width 17.5 % Platelet Count 261 10^3/uL Mean Platelet Volume 9.5 fL Neutrophils (%) (Auto) 81.5 % Lymphocytes (%) (Auto) 8.6 % Monocytes (%) (Auto) 7.7 % Neutrophils # (Auto) 12.4 10^3/uL Lymphocytes # (Auto) 1.3 10^3/uL Monocytes # (Auto) 1.2 10^3/uL Absolute Immature Granulocyte (auto 0.20 10^3 u/L Immature Granulocytes % 1.30 % Eosinophils % 0.6 % Basophils % 0.3 % Basophils # 0.0 10^3/uL Eosinophil Count 0.1 10^3/uL Prothrombin Time 13.6 SEC Prothrombin Time INR (Non-Therap) 1.3 Activated Partial Thromboplast Time 33.2 SEC Sodium Level 131 mmol/L Potassium Level 5.2 mmol/L Chloride Level 98.0 mmol/L Carbon Dioxide Level 24.7 mmol/L Anion Gap 13.5 Blood Urea Nitrogen 62 mg/dL Creatinine 2.01 mg/dL Estimated GFR () 38.7 BUN/Creatinine Ratio 30.0 Glucose Level 158 mg/dL Calcium Level 8.9 mg/dL Total Bilirubin 2.3 mg/dL Aspartate Amino Transf (AST/SGOT) 36 U/L Alanine Aminotransferase (ALT/SGPT) 26 U/L Alkaline Phosphatase 163 U/L Ammonia 18 umol/L Total Creatine Kinase 443 U/L Creatine Kinase MB 3.0 ng/mL Troponin I < 0.02 ng/mL < 0.02 ng/mL Pro-B-Type Natriuretic Peptide 2897 pg/mL Total Protein 7.1 g/dL Albumin 3.5 g/dL Globulin 3.6 Blood Gas Sample Site RB Blood Gas pH 7.440 Blood Gas PCO2 37.2 mmHg Blood Gas PO2 56.0 mmHg Blood Gas HCO3 25.2 mmol/L Blood Gas Base Excess 1.3 mmol/L Roland Test N/A Arterial Blood Oxygen Saturation 88.3 % Deoxyhemoglobin 11.6 % Carboxyhemoglobin 0.7 % Methemoglobin 0.1 % Total Hemoglobin 11.2 % Total Oxygen Concentration 13.8 % Blood Gas Temperature 37 Oxygen Delivery Method (LAB) NASAL CANNULA FiO2 28 % Bicarbonate 26.4 mmol/L Urine Collection Type CATH Urine Color YELLOW Urine Appearance CLOUDY Urine Bilirubin NEGATIVE MG/DL Urine Ketones NEGATIVE Urine Specific [place] 1.010 Urine pH 6 Urine Protein 15 mg/dL Urine Urobilinogen NORMAL Urine Nitrate POSITIVE Urine Leukocyte Esterase 500/uL 2+ Urine Blood 150 3+ Urine RBC TNTC RBC/HPF Urine WBC TNTC WBC/HPF Urine Squamous Epithelial Cells RARE #/HPF Urine Bacteria MANY Urine Glucose NORMAL Test 06/22/19 20:42 06/22/19 22:04 06/23/19 06:08 06/23/19 06:29 Bedside Glucose 124 Troponin I < 0.02 ng/mL White Blood Count 14.6 10^3/uL Red Blood Count 3.26 10^6/uL Hemoglobin 9.0 g/dL Hematocrit 28.3 % Mean Corpuscular Volume 86.8 fL Mean Corpuscular Hemoglobin 27.6 pg Mean Corpuscular Hemoglobin Concent 31.8 g/dL Red Cell Distribution Width 17.3 % Platelet Count 252 10^3/uL Mean Platelet Volume 9.0 fL Neutrophils (%) (Auto) 80.8 % Lymphocytes (%) (Auto) 6.4 % Monocytes (%) (Auto) 10.2 % Neutrophils # (Auto) 11.8 10^3/uL Lymphocytes # (Auto) 0.9 10^3/uL Monocytes # (Auto) 1.5 10^3/uL Absolute Immature Granulocyte (auto 0.19 10^3 u/L Immature Granulocytes % 1.30 % Eosinophils % 1.2 % Basophils % 0.1 % Basophils # 0.0 10^3/uL Eosinophil Count 0.2 10^3/uL Prothrombin Time 12.7 SEC Prothrombin Time INR (Non-Therap) 1.2 Sodium Level 134 mmol/L Potassium Level 4.7 mmol/L Chloride Level 100.0 mmol/L Carbon Dioxide Level 25.5 mmol/L Anion Gap 13.2 Blood Urea Nitrogen 61 mg/dL Creatinine 2.11 mg/dL Estimated GFR () 36.6 BUN/Creatinine Ratio 28.0 Glucose Level 120 mg/dL Calcium Level 8.2 mg/dL Magnesium Level 2.9 mg/dL Total Bilirubin 1.8 mg/dL Aspartate Amino Transf (AST/SGOT) 32 U/L Alanine Aminotransferase (ALT/SGPT) 26 U/L Alkaline Phosphatase 146 U/L Total Protein 6.3 g/dL Albumin 3.2 g/dL Globulin 3.1 Differential Total Cells Counted 100 #CELLS Segmented Neutrophils 80 % Lymphocytes 8 % Monocytes 11 % Absolute Eosinophils (Manual) 1 % Nucleated Red Blood Cells 1 % Platelet Estimate ADEQUATE Platelet Morphology NORMAL Blood Morphology Comment NORMAL MORPHOLOGY Current Medications Medications (Trade) Dose Ordered Sig/Debbie Route PRN Reason Start Time Stop Time Status Last Admin Dose Admin Sodium Chloride 1,000 ml @ 0 mls/hr Q0M ONCE IV 06/22/19 10:30 06/22/19 10:31 DC 06/22/19 10:39 Sodium Chloride 1,000 ml @ 0 mls/hr Q0M ONCE IV 06/22/19 10:24 06/22/19 10:26 DC Diphtheria/ Tetanus/Acell Pertussis (Adacel Vial) 0.5 ml ONCE ONCE IM 06/22/19 11:00 06/22/19 11:01 DC 06/22/19 11:04 Sodium Chloride 1,000 ml @ ud STK-MED ONCE .ROUTE 06/22/19 10:37 06/22/19 10:39 DC Diphtheria/ Tetanus/Acell Pertussis (Adacel Vial) 0.5 ml STK-MED ONCE IM 06/22/19 10:37 06/22/19 10:40 DC Meropenem 500 mg/ Sodium Chloride 100 ml @ 200 mls/hr Q8 IV 06/22/19 14:00 06/22/19 15:17 DC 06/22/19 13:02 Sodium Chloride 2,098 ml @ 1,049 mls/hr OT IV 06/22/19 13:00 07/22/19 12:59 Sodium Chloride 100 ml @ STK-MED ONCE IV 06/22/19 12:39 06/22/19 12:41 DC Pantoprazole Sodium (Protonix) 40 mg DAILY PO 06/23/19 09:00 06/22/19 15:18 DC Sodium Chloride 1,000 ml @ 30 mls/hr Q24H IV 06/22/19 15:30 07/22/19 15:29 06/22/19 18:00 Meropenem 1000 mg/ Sodium Chloride 100 ml @ 200 mls/hr BID IV 06/22/19 21:00 07/22/19 13:59 06/22/19 20:51 Pantoprazole Sodium (Protonix) 40 mg BID PO 06/22/19 21:00 07/23/19 08:59 06/22/19 20:51 Insulin Human Regular (Humulin R) Give 30 minutes before meal ACHS SQ 06/22/19 17:30 07/22/19 17:29 Dextrose (Dextrose 50%-Water Syringe) 25 ml STAT PRN IV HYPOGLYCEMIA 06/22/19 15:30 07/22/19 15:29 Sodium Chloride 1,000 ml @ STK-MED ONCE .ROUTE 06/22/19 15:52 06/22/19 15:54 DC Clopidogrel Bisulfate (Plavix) 75 mg DAILY PO 06/22/19 16:00 07/22/19 15:59 Levothyroxine Sodium (Synthroid) 75 mcg ACB PO 06/23/19 06:30 07/23/19 06:29 06/23/19 06:10 Atorvastatin Calcium (Lipitor) 5 mg HS PO 06/22/19 21:00 07/22/19 20:59 06/22/19 20:51 Metoprolol Tartrate (Lopresser) 25 mg BID PO 06/22/19 21:00 07/22/19 20:59 06/22/19 20:52 Sterile Water (Water) 1,000 ml STK-MED ONCE .ROUTE 06/22/19 17:43 06/22/19 17:45 DC Metoprolol Tartrate (Lopresser) 25 mg STK-MED ONCE .ROUTE 06/22/19 20:43 06/22/19 20:45 DC Atorvastatin Calcium (Lipitor) 10 mg STK-MED ONCE .ROUTE 06/22/19 20:44 06/22/19 20:46 DC Pantoprazole Sodium (Protonix) 40 mg STK-MED ONCE PO 06/22/19 20:44 06/22/19 20:46 DC Sodium Chloride 500 ml @ 500 mls/hr Q1H ONCE IV 06/22/19 23:30 06/23/19 01:06 DC 06/22/19 23:30 Levothyroxine Sodium (Synthroid) 75 mcg STK-MED ONCE .ROUTE 06/23/19 05:33 06/23/19 05:35 DC Course Sepsis Screening Results: Posi: POSITIVE Sepsis Qualifier/Stage: SEPSIS RISK Duration or Total Time Spent w: 15 Vitals & review Data Vital Sign - Last 24 Hours 06/22/19 06/22/19 06/22/19 06/22/19 10:00 10:20 10:21 11:42 Temp 97.5 97.5 Pulse 67 67 73 Resp 20 20 20 18 B/P (MAP) 124/50 (74) 116/62 (80) Pulse Ox 90 90 90 O2 Delivery Room Air Room Air Room Air 06/22/19 06/22/19 06/22/19 06/22/19 12:31 14:04 14:15 14:30 Temp 97.5 Pulse 62 66 65 68 Resp 16 B/P (MAP) 119/77 (91) 106/56 (73) 124/70 (88) 114/58 (76) Pulse Ox 95 96 O2 Delivery Room Air O2 Flow Rate 2.00 06/22/19 06/22/19 06/22/19 06/22/19 14:33 16:34 16:45 17:00 Pulse 64 64 61 B/P (MAP) 114/65 (81) 111/56 (74) 111/57 (75) O2 Delivery Nasal Cannula O2 Flow Rate 2.00 06/22/19 06/22/19 06/22/19 06/22/19 17:15 17:30 17:45 18:01 Temp 98.2 Pulse 61 60 68 66 B/P (MAP) 97/66 (76) 104/73 (83) 109/46 (67) 131/58 (82) Pulse Ox 90 97 99 06/22/19 06/22/19 06/22/19 06/22/19 18:25 18:31 18:45 19:00 Temp 97.4 Pulse 71 69 66 B/P (MAP) 88/57 (67) 113/59 (77) 110/57 (74) 06/22/19 06/22/19 06/22/19 06/22/19 19:02 19:15 19:30 19:45 Pulse 71 69 70 61 Resp 18 B/P (MAP) 131/81 (98) 104/70 (81) 112/45 (67) 110/55 (73) 06/22/19 06/22/19 06/22/19 06/22/19 20:00 20:15 20:41 20:45 Pulse 67 68 66 84 Resp 18 B/P (MAP) 101/58 (72) 124/52 (76) 99/56 (70) 105/56 (72) Pulse Ox 93 98 100 06/22/19 06/22/19 06/22/19 06/22/19 20:52 21:00 21:13 21:15 Pulse 68 65 62 Resp 20 B/P (MAP) 105/56 119/50 (73) 89/62 (71) Pulse Ox 99 99 O2 Delivery Nasal Cannula O2 Flow Rate 2.00 06/22/19 06/22/19 06/22/19 06/22/19 21:30 21:45 22:01 22:15 Pulse 75 67 63 61 Resp 18 B/P (MAP) 104/66 (79) 105/51 (69) 117/51 (73) 87/50 (62) Pulse Ox 99 99 91 06/22/19 06/22/19 06/22/19 06/22/19 22:30 22:33 22:34 22:45 Pulse 63 65 67 70 B/P (MAP) 83/47 (59) 87/37 (54) 92/46 (61) 104/54 (71) Pulse Ox 98 100 99 06/22/19 06/22/19 06/22/19 06/22/19 23:01 23:15 23:30 23:46 Temp 98.0 Pulse 66 65 62 74 Resp 18 B/P (MAP) 133/66 (88) 102/36 (58) 101/58 (72) 105/59 (74) Pulse Ox 100 92 93 06/23/19 06/23/19 06/23/19 06/23/19 00:02 00:05 00:15 00:30 Pulse 71 69 66 Resp 18 B/P (MAP) 101/66 (78) 131/46 (74) 103/72 (82) Pulse Ox 90 O2 Delivery Nasal Cannula O2 Flow Rate 2.00 06/23/19 06/23/19 06/23/19 06/23/19 00:45 01:00 01:16 01:30 Pulse 66 66 67 67 Resp 16 B/P (MAP) 111/47 (68) 107/60 (76) 105/53 (70) 93/52 (66) Pulse Ox 97 99 89 06/23/19 06/23/19 06/23/19 06/23/19 01:48 02:00 02:15 02:30 Pulse 70 109 63 60 Resp 18 B/P (MAP) 94/51 (65) 94/50 (65) 108/62 (77) 103/48 (66) Pulse Ox 97 97 06/23/19 06/23/19 06/23/19 06/23/19 02:45 03:00 03:15 03:31 Pulse 64 72 67 67 Resp 16 B/P (MAP) 108/51 (70) 89/58 (68) 91/61 (71) 97/35 (55) Pulse Ox 98 95 99 93 06/23/19 06/23/19 06/23/19 06/23/19 03:46 04:00 04:08 04:15 Temp 97.5 Pulse 66 66 62 Resp 18 B/P (MAP) 93/41 (58) 105/58 (74) 100/50 (67) Pulse Ox 97 93 O2 Delivery Nasal Cannula O2 Flow Rate 2.00 06/23/19 06/23/19 06/23/19 06/23/19 04:31 04:56 05:01 05:15 Pulse 63 69 60 63 Resp 18 B/P (MAP) 93/38 (56) 116/75 (89) 99/51 (67) 110/49 (69) Pulse Ox 91 96 06/23/19 06/23/19 06/23/19 06/23/19 05:30 05:46 06:00 06:15 Pulse 58 70 64 63 B/P (MAP) 92/46 (61) 105/52 (69) 103/49 (67) 106/57 (73) Pulse Ox 78 100 06/23/19 06/23/19 06/23/19 06:30 06:45 07:00 Pulse 62 67 67 Resp 18 B/P (MAP) 114/56 (75) 109/57 (74) 99/50 (66) Pulse Ox 91 86 Intake and Output 06/22/19 06/22/19 06/23/19 15:00 23:00 07:00 Intake Total 1983 ml Output Total 250 ml 580 ml Balance -250 ml 1403 ml Laboratory Tests Test 06/22/19 10:15 06/22/19 11:16 06/22/19 11:39 06/22/19 16:25 White Blood Count 15.2 10^3/uL Red Blood Count 3.83 10^6/uL Hemoglobin 10.6 g/dL Hematocrit 33.1 % Mean Corpuscular Volume 86.4 fL Mean Corpuscular Hemoglobin 27.7 pg Mean Corpuscular Hemoglobin Concent 32.0 g/dL Red Cell Distribution Width 17.5 % Platelet Count 261 10^3/uL Mean Platelet Volume 9.5 fL Neutrophils (%) (Auto) 81.5 % Lymphocytes (%) (Auto) 8.6 % Monocytes (%) (Auto) 7.7 % Neutrophils # (Auto) 12.4 10^3/uL Lymphocytes # (Auto) 1.3 10^3/uL Monocytes # (Auto) 1.2 10^3/uL Absolute Immature Granulocyte (auto 0.20 10^3 u/L Immature Granulocytes % 1.30 % Eosinophils % 0.6 % Basophils % 0.3 % Basophils # 0.0 10^3/uL Eosinophil Count 0.1 10^3/uL Prothrombin Time 13.6 SEC Prothrombin Time INR (Non-Therap) 1.3 Activated Partial Thromboplast Time 33.2 SEC Sodium Level 131 mmol/L Potassium Level 5.2 mmol/L Chloride Level 98.0 mmol/L Carbon Dioxide Level 24.7 mmol/L Anion Gap 13.5 Blood Urea Nitrogen 62 mg/dL Creatinine 2.01 mg/dL Estimated GFR () 38.7 BUN/Creatinine Ratio 30.0 Glucose Level 158 mg/dL Calcium Level 8.9 mg/dL Total Bilirubin 2.3 mg/dL Aspartate Amino Transf (AST/SGOT) 36 U/L Alanine Aminotransferase (ALT/SGPT) 26 U/L Alkaline Phosphatase 163 U/L Ammonia 18 umol/L Total Creatine Kinase 443 U/L Creatine Kinase MB 3.0 ng/mL Troponin I < 0.02 ng/mL < 0.02 ng/mL Pro-B-Type Natriuretic Peptide 2897 pg/mL Total Protein 7.1 g/dL Albumin 3.5 g/dL Globulin 3.6 Blood Gas Sample Site RB Blood Gas pH 7.440 Blood Gas PCO2 37.2 mmHg Blood Gas PO2 56.0 mmHg Blood Gas HCO3 25.2 mmol/L Blood Gas Base Excess 1.3 mmol/L Roland Test N/A Arterial Blood Oxygen Saturation 88.3 % Deoxyhemoglobin 11.6 % Carboxyhemoglobin 0.7 % Methemoglobin 0.1 % Total Hemoglobin 11.2 % Total Oxygen Concentration 13.8 % Blood Gas Temperature 37 Oxygen Delivery Method (LAB) NASAL CANNULA FiO2 28 % Bicarbonate 26.4 mmol/L Urine Collection Type CATH Urine Color YELLOW Urine Appearance CLOUDY Urine Bilirubin NEGATIVE MG/DL Urine Ketones NEGATIVE Urine Specific [place] 1.010 Urine pH 6 Urine Protein 15 mg/dL Urine Urobilinogen NORMAL Urine Nitrate POSITIVE Urine Leukocyte Esterase 500/uL 2+ Urine Blood 150 3+ Urine RBC TNTC RBC/HPF Urine WBC TNTC WBC/HPF Urine Squamous Epithelial Cells RARE #/HPF Urine Bacteria MANY Urine Glucose NORMAL Test 06/22/19 20:42 06/22/19 22:04 06/23/19 06:08 06/23/19 06:29 Bedside Glucose 124 Troponin I < 0.02 ng/mL White Blood Count 14.6 10^3/uL Red Blood Count 3.26 10^6/uL Hemoglobin 9.0 g/dL Hematocrit 28.3 % Mean Corpuscular Volume 86.8 fL Mean Corpuscular Hemoglobin 27.6 pg Mean Corpuscular Hemoglobin Concent 31.8 g/dL Red Cell Distribution Width 17.3 % Platelet Count 252 10^3/uL Mean Platelet Volume 9.0 fL Neutrophils (%) (Auto) 80.8 % Lymphocytes (%) (Auto) 6.4 % Monocytes (%) (Auto) 10.2 % Neutrophils # (Auto) 11.8 10^3/uL Lymphocytes # (Auto) 0.9 10^3/uL Monocytes # (Auto) 1.5 10^3/uL Absolute Immature Granulocyte (auto 0.19 10^3 u/L Immature Granulocytes % 1.30 % Eosinophils % 1.2 % Basophils % 0.1 % Basophils # 0.0 10^3/uL Eosinophil Count 0.2 10^3/uL Prothrombin Time 12.7 SEC Prothrombin Time INR (Non-Therap) 1.2 Sodium Level 134 mmol/L Potassium Level 4.7 mmol/L Chloride Level 100.0 mmol/L Carbon Dioxide Level 25.5 mmol/L Anion Gap 13.2 Blood Urea Nitrogen 61 mg/dL Creatinine 2.11 mg/dL Estimated GFR () 36.6 BUN/Creatinine Ratio 28.0 Glucose Level 120 mg/dL Calcium Level 8.2 mg/dL Magnesium Level 2.9 mg/dL Total Bilirubin 1.8 mg/dL Aspartate Amino Transf (AST/SGOT) 32 U/L Alanine Aminotransferase (ALT/SGPT) 26 U/L Alkaline Phosphatase 146 U/L Total Protein 6.3 g/dL Albumin 3.2 g/dL Globulin 3.1 Differential Total Cells Counted 100 #CELLS Segmented Neutrophils 80 % Lymphocytes 8 % Monocytes 11 % Absolute Eosinophils (Manual) 1 % Nucleated Red Blood Cells 1 % Platelet Estimate ADEQUATE Platelet Morphology NORMAL Blood Morphology Comment NORMAL MORPHOLOGY Current Medications Medications (Trade) Dose Ordered Sig/Debbie PRN Reason Start Time Stop Time Status Last Admin Atorvastatin Calcium (Lipitor) 5 mg HS 06/22/19 21:00 07/22/19 20:59 06/22/19 20:51 Clopidogrel Bisulfate (Plavix) 75 mg DAILY 06/22/19 16:00 07/22/19 15:59 Dextrose (Dextrose 50%-Water Syringe) 25 ml STAT PRN HYPOGLYCEMIA 06/22/19 15:30 07/22/19 15:29 Insulin Human Regular (Humulin R) Give 30 minutes before meal ACHS 06/22/19 17:30 07/22/19 17:29 Levothyroxine Sodium (Synthroid) 75 mcg ACB 06/23/19 06:30 07/23/19 06:29 06/23/19 06:10 Meropenem 1000 mg/ Sodium Chloride 100 ml @ 200 mls/hr BID 06/22/19 21:00 07/22/19 13:59 06/22/19 20:51 Metoprolol Tartrate (Lopresser) 25 mg BID 06/22/19 21:00 07/22/19 20:59 06/22/19 20:52 Pantoprazole Sodium (Protonix) 40 mg BID 06/22/19 21:00 07/23/19 08:59 06/22/19 20:51 Sodium Chloride 1,000 ml @ 30 mls/hr Q24H 06/22/19 15:30 07/22/19 15:29 06/22/19 18:00 Sodium Chloride 2,098 ml @ 1,049 mls/hr OT 06/22/19 13:00 07/22/19 12:59 Sepsis Infection Criteria Pres: Documented Infection LEVEL 1 SEPSIS INFECTION CRITE: ABX Therapy, Urinary Tract Infection LEVEL 2-SIRS (LIST ALL THAT AP: [id number] Cardiovascular Evidence: Not Assessed or None Hematologic Evidence: None/Not assessed Hepatic Evidence: None/Not assessed Metabolic Evidence: None/Not assessed Neurological Evidence: None/Not assessed Respiratory Evidence: Need for O2 to keep>90% Renal Evidence: Creatinine Lvl>2.0 O2 Sat by Pulse Oximetry: 89 Oxygen Flow Rate: 2.00 Assessment/Plan Assessment/Plan Assessment/Plan 1. UTI/Sepsis/Metabolic Encephalopathy: cont IVF, cont IVF abx. Encephalopathy resolved and patient at baseline mentation. Blood cx positive x 1. Midline placed. Urine cx pending final results. Guarded prognosis and I discussed with family. Hospice comfort care recommended but family not agreeable. Transfer to higher acuity of care recommended but family not agreeable. Cont current treatment regimen. ABG reviewed. Patient given IV bolus this AM to help with acidosis. IVF rate increased. 2. PVD: d/c plavix 2/2 bleeding from skin tear and anemia. 3. Afib: cont BB, rate controlled. Holding anticoagulation 2/2 anemia. 4. Heart failure: no diuretics 2/2 sepsis/bacteremia. No Cardiology consult needed currently. 5. HTN: cont BB, holding diuretics 6. Cirrhosis: CT reviewed. Discussed results with patient/MPOA. They are not agreeable to Hospice referral or transfer to higher acuity of care. Ascites mild. Not candidate for paracentesis 2/2 not enough ascites. No suspected SBP, we have source for sepsis. 7. Hyperbilirubinemia: 2/2 cirrhosis, hemoconcentration. Patient denies pain, nausea. 8. Hyperuricemia: hold Allopurinol 9. PPx: PPI BID, (holding anticoagulation 2/2 drog in Hg.) 10. Elevated BNP: 2/2 EJ and hx of heart failure. 11. DM: SSI to cover 12. EJ: 2/2 ATN/Sepsis/Hepatorenal syndrome. Holding diuretics. Increase IVF today. 13. Anemia: Hg stable. Will cont Serial CBC. Tranfuse if needed. Type and Screen completed. 14. Skin tear: cont wound care. Dressing in place. Monitor bleeding from lesion. REYNA Thomson MD Jun 24, 2019 07:24
[2019-06-24] MEDS: HUMULIN R SQ SCH ×4 (07:30→21:00)
[2019-06-24] MEDS ORDERED: NS 500ML 500 ML IV ONE (07:30)
[2019-06-24] MEDS ORDERED: NS IV ONE (07:30)
--- NOTE | 2019-06-24 07:35 | DIREP ---
PROCEDURE:CHEST 1 VIEW COMPARISON:[facility], CR, XRAY CHEST SINGLE VW, 06/22/2019, 10:35 AM. INDICATIONS:heart failure FINDINGS: LUNGS/PLEURA:Shallow inspiratory effort. No infiltrates, nodules or mass lesions. VASCULATURE:Normal. Unremarkable pulmonary vasculature. CARDIAC:Heart size cannot be evaluated due to AP technique. MEDIASTINUM:Calcification in the aortic arch. BONES:Normal. No fracture or visible bony lesion. OTHER:Monitor leads are in place. CONCLUSION:Shallow inspiratory effort. No acute abnormalities. No change from previous study. Dictated by: Max Gardner M.D. on 06/24/2019 at 07:32 AM
[2019-06-24] MEDS ORDERED: D5W-1/2 NS/KCL 20MEQ 1,000 ML ONE (07:38)
[2019-06-24] MEDS ORDERED: HUMULIN R ONE (07:46)
[2019-06-24] MEDS ORDERED: LOPRESSER ONE (09:21)
[2019-06-24] MEDS ORDERED: PROTONIX PO ONE (09:22)
[2019-06-24] MEDS: PROTONIX PO SCH ×2 (09:25→21:16)
[2019-06-24] MEDS: MEROPENEM 1,000 MG in NS 100ML 100 ML IV SCH ×2 (09:26→21:10)
[2019-06-24] MEDS: LOPRESSER PO SCH ×2 (10:01→21:18)
[2019-06-24] MEDS ORDERED: TYLENOL PO ONE ×2 (10:29→11:00)
--- NOTE | 2019-06-24 11:05 | NUR ---
Physical therapy Physical therapy at bedside
--- NOTE | 2019-06-24 13:30 | NUR ---
DISCHARGE UPDATE/REFERRAL DR. RABAGO ADVISED PATIENT WOULD NEED LTAC LEVEL OF CARE INSTEAD OF SNF. CM CONTACTED PATIENT'S DAUGHTER, KEVIN MICHELLE, @ [phone] SHE STATED, "YES DR. RABAGO TALKED WITH ME ABOUT LTAC AND I AM OK WITH [facility]." CM CONTACTED [facility] REP @ [phone] ABOUT REFERRAL FOR LTAC WITH A POSSIBLE DISCHARGE DATE OF 06/25/19 OR 06/26/19. ALL CLINICAL WAS FAXED TO [phone] [facility]. CM WILL CONTINUE TO FOLLOW FOR DISCHARGE NEEDS.
[2019-06-24 15:20] LABS: BASOPHIL % 0.3 % (0.0-0.2); EOSINOPHIL # 0.3 10^3/uL (0.0-0.2); EOSINOPHIL % 2.2 % (0.0-5.0); HEMOGLOBIN 8.5 g/dL (13.9-16.3); LYMPHOCYTES # 1.3 10^3/uL (1.0-4.8); LYMPHOCYTES % 9.3 % (24.0-44.0); MEAN CELL HGB 27.4 pg (26-34); MEAN CELL HGB CONCENTRATION 31.7 g/dL (33-37); MEAN CORP VOLUME 86.5 fL (78-100); MEAN PLATELET VOLUME 9.3 fL (7.8-11.0); MONOCYTES # 1.3 10^3/uL (0.3-0.8); MONOCYTES % 9.6 % (5.0-12.0); NEUTROPHIL # 10.3 10^3/uL (1.8-7.7); NEUTROPHILS % 74.7 % (41.0-85.0); RED CELL DISTRIBUTION WIDTH 17.5 % (11.5-14.5); WHITE BLOOD CELL 13.7 10^3/uL (4.5-11.0)
[2019-06-24 15:48] LABS: CARBON DIOXIDE 21.7 mmol/L (20.0-32)
--- NOTE | 2019-06-24 18:45 | NUR ---
REPORT RECEIVED FROM BLAYNE LUGO RN. ASSUMED PT CARE.
--- NOTE | 2019-06-24 20:30 | NUR ---
PT ASSISTED BACK TO BED. CALL LIGHT AND TABLE WITHIN REACH. BED IN LOW POSITION, LOCKED, HOB ELEVATED AND SIDE RAILS UP X2. PT DENIES ANY PAIN OR NEEDS AT THIS TIME. WILL CONTINUE TO MONITOR.
[2019-06-24 20:51] LABS: BAND NEUTROPHILS 1 % (2-6); EOSINOPHIL 2 % (1-4); LYMPHOCYTE 9 % (25-36); MONOCYTE 6 % (3-9); SEGMENTED NEUTROPHILS 78 % (31-76)
[2019-06-24 20:52] LABS: OTHER CELL TYPE 2
[2019-06-24] MEDS: LIPITOR PO SCH (21:16)
[2019-06-24] MEDS: MUCINEX PO SCH (21:16)
--- NOTE | 2019-06-24 22:05 | NUR ---
TOILET: PT REQUESTED TO BE TRANSFERRED TO TOILET.
[2019-06-25] VITALS (66 sets, daily range): BP systolic 47–167; BP diastolic 19–115
[2019-06-25] MEDS: NS 1000ML 1,000 ML IV SCH ×3 (01:54→23:29)
--- NOTE | 2019-06-25 03:09 | NUR ---
URINAL: PT STOOD AT SIDE OF BED TO USE URINAL X STANDBY ASSIST. PT VOIDED 325ML OF CLOUDY JUSTINA URINE AND REQUESTED TO SIT AT SIDE OF BED. CALL LIGHT AND TABLE WITHIN REACH. BED IN LOW POSITION, LOCKED, HOB ELEVATED AND SIDE RAILS UP X2. WILL CONTINUE TO MONITOR.
[2019-06-25 06:07] LABS: BASOPHIL # 0.1 10^3/uL (0.0-0.1); BASOPHIL % 0.3 % (0.0-0.2); EOSINOPHIL # 0.2 10^3/uL (0.0-0.2); EOSINOPHIL % 1.7 % (0.0-5.0); HEMOGLOBIN 8.3 g/dL (13.9-16.3); LYMPHOCYTES # 1.5 10^3/uL (1.0-4.8); LYMPHOCYTES % 10.1 % (24.0-44.0); MEAN CELL HGB 27.3 pg (26-34); MEAN CELL HGB CONCENTRATION 31.6 g/dL (33-37); MEAN CORP VOLUME 86.5 fL (78-100); MEAN PLATELET VOLUME 9.2 fL (7.8-11.0); MONOCYTES # 1.4 10^3/uL (0.3-0.8); MONOCYTES % 9.5 % (5.0-12.0); NEUTROPHIL # 10.8 10^3/uL (1.8-7.7); NEUTROPHILS % 74.6 % (41.0-85.0); RED CELL DISTRIBUTION WIDTH 17.3 % (11.5-14.5); WHITE BLOOD CELL 14.4 10^3/uL (4.5-11.0)
[2019-06-25] MEDS: SYNTHROID PO SCH (06:19)
[2019-06-25 06:33] LABS: CALCIUM 7.9 mg/dL (8.4-10.5)
--- NOTE | 2019-06-25 06:50 | NUR ---
REPORT TO CHEYENNE VALENTINE RN. PT CARE RELINQUISHED.
[2019-06-25] MEDS: HUMULIN R SQ SCH ×4 (07:30→21:00)
[2019-06-25] MEDS ORDERED: NS 500ML 500 ML IV ONE (08:00)
[2019-06-25 08:24] LABS: ANISOCYTOSIS 1+ (NEGATIVE); BAND NEUTROPHILS 1 % (2-6); BASOPHIL 1 % (0-2); EOSINOPHIL 1 % (1-4); LYMPHOCYTE 12 % (25-36); MONOCYTE 6 % (3-9); MYELOCYTES 1 %; NUCLEATED RED BLOOD CELLS 1 % (0-0); SEGMENTED NEUTROPHILS 78 % (31-76); TOXIC GRANULATION 1+ (NEGATIVE)
--- NOTE | 2019-06-25 08:25 | PRM.PN ---
Subjective Subjective Date: Jun 25, 2019 Time: 08:00 Subjective Labs reviewed. I discussed findings with daughter via telephone. We will meet later tonight. Patient is feeling better. He has been intermittently confused. Pending LTAC/SNF approval for d/c. VTE VTE Risk Total Score: >5 VTE Risk Score VTE Risk: Score 0-1 = Low Risk (Aggressive mobilization; early ambulation; no VTE prophylaxis required) Score 2: Moderate Risk (Intermittent/Pneumatic Compression Device OR Lovenox/Heparin/Coumadin) Score 3-4: High Risk (Intermittent/Pneumatic Compression Device AND Lovenox/Heparin/Coumadin) Score > or =5: Highest Risk (Intermittent/Pneumatic Compression Device AND Lovenox/Heparin/Coumadin) Review of Systems Allergies: Coded Allergies: saffron (Verified Allergy, Mild, 06/04/18) shrimp (Verified Allergy, Mild, 06/04/18) Scheduled Albuterol Sulfate (Proair Hfa), 8.5 GM IH QID, (Reported) Allopurinol (Allopurinol), 100 MG PO BID, (Reported) Cholestyramine (With Sugar) (Cholestyramine Powder), 378 GM PO PRN, (Reported) Ciprofloxacin Hcl (Cipro), 500 MG PO BID Clopidogrel Bisulfate (Plavix), 75 MG PO DAILY24, (Reported) Levothyroxine Sodium (Levothyroxine Sodium), 1 TAB PO DAILY, (Reported) Lovastatin (Lovastatin), 20 MG PO DAILY24, (Reported) Metoprolol Tartrate 25MG (Lopresser 25MG), 25 MG PO q12, (Reported) Pantoprazole Sodium (Pantoprazole Sodium), 40 MG PO DAILY24, (Reported) Potassium Chloride (Potassium Chloride), 10 MEQ PO BID, (Reported) Potassium Chloride (Potassium Chloride), 1 TAB PO BID, (Reported) Prednisone (Prednisone), 5 MG PO DAILY24, (Reported) Rivaroxaban (Xarelto), 2.5 MG PO BID, (Reported) Spironolactone (Spironolactone), 25 MG PO DAILY24, (Reported) Sucralfate (Carafate), 10 MILLILITER PO BID, (Reported) Torsemide (Torsemide), 20 MG PO TID, (Reported) Umeclidinium Brm/Vilanterol Tr (Anoro Ellipta 62.5-25 Mcg INH), 1 EACH IH DAILY24, (Reported) Objective Vitals and I/O Vital Sign - Last 24 Hours 06/22/19 06/22/19 06/22/19 06/22/19 10:00 10:20 10:21 11:42 Temp 97.5 97.5 Pulse 67 67 73 Resp 20 20 20 18 B/P (MAP) 124/50 (74) 116/62 (80) Pulse Ox 90 90 90 O2 Delivery Room Air Room Air Room Air 06/22/19 06/22/19 06/22/19 06/22/19 12:31 14:04 14:15 14:30 Temp 97.5 Pulse 62 66 65 68 Resp 16 B/P (MAP) 119/77 (91) 106/56 (73) 124/70 (88) 114/58 (76) Pulse Ox 95 96 O2 Delivery Room Air O2 Flow Rate 2.00 06/22/19 06/22/19 06/22/19 06/22/19 14:33 16:34 16:45 17:00 Pulse 64 64 61 B/P (MAP) 114/65 (81) 111/56 (74) 111/57 (75) O2 Delivery Nasal Cannula O2 Flow Rate 2.00 06/22/19 06/22/19 06/22/19 06/22/19 17:15 17:30 17:45 18:01 Temp 98.2 Pulse 61 60 68 66 B/P (MAP) 97/66 (76) 104/73 (83) 109/46 (67) 131/58 (82) Pulse Ox 90 97 99 06/22/19 06/22/19 06/22/19 06/22/19 18:25 18:31 18:45 19:00 Temp 97.4 Pulse 71 69 66 B/P (MAP) 88/57 (67) 113/59 (77) 110/57 (74) 06/22/19 06/22/19 06/22/19 06/22/19 19:02 19:15 19:30 19:45 Pulse 71 69 70 61 Resp 18 B/P (MAP) 131/81 (98) 104/70 (81) 112/45 (67) 110/55 (73) 06/22/19 06/22/19 06/22/19 06/22/19 20:00 20:15 20:41 20:45 Pulse 67 68 66 84 Resp 18 B/P (MAP) 101/58 (72) 124/52 (76) 99/56 (70) 105/56 (72) Pulse Ox 93 98 100 06/22/19 06/22/19 06/22/19 06/22/19 20:52 21:00 21:13 21:15 Pulse 68 65 62 Resp 20 B/P (MAP) 105/56 119/50 (73) 89/62 (71) Pulse Ox 99 99 O2 Delivery Nasal Cannula O2 Flow Rate 2.00 06/22/19 06/22/19 06/22/19 06/22/19 21:30 21:45 22:01 22:15 Pulse 75 67 63 61 Resp 18 B/P (MAP) 104/66 (79) 105/51 (69) 117/51 (73) 87/50 (62) Pulse Ox 99 99 91 06/22/19 06/22/19 06/22/19 06/22/19 22:30 22:33 22:34 22:45 Pulse 63 65 67 70 B/P (MAP) 83/47 (59) 87/37 (54) 92/46 (61) 104/54 (71) Pulse Ox 98 100 99 06/22/19 06/22/19 06/22/19 06/22/19 23:01 23:15 23:30 23:46 Temp 98.0 Pulse 66 65 62 74 Resp 18 B/P (MAP) 133/66 (88) 102/36 (58) 101/58 (72) 105/59 (74) Pulse Ox 100 92 93 06/23/19 06/23/19 06/23/19 06/23/19 00:02 00:05 00:15 00:30 Pulse 71 69 66 Resp 18 B/P (MAP) 101/66 (78) 131/46 (74) 103/72 (82) Pulse Ox 90 O2 Delivery Nasal Cannula O2 Flow Rate 2.00 06/23/19 06/23/19 06/23/19 06/23/19 00:45 01:00 01:16 01:30 Pulse 66 66 67 67 Resp 16 B/P (MAP) 111/47 (68) 107/60 (76) 105/53 (70) 93/52 (66) Pulse Ox 97 99 89 06/23/19 06/23/19 06/23/19 06/23/19 01:48 02:00 02:15 02:30 Pulse 70 109 63 60 Resp 18 B/P (MAP) 94/51 (65) 94/50 (65) 108/62 (77) 103/48 (66) Pulse Ox 97 97 06/23/19 06/23/19 06/23/19 06/23/19 02:45 03:00 03:15 03:31 Pulse 64 72 67 67 Resp 16 B/P (MAP) 108/51 (70) 89/58 (68) 91/61 (71) 97/35 (55) Pulse Ox 98 95 99 93 06/23/19 06/23/19 06/23/19 06/23/19 03:46 04:00 04:08 04:15 Temp 97.5 Pulse 66 66 62 Resp 18 B/P (MAP) 93/41 (58) 105/58 (74) 100/50 (67) Pulse Ox 97 93 O2 Delivery Nasal Cannula O2 Flow Rate 2.00 06/23/19 06/23/19 06/23/19 06/23/19 04:31 04:56 05:01 05:15 Pulse 63 69 60 63 Resp 18 B/P (MAP) 93/38 (56) 116/75 (89) 99/51 (67) 110/49 (69) Pulse Ox 91 96 06/23/19 06/23/19 06/23/19 06/23/19 05:30 05:46 06:00 06:15 Pulse 58 70 64 63 B/P (MAP) 92/46 (61) 105/52 (69) 103/49 (67) 106/57 (73) Pulse Ox 78 100 06/23/19 06/23/19 06/23/19 06:30 06:45 07:00 Pulse 62 67 67 Resp 18 B/P (MAP) 114/56 (75) 109/57 (74) 99/50 (66) Pulse Ox 91 86 Intake and Output 06/22/19 06/22/19 06/23/19 15:00 23:00 07:00 Intake Total 1983 ml Output Total 250 ml 580 ml Balance -250 ml 1403 ml General: Alert, Cooperative, No acute distress HEENT: Atraumatic, PERRLA, EOMI, Mucous membr. moist/pink, Other (Upper airway congestion) Neck: Supple, No JVD Lungs: Clear to auscultation, Normal air movement Heart: Normal S1, Normal S2 Abdomen: Normal bowel sounds, Soft, Other (Abdominal distension, but not increasing) Extremities: Normal pulses, Other (abrasion/skin tear of LUE) Skin: Other (xerosis bilaterally, venous stasis changes) Neuro: Normal speech, Strength at 5/5 X4 ext, Normal tone, Sensation intact, Cranial nerves 3-12 NL Psych/Mental Status: Mental status NL, Mood NL All Results(Lab/Rad) Laboratory Tests Test 06/22/19 10:15 06/22/19 11:16 06/22/19 11:39 06/22/19 16:25 White Blood Count 15.2 10^3/uL Red Blood Count 3.83 10^6/uL Hemoglobin 10.6 g/dL Hematocrit 33.1 % Mean Corpuscular Volume 86.4 fL Mean Corpuscular Hemoglobin 27.7 pg Mean Corpuscular Hemoglobin Concent 32.0 g/dL Red Cell Distribution Width 17.5 % Platelet Count 261 10^3/uL Mean Platelet Volume 9.5 fL Neutrophils (%) (Auto) 81.5 % Lymphocytes (%) (Auto) 8.6 % Monocytes (%) (Auto) 7.7 % Neutrophils # (Auto) 12.4 10^3/uL Lymphocytes # (Auto) 1.3 10^3/uL Monocytes # (Auto) 1.2 10^3/uL Absolute Immature Granulocyte (auto 0.20 10^3 u/L Immature Granulocytes % 1.30 % Eosinophils % 0.6 % Basophils % 0.3 % Basophils # 0.0 10^3/uL Eosinophil Count 0.1 10^3/uL Prothrombin Time 13.6 SEC Prothrombin Time INR (Non-Therap) 1.3 Activated Partial Thromboplast Time 33.2 SEC Sodium Level 131 mmol/L Potassium Level 5.2 mmol/L Chloride Level 98.0 mmol/L Carbon Dioxide Level 24.7 mmol/L Anion Gap 13.5 Blood Urea Nitrogen 62 mg/dL Creatinine 2.01 mg/dL Estimated GFR () 38.7 BUN/Creatinine Ratio 30.0 Glucose Level 158 mg/dL Calcium Level 8.9 mg/dL Total Bilirubin 2.3 mg/dL Aspartate Amino Transf (AST/SGOT) 36 U/L Alanine Aminotransferase (ALT/SGPT) 26 U/L Alkaline Phosphatase 163 U/L Ammonia 18 umol/L Total Creatine Kinase 443 U/L Creatine Kinase MB 3.0 ng/mL Troponin I < 0.02 ng/mL < 0.02 ng/mL Pro-B-Type Natriuretic Peptide 2897 pg/mL Total Protein 7.1 g/dL Albumin 3.5 g/dL Globulin 3.6 Blood Gas Sample Site RB Blood Gas pH 7.440 Blood Gas PCO2 37.2 mmHg Blood Gas PO2 56.0 mmHg Blood Gas HCO3 25.2 mmol/L Blood Gas Base Excess 1.3 mmol/L Roland Test N/A Arterial Blood Oxygen Saturation 88.3 % Deoxyhemoglobin 11.6 % Carboxyhemoglobin 0.7 % Methemoglobin 0.1 % Total Hemoglobin 11.2 % Total Oxygen Concentration 13.8 % Blood Gas Temperature 37 Oxygen Delivery Method (LAB) NASAL CANNULA FiO2 28 % Bicarbonate 26.4 mmol/L Urine Collection Type CATH Urine Color YELLOW Urine Appearance CLOUDY Urine Bilirubin NEGATIVE MG/DL Urine Ketones NEGATIVE Urine Specific [place] 1.010 Urine pH 6 Urine Protein 15 mg/dL Urine Urobilinogen NORMAL Urine Nitrate POSITIVE Urine Leukocyte Esterase 500/uL 2+ Urine Blood 150 3+ Urine RBC TNTC RBC/HPF Urine WBC TNTC WBC/HPF Urine Squamous Epithelial Cells RARE #/HPF Urine Bacteria MANY Urine Glucose NORMAL Test 06/22/19 20:42 06/22/19 22:04 06/23/19 06:08 06/23/19 06:29 Bedside Glucose 124 Troponin I < 0.02 ng/mL White Blood Count 14.6 10^3/uL Red Blood Count 3.26 10^6/uL Hemoglobin 9.0 g/dL Hematocrit 28.3 % Mean Corpuscular Volume 86.8 fL Mean Corpuscular Hemoglobin 27.6 pg Mean Corpuscular Hemoglobin Concent 31.8 g/dL Red Cell Distribution Width 17.3 % Platelet Count 252 10^3/uL Mean Platelet Volume 9.0 fL Neutrophils (%) (Auto) 80.8 % Lymphocytes (%) (Auto) 6.4 % Monocytes (%) (Auto) 10.2 % Neutrophils # (Auto) 11.8 10^3/uL Lymphocytes # (Auto) 0.9 10^3/uL Monocytes # (Auto) 1.5 10^3/uL Absolute Immature Granulocyte (auto 0.19 10^3 u/L Immature Granulocytes % 1.30 % Eosinophils % 1.2 % Basophils % 0.1 % Basophils # 0.0 10^3/uL Eosinophil Count 0.2 10^3/uL Prothrombin Time 12.7 SEC Prothrombin Time INR (Non-Therap) 1.2 Sodium Level 134 mmol/L Potassium Level 4.7 mmol/L Chloride Level 100.0 mmol/L Carbon Dioxide Level 25.5 mmol/L Anion Gap 13.2 Blood Urea Nitrogen 61 mg/dL Creatinine 2.11 mg/dL Estimated GFR () 36.6 BUN/Creatinine Ratio 28.0 Glucose Level 120 mg/dL Calcium Level 8.2 mg/dL Magnesium Level 2.9 mg/dL Total Bilirubin 1.8 mg/dL Aspartate Amino Transf (AST/SGOT) 32 U/L Alanine Aminotransferase (ALT/SGPT) 26 U/L Alkaline Phosphatase 146 U/L Total Protein 6.3 g/dL Albumin 3.2 g/dL Globulin 3.1 Differential Total Cells Counted 100 #CELLS Segmented Neutrophils 80 % Lymphocytes 8 % Monocytes 11 % Absolute Eosinophils (Manual) 1 % Nucleated Red Blood Cells 1 % Platelet Estimate ADEQUATE Platelet Morphology NORMAL Blood Morphology Comment NORMAL MORPHOLOGY Current Medications Medications (Trade) Dose Ordered Sig/Debbie Route PRN Reason Start Time Stop Time Status Last Admin Dose Admin Sodium Chloride 1,000 ml @ 0 mls/hr Q0M ONCE IV 06/22/19 10:30 06/22/19 10:31 DC 06/22/19 10:39 Sodium Chloride 1,000 ml @ 0 mls/hr Q0M ONCE IV 06/22/19 10:24 06/22/19 10:26 DC Diphtheria/ Tetanus/Acell Pertussis (Adacel Vial) 0.5 ml ONCE ONCE IM 06/22/19 11:00 06/22/19 11:01 DC 06/22/19 11:04 Sodium Chloride 1,000 ml @ ud STK-MED ONCE .ROUTE 06/22/19 10:37 06/22/19 10:39 DC Diphtheria/ Tetanus/Acell Pertussis (Adacel Vial) 0.5 ml STK-MED ONCE IM 06/22/19 10:37 06/22/19 10:40 DC Meropenem 500 mg/ Sodium Chloride 100 ml @ 200 mls/hr Q8 IV 06/22/19 14:00 11/6/19 15:17 DC 06/22/19 13:02 Sodium Chloride 2,098 ml @ 1,049 mls/hr OT IV 06/22/19 13:00 07/22/19 12:59 Sodium Chloride 100 ml @ ud STK-MED ONCE IV 06/22/19 12:39 06/22/19 12:41 DC Pantoprazole Sodium (Protonix) 40 mg DAILY PO 06/23/19 09:00 06/22/19 15:18 DC Sodium Chloride 1,000 ml @ 30 mls/hr Q24H IV 06/22/19 15:30 07/22/19 15:29 06/22/19 18:00 Meropenem 1000 mg/ Sodium Chloride 100 ml @ 200 mls/hr BID IV 06/22/19 21:00 07/22/19 13:59 06/22/19 20:51 Pantoprazole Sodium (Protonix) 40 mg BID PO 06/22/19 21:00 07/23/19 08:59 06/22/19 20:51 Insulin Human Regular (Humulin R) Give 30 minutes before meal ACHS SQ 06/22/19 17:30 07/22/19 17:29 Dextrose (Dextrose 50%-Water Syringe) 25 ml STAT PRN IV HYPOGLYCEMIA 06/22/19 15:30 07/22/19 15:29 Sodium Chloride 1,000 ml @ ud STK-MED ONCE .ROUTE 06/22/19 15:52 06/22/19 15:54 DC Clopidogrel Bisulfate (Plavix) 75 mg DAILY PO 06/22/19 16:00 07/22/19 15:59 Levothyroxine Sodium (Synthroid) 75 mcg ACB PO 06/23/19 06:30 07/23/19 06:29 06/23/19 06:10 Atorvastatin Calcium (Lipitor) 5 mg HS PO 06/22/19 21:00 07/22/19 20:59 06/22/19 20:51 Metoprolol Tartrate (Lopresser) 25 mg BID PO 06/22/19 21:00 07/22/19 20:59 06/22/19 20:52 Sterile Water (Water) 1,000 ml STK-MED ONCE .ROUTE 06/22/19 17:43 06/22/19 17:45 DC Metoprolol Tartrate (Lopresser) 25 mg STK-MED ONCE .ROUTE 06/22/19 20:43 06/22/19 20:45 DC Atorvastatin Calcium (Lipitor) 10 mg STK-MED ONCE .ROUTE 06/22/19 20:44 06/22/19 20:46 DC Pantoprazole Sodium (Protonix) 40 mg STK-MED ONCE PO 06/22/19 20:44 06/22/19 20:46 DC Sodium Chloride 500 ml @ 500 mls/hr Q1H ONCE IV 06/22/19 23:30 06/23/19 01:06 DC 06/22/19 23:30 Levothyroxine Sodium (Synthroid) 75 mcg STK-MED ONCE .ROUTE 06/23/19 05:33 06/23/19 05:35 DC Course Sepsis Screening Results: Posi: POSITIVE Sepsis Qualifier/Stage: SEPSIS RISK Duration or Total Time Spent w: 15 Vitals & review Data Vital Sign - Last 24 Hours 06/22/19 06/22/19 06/22/19 06/22/19 10:00 10:20 10:21 11:42 Temp 97.5 97.5 Pulse 67 67 73 Resp 20 20 20 18 B/P (MAP) 124/50 (74) 116/62 (80) Pulse Ox 90 90 90 O2 Delivery Room Air Room Air Room Air 06/22/19 06/22/19 06/22/19 06/22/19 12:31 14:04 14:15 14:30 Temp 97.5 Pulse 62 66 65 68 Resp 16 B/P (MAP) 119/77 (91) 106/56 (73) 124/70 (88) 114/58 (76) Pulse Ox 95 96 O2 Delivery Room Air O2 Flow Rate 2.00 06/22/19 06/22/19 06/22/19 06/22/19 14:33 16:34 16:45 17:00 Pulse 64 64 61 B/P (MAP) 114/65 (81) 111/56 (74) 111/57 (75) O2 Delivery Nasal Cannula O2 Flow Rate 2.00 06/22/19 06/22/19 06/22/19 06/22/19 17:15 17:30 17:45 18:01 Temp 98.2 Pulse 61 60 68 66 B/P (MAP) 97/66 (76) 104/73 (83) 109/46 (67) 131/58 (82) Pulse Ox 90 97 99 06/22/19 06/22/19 06/22/19 06/22/19 18:25 18:31 18:45 19:00 Temp 97.4 Pulse 71 69 66 B/P (MAP) 88/57 (67) 113/59 (77) 110/57 (74) 06/22/19 06/22/19 06/22/19 06/22/19 19:02 19:15 19:30 19:45 Pulse 71 69 70 61 Resp 18 B/P (MAP) 131/81 (98) 104/70 (81) 112/45 (67) 110/55 (73) 06/22/19 06/22/19 06/22/19 06/22/19 20:00 20:15 20:41 20:45 Pulse 67 68 66 84 Resp 18 B/P (MAP) 101/58 (72) 124/52 (76) 99/56 (70) 105/56 (72) Pulse Ox 93 98 100 06/22/19 06/22/19 06/22/19 06/22/19 20:52 21:00 21:13 21:15 Pulse 68 65 62 Resp 20 B/P (MAP) 105/56 119/50 (73) 89/62 (71) Pulse Ox 99 99 O2 Delivery Nasal Cannula O2 Flow Rate 2.00 06/22/19 06/22/19 06/22/19 06/22/19 21:30 21:45 22:01 22:15 Pulse 75 67 63 61 Resp 18 B/P (MAP) 104/66 (79) 105/51 (69) 117/51 (73) 87/50 (62) Pulse Ox 99 99 91 06/22/19 06/22/19 06/22/19 06/22/19 22:30 22:33 22:34 22:45 Pulse 63 65 67 70 B/P (MAP) 83/47 (59) 87/37 (54) 92/46 (61) 104/54 (71) Pulse Ox 98 100 99 06/22/19 06/22/19 06/22/19 06/22/19 23:01 23:15 23:30 23:46 Temp 98.0 Pulse 66 65 62 74 Resp 18 B/P (MAP) 133/66 (88) 102/36 (58) 101/58 (72) 105/59 (74) Pulse Ox 100 92 93 06/23/19 06/23/19 06/23/19 06/23/19 00:02 00:05 00:15 00:30 Pulse 71 69 66 Resp 18 B/P (MAP) 101/66 (78) 131/46 (74) 103/72 (82) Pulse Ox 90 O2 Delivery Nasal Cannula O2 Flow Rate 2.00 06/23/19 06/23/19 06/23/19 06/23/19 00:45 01:00 01:16 01:30 Pulse 66 66 67 67 Resp 16 B/P (MAP) 111/47 (68) 107/60 (76) 105/53 (70) 93/52 (66) Pulse Ox 97 99 89 06/23/19 06/23/19 06/23/19 06/23/19 01:48 02:00 02:15 02:30 Pulse 70 109 63 60 Resp 18 B/P (MAP) 94/51 (65) 94/50 (65) 108/62 (77) 103/48 (66) Pulse Ox 97 97 06/23/19 06/23/19 06/23/19 06/23/19 02:45 03:00 03:15 03:31 Pulse 64 72 67 67 Resp 16 B/P (MAP) 108/51 (70) 89/58 (68) 91/61 (71) 97/35 (55) Pulse Ox 98 95 99 93 06/23/19 06/23/19 06/23/19 06/23/19 03:46 04:00 04:08 04:15 Temp 97.5 Pulse 66 66 62 Resp 18 B/P (MAP) 93/41 (58) 105/58 (74) 100/50 (67) Pulse Ox 97 93 O2 Delivery Nasal Cannula O2 Flow Rate 2.00 06/23/19 06/23/19 06/23/19 06/23/19 04:31 04:56 05:01 05:15 Pulse 63 69 60 63 Resp 18 B/P (MAP) 93/38 (56) 116/75 (89) 99/51 (67) 110/49 (69) Pulse Ox 91 96 06/23/19 06/23/19 06/23/19 06/23/19 05:30 05:46 06:00 06:15 Pulse 58 70 64 63 B/P (MAP) 92/46 (61) 105/52 (69) 103/49 (67) 106/57 (73) Pulse Ox 78 100 06/23/19 06/23/19 06/23/19 06:30 06:45 07:00 Pulse 62 67 67 Resp 18 B/P (MAP) 114/56 (75) 109/57 (74) 99/50 (66) Pulse Ox 91 86 Intake and Output 06/22/19 06/22/19 06/23/19 15:00 23:00 07:00 Intake Total 1983 ml Output Total 250 ml 580 ml Balance -250 ml 1403 ml Laboratory Tests Test 06/22/19 10:15 06/22/19 11:16 06/22/19 11:39 06/22/19 16:25 White Blood Count 15.2 10^3/uL Red Blood Count 3.83 10^6/uL Hemoglobin 10.6 g/dL Hematocrit 33.1 % Mean Corpuscular Volume 86.4 fL Mean Corpuscular Hemoglobin 27.7 pg Mean Corpuscular Hemoglobin Concent 32.0 g/dL Red Cell Distribution Width 17.5 % Platelet Count 261 10^3/uL Mean Platelet Volume 9.5 fL Neutrophils (%) (Auto) 81.5 % Lymphocytes (%) (Auto) 8.6 % Monocytes (%) (Auto) 7.7 % Neutrophils # (Auto) 12.4 10^3/uL Lymphocytes # (Auto) 1.3 10^3/uL Monocytes # (Auto) 1.2 10^3/uL Absolute Immature Granulocyte (auto 0.20 10^3 u/L Immature Granulocytes % 1.30 % Eosinophils % 0.6 % Basophils % 0.3 % Basophils # 0.0 10^3/uL Eosinophil Count 0.1 10^3/uL Prothrombin Time 13.6 SEC Prothrombin Time INR (Non-Therap) 1.3 Activated Partial Thromboplast Time 33.2 SEC Sodium Level 131 mmol/L Potassium Level 5.2 mmol/L Chloride Level 98.0 mmol/L Carbon Dioxide Level 24.7 mmol/L Anion Gap 13.5 Blood Urea Nitrogen 62 mg/dL Creatinine 2.01 mg/dL Estimated GFR () 38.7 BUN/Creatinine Ratio 30.0 Glucose Level 158 mg/dL Calcium Level 8.9 mg/dL Total Bilirubin 2.3 mg/dL Aspartate Amino Transf (AST/SGOT) 36 U/L Alanine Aminotransferase (ALT/SGPT) 26 U/L Alkaline Phosphatase 163 U/L Ammonia 18 umol/L Total Creatine Kinase 443 U/L Creatine Kinase MB 3.0 ng/mL Troponin I < 0.02 ng/mL < 0.02 ng/mL Pro-B-Type Natriuretic Peptide 2897 pg/mL Total Protein 7.1 g/dL Albumin 3.5 g/dL Globulin 3.6 Blood Gas Sample Site RB Blood Gas pH 7.440 Blood Gas PCO2 37.2 mmHg Blood Gas PO2 56.0 mmHg Blood Gas HCO3 25.2 mmol/L Blood Gas Base Excess 1.3 mmol/L Roland Test N/A Arterial Blood Oxygen Saturation 88.3 % Deoxyhemoglobin 11.6 % Carboxyhemoglobin 0.7 % Methemoglobin 0.1 % Total Hemoglobin 11.2 % Total Oxygen Concentration 13.8 % Blood Gas Temperature 37 Oxygen Delivery Method (LAB) NASAL CANNULA FiO2 28 % Bicarbonate 26.4 mmol/L Urine Collection Type CATH Urine Color YELLOW Urine Appearance CLOUDY Urine Bilirubin NEGATIVE MG/DL Urine Ketones NEGATIVE Urine Specific [place] 1.010 Urine pH 6 Urine Protein 15 mg/dL Urine Urobilinogen NORMAL Urine Nitrate POSITIVE Urine Leukocyte Esterase 500/uL 2+ Urine Blood 150 3+ Urine RBC TNTC RBC/HPF Urine WBC TNTC WBC/HPF Urine Squamous Epithelial Cells RARE #/HPF Urine Bacteria MANY Urine Glucose NORMAL Test 06/22/19 20:42 06/22/19 22:04 06/23/19 06:08 06/23/19 06:29 Bedside Glucose 124 Troponin I < 0.02 ng/mL White Blood Count 14.6 10^3/uL Red Blood Count 3.26 10^6/uL Hemoglobin 9.0 g/dL Hematocrit 28.3 % Mean Corpuscular Volume 86.8 fL Mean Corpuscular Hemoglobin 27.6 pg Mean Corpuscular Hemoglobin Concent 31.8 g/dL Red Cell Distribution Width 17.3 % Platelet Count 252 10^3/uL Mean Platelet Volume 9.0 fL Neutrophils (%) (Auto) 80.8 % Lymphocytes (%) (Auto) 6.4 % Monocytes (%) (Auto) 10.2 % Neutrophils # (Auto) 11.8 10^3/uL Lymphocytes # (Auto) 0.9 10^3/uL Monocytes # (Auto) 1.5 10^3/uL Absolute Immature Granulocyte (auto 0.19 10^3 u/L Immature Granulocytes % 1.30 % Eosinophils % 1.2 % Basophils % 0.1 % Basophils # 0.0 10^3/uL Eosinophil Count 0.2 10^3/uL Prothrombin Time 12.7 SEC Prothrombin Time INR (Non-Therap) 1.2 Sodium Level 134 mmol/L Potassium Level 4.7 mmol/L Chloride Level 100.0 mmol/L Carbon Dioxide Level 25.5 mmol/L Anion Gap 13.2 Blood Urea Nitrogen 61 mg/dL Creatinine 2.11 mg/dL Estimated GFR () 36.6 BUN/Creatinine Ratio 28.0 Glucose Level 120 mg/dL Calcium Level 8.2 mg/dL Magnesium Level 2.9 mg/dL Total Bilirubin 1.8 mg/dL Aspartate Amino Transf (AST/SGOT) 32 U/L Alanine Aminotransferase (ALT/SGPT) 26 U/L Alkaline Phosphatase 146 U/L Total Protein 6.3 g/dL Albumin 3.2 g/dL Globulin 3.1 Differential Total Cells Counted 100 #CELLS Segmented Neutrophils 80 % Lymphocytes 8 % Monocytes 11 % Absolute Eosinophils (Manual) 1 % Nucleated Red Blood Cells 1 % Platelet Estimate ADEQUATE Platelet Morphology NORMAL Blood Morphology Comment NORMAL MORPHOLOGY Current Medications Medications (Trade) Dose Ordered Sig/Debbie PRN Reason Start Time Stop Time Status Last Admin Atorvastatin Calcium (Lipitor) 5 mg HS 06/22/19 21:00 07/22/19 20:59 06/22/19 20:51 Clopidogrel Bisulfate (Plavix) 75 mg DAILY 06/22/19 16:00 07/22/19 15:59 Dextrose (Dextrose 50%-Water Syringe) 25 ml STAT PRN HYPOGLYCEMIA 06/22/19 15:30 07/22/19 15:29 Insulin Human Regular (Humulin R) Give 30 minutes before meal ACHS 06/22/19 17:30 07/22/19 17:29 Levothyroxine Sodium (Synthroid) 75 mcg ACB 06/23/19 06:30 07/23/19 06:29 06/23/19 06:10 Meropenem 1000 mg/ Sodium Chloride 100 ml @ 200 mls/hr BID 06/22/19 21:00 07/22/19 13:59 06/22/19 20:51 Metoprolol Tartrate (Lopresser) 25 mg BID 06/22/19 21:00 07/22/19 20:59 06/22/19 20:52 Pantoprazole Sodium (Protonix) 40 mg BID 06/22/19 21:00 07/23/19 08:59 06/22/19 20:51 Sodium Chloride 1,000 ml @ 30 mls/hr Q24H 06/22/19 15:30 07/22/19 15:29 06/22/19 18:00 Sodium Chloride 2,098 ml @ 1,049 mls/hr OT 06/22/19 13:00 07/22/19 12:59 Sepsis Infection Criteria Pres: Documented Infection LEVEL 1 SEPSIS INFECTION CRITE: ABX Therapy, Urinary Tract Infection LEVEL 2-SIRS (LIST ALL THAT AP: [id number] Cardiovascular Evidence: Not Assessed or None Hematologic Evidence: None/Not assessed Hepatic Evidence: None/Not assessed Metabolic Evidence: None/Not assessed Neurological Evidence: None/Not assessed Respiratory Evidence: Need for O2 to keep>90% Renal Evidence: Creatinine Lvl>2.0 O2 Sat by Pulse Oximetry: 100 Oxygen Flow Rate: 2.00 Assessment/Plan Assessment/Plan Assessment/Plan 1. UTI/Sepsis/Metabolic Encephalopathy: cont IVF, cont IVF abx. Encephalopathy resolved and patient at baseline mentation. Blood cx positive x 1 but possible contaminant. Will wait for final ID results. Patient pending LTAC placement. Patient will need IV abx x 14 days based on clinical symptoms even if Blood cx ID believed to be contaminant. I discussed with daughter today. 2. PVD: d/c plavix 2/2 bleeding from skin tear and anemia. 3. Afib: cont BB, rate controlled. Holding anticoagulation 2/2 anemia. 4. Heart failure: no diuretics 2/2 sepsis/bacteremia. Vitals stable. 5. HTN: cont BB, holding diuretics 6. Cirrhosis: Ammonia wnl. 7. Hyperbilirubinemia: 2/2 cirrhosis, hemoconcentration. Patient denies pain, nausea. 8. Hyperuricemia: hold Allopurinol 9. PPx: PPI BID, (holding anticoagulation 2/2 drog in Hg.) 10. Elevated BNP: 2/2 EJ and hx of heart failure. 11. DM: SSI to cover 12. EJ: improving. We will increase IVF as tolerated. Aggressive volume resuscitation difficult in this patient 2/2 hx of heart failure/liver failure. 13. Anemia: Hg stable. Cont serial CBC. 14. Skin tear: cont wound care. Dressing in place. Monitor bleeding from lesion. 15. Hyperkalemia: will give IVF bolus this AM and repeat metabolic panel in afternoon. I discussed case with daughter. I recommended Hospice/comfort care and DNR again. Daughter patient not agreeable. I updated daughter that patient is refusing carson to monitor urine output. He is refusing physical therapy. Patient has very guarded prognosis and his appetite PO intake is declining. Patient very critical. Patient is pending LTAC placement for further care. Patient/daughter refused transfer to higher acuity of care. We will continue to care for patient within our scope as best as we can. REYNA RABAGO MD Jun 25, 2019 08:25
[2019-06-25] MEDS: MEROPENEM 1,000 MG in NS 100ML 100 ML IV SCH ×2 (08:48→21:06)
[2019-06-25] MEDS: PROTONIX PO SCH ×2 (08:49→21:05)
[2019-06-25] MEDS: MUCINEX PO SCH ×2 (08:49→21:00)
[2019-06-25] MEDS: LOPRESSER PO SCH ×2 (08:49→21:06)
--- NOTE | 2019-06-25 13:30 | NUR ---
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 PATIENT SITTING UP IN RECLINER WITH O2 ON AT 2L/MIN VIA NASAL CANULA. CALL LIGHT WITHIN EASY REACH.
--- NOTE | 2019-06-25 15:11 | NUR ---
DR. RABAGO, AT BEDSIDE DISCUSSING POC WITH DAUGHTER MICAH REGARDING LTAC.
[2019-06-25 15:53] LABS: BASOPHIL # 0.1 10^3/uL (0.0-0.1); BASOPHIL % 0.3 % (0.0-0.2); EOSINOPHIL # 0.3 10^3/uL (0.0-0.2); EOSINOPHIL % 2.2 % (0.0-5.0); HEMOGLOBIN 8.8 g/dL (13.9-16.3); LYMPHOCYTES # 1.5 10^3/uL (1.0-4.8); LYMPHOCYTES % 10.1 % (24.0-44.0); MEAN CELL HGB 27.5 pg (26-34); MEAN CELL HGB CONCENTRATION 31.8 g/dL (33-37); MEAN CORP VOLUME 86.6 fL (78-100); MEAN PLATELET VOLUME 9.4 fL (7.8-11.0); MONOCYTES # 1.3 10^3/uL (0.3-0.8); MONOCYTES % 8.9 % (5.0-12.0); NEUTROPHIL # 10.8 10^3/uL (1.8-7.7); NEUTROPHILS % 74.2 % (41.0-85.0); RED CELL DISTRIBUTION WIDTH 17.5 % (11.5-14.5); WHITE BLOOD CELL 14.5 10^3/uL (4.5-11.0)
[2019-06-25 16:12] LABS: CALCIUM 8.3 mg/dL (8.4-10.5); CARBON DIOXIDE 19.2 mmol/L (20.0-32)
[2019-06-25] MEDS ORDERED: NS 1000ML 1,000 ML IV ONE (16:30)
--- NOTE | 2019-06-25 19:00 | NUR ---
RECEIVED PATIENT REPORT FROM Gill VALENTINE RN. PATIENT ON SEMI FOWLERS POSITION. CALL LIGHT, IS AND TABLE WITHIN REACH. PATIENT COMPLAINED OF BEING COLD. NOTED INITIAL TEMP 96.5 AX. TAKEN TWICE. WARM BLANKET PROVIDED. WILL RECHECK TEMP ACCORDINGLY. ASSUMED CARE.
--- NOTE | 2019-06-25 20:30 | NUR ---
AGOSTO PATIENT HAD URGENCY TO URINATE, NOTED 100 ML OUT THROUGH THE URINAL 2-3 MINUTES PRIOR TO AGOSTO INSERTION. NOTED MILD DISTENTION UPON PALPATION. EXPLAINED PROCEDURE TO PATIENT. VERBALIZED UNDERSTANDING AND GAVE CONSENT TO PROCEED. INSERTED 16 FR AGOSTO IN USING ASEPTIC TECHNIQUE. UPON INSERTION, IMMEDIATE 250 ML OUT NOTED.
[2019-06-25] MEDS: LIPITOR PO SCH (21:05)
[2019-06-26] VITALS (27 sets, daily range): BP systolic 76–161; BP diastolic 40–87
[2019-06-26 05:50] LABS: BASOPHIL % 0.2 % (0.0-0.2); EOSINOPHIL # 0.2 10^3/uL (0.0-0.2); EOSINOPHIL % 1.4 % (0.0-5.0); HEMOGLOBIN 8.2 g/dL (13.9-16.3); LYMPHOCYTES # 1.7 10^3/uL (1.0-4.8); LYMPHOCYTES % 11.6 % (24.0-44.0); MEAN CELL HGB 27.2 pg (26-34); MEAN CELL HGB CONCENTRATION 31.5 g/dL (33-37); MEAN CORP VOLUME 86.4 fL (78-100); MEAN PLATELET VOLUME 8.7 fL (7.8-11.0); MONOCYTES # 1.4 10^3/uL (0.3-0.8); MONOCYTES % 9.9 % (5.0-12.0); NEUTROPHIL # 10.5 10^3/uL (1.8-7.7); NEUTROPHILS % 72.8 % (41.0-85.0); RED CELL DISTRIBUTION WIDTH 17.4 % (11.5-14.5); WHITE BLOOD CELL 14.5 10^3/uL (4.5-11.0)
[2019-06-26 06:07] LABS: CARBON DIOXIDE 18.8 mmol/L (20.0-32)
[2019-06-26] MEDS: SYNTHROID PO SCH (06:10)
[2019-06-26 07:14] LABS: BAND NEUTROPHILS 1 % (2-6); EOSINOPHIL 1 % (1-4); LYMPHOCYTE 9 % (25-36); MONOCYTE 11 % (3-9); SEGMENTED NEUTROPHILS 77 % (31-76)
--- NOTE | 2019-06-26 07:14 | NUR ---
ENDORSED PATIENT TO Gill VALENTINE RN
[2019-06-26 07:15] LABS: ANISOCYTOSIS 1+ (NEGATIVE)
[2019-06-26] MEDS: HUMULIN R SQ SCH (07:30)
[2019-06-26] MEDS ORDERED: LACTATED RINGERS 1,000 ML IV SCH (08:00)
--- NOTE | 2019-06-26 08:12 | PRM.PN ---
Subjective Subjective Date: Jun 26, 2019 Time: 08:00 Subjective Labs reviewed. Patient pending d/c placement to [facility] v. SNF. I discussed with RN. Awaiting official XR results this AM. VTE VTE Risk Total Score: >5 VTE Risk Score VTE Risk: Score 0-1 = Low Risk (Aggressive mobilization; early ambulation; no VTE prophylaxis required) Score 2: Moderate Risk (Intermittent/Pneumatic Compression Device OR Lovenox/Heparin/Coumadin) Score 3-4: High Risk (Intermittent/Pneumatic Compression Device AND Lovenox/Heparin/Coumadin) Score > or =5: Highest Risk (Intermittent/Pneumatic Compression Device AND Lovenox/Heparin/Coumadin) Review of Systems Allergies: Coded Allergies: saffron (Verified Allergy, Mild, 06/04/18) shrimp (Verified Allergy, Mild, 06/04/18) Scheduled Albuterol Sulfate (Proair Hfa), 8.5 GM IH QID, (Reported) Allopurinol (Allopurinol), 100 MG PO BID, (Reported) Cholestyramine (With Sugar) (Cholestyramine Powder), 378 GM PO PRN, (Reported) Ciprofloxacin Hcl (Cipro), 500 MG PO BID Clopidogrel Bisulfate (Plavix), 75 MG PO DAILY24, (Reported) Levothyroxine Sodium (Levothyroxine Sodium), 1 TAB PO DAILY, (Reported) Lovastatin (Lovastatin), 20 MG PO DAILY24, (Reported) Metoprolol Tartrate 25MG (Lopresser 25MG), 25 MG PO q12, (Reported) Pantoprazole Sodium (Pantoprazole Sodium), 40 MG PO DAILY24, (Reported) Potassium Chloride (Potassium Chloride), 10 MEQ PO BID, (Reported) Potassium Chloride (Potassium Chloride), 1 TAB PO BID, (Reported) Prednisone (Prednisone), 5 MG PO DAILY24, (Reported) Rivaroxaban (Xarelto), 2.5 MG PO BID, (Reported) Spironolactone (Spironolactone), 25 MG PO DAILY24, (Reported) Sucralfate (Carafate), 10 MILLILITER PO BID, (Reported) Torsemide (Torsemide), 20 MG PO TID, (Reported) Umeclidinium Brm/Vilanterol Tr (Anoro Ellipta 62.5-25 Mcg INH), 1 EACH IH DAILY24, (Reported) Objective Vitals and I/O Vital Sign - Last 24 Hours 06/22/19 06/22/19 06/22/19 06/22/19 10:00 10:20 10:21 11:42 Temp 97.5 97.5 Pulse 67 67 73 Resp 20 20 20 18 B/P (MAP) 124/50 (74) 116/62 (80) Pulse Ox 90 90 90 O2 Delivery Room Air Room Air Room Air 06/22/19 06/22/19 06/22/19 06/22/19 12:31 14:04 14:15 14:30 Temp 97.5 Pulse 62 66 65 68 Resp 16 B/P (MAP) 119/77 (91) 106/56 (73) 124/70 (88) 114/58 (76) Pulse Ox 95 96 O2 Delivery Room Air O2 Flow Rate 2.00 06/22/19 06/22/19 06/22/19 06/22/19 14:33 16:34 16:45 17:00 Pulse 64 64 61 B/P (MAP) 114/65 (81) 111/56 (74) 111/57 (75) O2 Delivery Nasal Cannula O2 Flow Rate 2.00 06/22/19 06/22/19 06/22/19 06/22/19 17:15 17:30 17:45 18:01 Temp 98.2 Pulse 61 60 68 66 B/P (MAP) 97/66 (76) 104/73 (83) 109/46 (67) 131/58 (82) Pulse Ox 90 97 99 06/22/19 06/22/19 06/22/19 06/22/19 18:25 18:31 18:45 19:00 Temp 97.4 Pulse 71 69 66 B/P (MAP) 88/57 (67) 113/59 (77) 110/57 (74) 06/22/19 06/22/19 06/22/19 06/22/19 19:02 19:15 19:30 19:45 Pulse 71 69 70 61 Resp 18 B/P (MAP) 131/81 (98) 104/70 (81) 112/45 (67) 110/55 (73) 06/22/19 06/22/19 06/22/19 06/22/19 20:00 20:15 20:41 20:45 Pulse 67 68 66 84 Resp 18 B/P (MAP) 101/58 (72) 124/52 (76) 99/56 (70) 105/56 (72) Pulse Ox 93 98 100 06/22/19 06/22/19 06/22/19 06/22/19 20:52 21:00 21:13 21:15 Pulse 68 65 62 Resp 20 B/P (MAP) 105/56 119/50 (73) 89/62 (71) Pulse Ox 99 99 O2 Delivery Nasal Cannula O2 Flow Rate 2.00 06/22/19 06/22/19 06/22/19 06/22/19 21:30 21:45 22:01 22:15 Pulse 75 67 63 61 Resp 18 B/P (MAP) 104/66 (79) 105/51 (69) 117/51 (73) 87/50 (62) Pulse Ox 99 99 91 06/22/19 06/22/19 06/22/19 06/22/19 22:30 22:33 22:34 22:45 Pulse 63 65 67 70 B/P (MAP) 83/47 (59) 87/37 (54) 92/46 (61) 104/54 (71) Pulse Ox 98 100 99 06/22/19 06/22/19 06/22/19 06/22/19 23:01 23:15 23:30 23:46 Temp 98.0 Pulse 66 65 62 74 Resp 18 B/P (MAP) 133/66 (88) 102/36 (58) 101/58 (72) 105/59 (74) Pulse Ox 100 92 93 06/23/19 06/23/19 06/23/19 06/23/19 00:02 00:05 00:15 00:30 Pulse 71 69 66 Resp 18 B/P (MAP) 101/66 (78) 131/46 (74) 103/72 (82) Pulse Ox 90 O2 Delivery Nasal Cannula O2 Flow Rate 2.00 06/23/19 06/23/19 06/23/19 06/23/19 00:45 01:00 01:16 01:30 Pulse 66 66 67 67 Resp 16 B/P (MAP) 111/47 (68) 107/60 (76) 105/53 (70) 93/52 (66) Pulse Ox 97 99 89 11/7/19 06/23/19 06/23/19 06/23/19 01:48 02:00 02:15 02:30 Pulse 70 109 63 60 Resp 18 B/P (MAP) 94/51 (65) 94/50 (65) 108/62 (77) 103/48 (66) Pulse Ox 97 97 06/23/19 06/23/19 06/23/19 06/23/19 02:45 03:00 03:15 03:31 Pulse 64 72 67 67 Resp 16 B/P (MAP) 108/51 (70) 89/58 (68) 91/61 (71) 97/35 (55) Pulse Ox 98 95 99 93 06/23/19 06/23/19 06/23/19 06/23/19 03:46 04:00 04:08 04:15 Temp 97.5 Pulse 66 66 62 Resp 18 B/P (MAP) 93/41 (58) 105/58 (74) 100/50 (67) Pulse Ox 97 93 O2 Delivery Nasal Cannula O2 Flow Rate 2.00 06/23/19 06/23/19 06/23/19 06/23/19 04:31 04:56 05:01 05:15 Pulse 63 69 60 63 Resp 18 B/P (MAP) 93/38 (56) 116/75 (89) 99/51 (67) 110/49 (69) Pulse Ox 91 96 06/23/19 06/23/19 06/23/19 06/23/19 05:30 05:46 06:00 06:15 Pulse 58 70 64 63 B/P (MAP) 92/46 (61) 105/52 (69) 103/49 (67) 106/57 (73) Pulse Ox 78 100 06/23/19 06/23/19 06/23/19 06:30 06:45 07:00 Pulse 62 67 67 Resp 18 B/P (MAP) 114/56 (75) 109/57 (74) 99/50 (66) Pulse Ox 91 86 Intake and Output 06/22/19 06/22/19 06/23/19 15:00 23:00 07:00 Intake Total 1983 ml Output Total 250 ml 580 ml Balance -250 ml 1403 ml General: Alert, Cooperative, No acute distress HEENT: Atraumatic, PERRLA, EOMI, Mucous membr. moist/pink, Other (Upper airway congestion) Neck: Supple, No JVD Lungs: Clear to auscultation, Normal air movement Heart: Normal S1, Normal S2 Abdomen: Normal bowel sounds, Soft, Other (Abdominal distension, but not increasing) Extremities: Normal pulses, Other (abrasion/skin tear of LUE) Skin: Other (xerosis bilaterally, venous stasis changes) Neuro: Normal speech, Strength at 5/5 X4 ext, Normal tone, Sensation intact, Cranial nerves 3-12 NL Psych/Mental Status: Mental status NL, Mood NL All Results(Lab/Rad) Laboratory Tests Test 06/22/19 10:15 06/22/19 11:16 06/22/19 11:39 06/22/19 16:25 White Blood Count 15.2 10^3/uL Red Blood Count 3.83 10^6/uL Hemoglobin 10.6 g/dL Hematocrit 33.1 % Mean Corpuscular Volume 86.4 fL Mean Corpuscular Hemoglobin 27.7 pg Mean Corpuscular Hemoglobin Concent 32.0 g/dL Red Cell Distribution Width 17.5 % Platelet Count 261 10^3/uL Mean Platelet Volume 9.5 fL Neutrophils (%) (Auto) 81.5 % Lymphocytes (%) (Auto) 8.6 % Monocytes (%) (Auto) 7.7 % Neutrophils # (Auto) 12.4 10^3/uL Lymphocytes # (Auto) 1.3 10^3/uL Monocytes # (Auto) 1.2 10^3/uL Absolute Immature Granulocyte (auto 0.20 10^3 u/L Immature Granulocytes % 1.30 % Eosinophils % 0.6 % Basophils % 0.3 % Basophils # 0.0 10^3/uL Eosinophil Count 0.1 10^3/uL Prothrombin Time 13.6 SEC Prothrombin Time INR (Non-Therap) 1.3 Activated Partial Thromboplast Time 33.2 SEC Sodium Level 131 mmol/L Potassium Level 5.2 mmol/L Chloride Level 98.0 mmol/L Carbon Dioxide Level 24.7 mmol/L Anion Gap 13.5 Blood Urea Nitrogen 62 mg/dL Creatinine 2.01 mg/dL Estimated GFR () 38.7 BUN/Creatinine Ratio 30.0 Glucose Level 158 mg/dL Calcium Level 8.9 mg/dL Total Bilirubin 2.3 mg/dL Aspartate Amino Transf (AST/SGOT) 36 U/L Alanine Aminotransferase (ALT/SGPT) 26 U/L Alkaline Phosphatase 163 U/L Ammonia 18 umol/L Total Creatine Kinase 443 U/L Creatine Kinase MB 3.0 ng/mL Troponin I < 0.02 ng/mL < 0.02 ng/mL Pro-B-Type Natriuretic Peptide 2897 pg/mL Total Protein 7.1 g/dL Albumin 3.5 g/dL Globulin 3.6 Blood Gas Sample Site RB Blood Gas pH 7.440 Blood Gas PCO2 37.2 mmHg Blood Gas PO2 56.0 mmHg Blood Gas HCO3 25.2 mmol/L Blood Gas Base Excess 1.3 mmol/L Roland Test N/A Arterial Blood Oxygen Saturation 88.3 % Deoxyhemoglobin 11.6 % Carboxyhemoglobin 0.7 % Methemoglobin 0.1 % Total Hemoglobin 11.2 % Total Oxygen Concentration 13.8 % Blood Gas Temperature 37 Oxygen Delivery Method (LAB) NASAL CANNULA FiO2 28 % Bicarbonate 26.4 mmol/L Urine Collection Type CATH Urine Color YELLOW Urine Appearance CLOUDY Urine Bilirubin NEGATIVE MG/DL Urine Ketones NEGATIVE Urine Specific [place] 1.010 Urine pH 6 Urine Protein 15 mg/dL Urine Urobilinogen NORMAL Urine Nitrate POSITIVE Urine Leukocyte Esterase 500/uL 2+ Urine Blood 150 3+ Urine RBC TNTC RBC/HPF Urine WBC TNTC WBC/HPF Urine Squamous Epithelial Cells RARE #/HPF Urine Bacteria MANY Urine Glucose NORMAL Test 06/22/19 20:42 06/22/19 22:04 06/23/19 06:08 06/23/19 06:29 Bedside Glucose 124 Troponin I < 0.02 ng/mL White Blood Count 14.6 10^3/uL Red Blood Count 3.26 10^6/uL Hemoglobin 9.0 g/dL Hematocrit 28.3 % Mean Corpuscular Volume 86.8 fL Mean Corpuscular Hemoglobin 27.6 pg Mean Corpuscular Hemoglobin Concent 31.8 g/dL Red Cell Distribution Width 17.3 % Platelet Count 252 10^3/uL Mean Platelet Volume 9.0 fL Neutrophils (%) (Auto) 80.8 % Lymphocytes (%) (Auto) 6.4 % Monocytes (%) (Auto) 10.2 % Neutrophils # (Auto) 11.8 10^3/uL Lymphocytes # (Auto) 0.9 10^3/uL Monocytes # (Auto) 1.5 10^3/uL Absolute Immature Granulocyte (auto 0.19 10^3 u/L Immature Granulocytes % 1.30 % Eosinophils % 1.2 % Basophils % 0.1 % Basophils # 0.0 10^3/uL Eosinophil Count 0.2 10^3/uL Prothrombin Time 12.7 SEC Prothrombin Time INR (Non-Therap) 1.2 Sodium Level 134 mmol/L Potassium Level 4.7 mmol/L Chloride Level 100.0 mmol/L Carbon Dioxide Level 25.5 mmol/L Anion Gap 13.2 Blood Urea Nitrogen 61 mg/dL Creatinine 2.11 mg/dL Estimated GFR () 36.6 BUN/Creatinine Ratio 28.0 Glucose Level 120 mg/dL Calcium Level 8.2 mg/dL Magnesium Level 2.9 mg/dL Total Bilirubin 1.8 mg/dL Aspartate Amino Transf (AST/SGOT) 32 U/L Alanine Aminotransferase (ALT/SGPT) 26 U/L Alkaline Phosphatase 146 U/L Total Protein 6.3 g/dL Albumin 3.2 g/dL Globulin 3.1 Differential Total Cells Counted 100 #CELLS Segmented Neutrophils 80 % Lymphocytes 8 % Monocytes 11 % Absolute Eosinophils (Manual) 1 % Nucleated Red Blood Cells 1 % Platelet Estimate ADEQUATE Platelet Morphology NORMAL Blood Morphology Comment NORMAL MORPHOLOGY Current Medications Medications (Trade) Dose Ordered Sig/Debbie Route PRN Reason Start Time Stop Time Status Last Admin Dose Admin Sodium Chloride 1,000 ml @ 0 mls/hr Q0M ONCE IV 06/22/19 10:30 06/22/19 10:31 DC 06/22/19 10:39 Sodium Chloride 1,000 ml @ 0 mls/hr Q0M ONCE IV 06/22/19 10:24 06/22/19 10:26 DC Diphtheria/ Tetanus/Acell Pertussis (Adacel Vial) 0.5 ml ONCE ONCE IM 06/22/19 11:00 06/22/19 11:01 DC 06/22/19 11:04 Sodium Chloride 1,000 ml @ ud STK-MED ONCE .ROUTE 06/22/19 10:37 06/22/19 10:39 DC Diphtheria/ Tetanus/Acell Pertussis (Adacel Vial) 0.5 ml STK-MED ONCE IM 06/22/19 10:37 06/22/19 10:40 DC Meropenem 500 mg/ Sodium Chloride 100 ml @ 200 mls/hr Q8 IV 06/22/19 14:00 06/22/19 15:17 DC 06/22/19 13:02 Sodium Chloride 2,098 ml @ 1,049 mls/hr OT IV 06/22/19 13:00 07/22/19 12:59 Sodium Chloride 100 ml @ ud STK-MED ONCE IV 06/22/19 12:39 06/22/19 12:41 DC Pantoprazole Sodium (Protonix) 40 mg DAILY PO 06/23/19 09:00 06/22/19 15:18 DC Sodium Chloride 1,000 ml @ 30 mls/hr Q24H IV 06/22/19 15:30 07/22/19 15:29 06/22/19 18:00 Meropenem 1000 mg/ Sodium Chloride 100 ml @ 200 mls/hr BID IV 06/22/19 21:00 07/22/19 13:59 06/22/19 20:51 Pantoprazole Sodium (Protonix) 40 mg BID PO 06/22/19 21:00 07/23/19 08:59 06/22/19 20:51 Insulin Human Regular (Humulin R) Give 30 minutes before meal ACHS SQ 06/22/19 17:30 07/22/19 17:29 Dextrose (Dextrose 50%-Water Syringe) 25 ml STAT PRN IV HYPOGLYCEMIA 06/22/19 15:30 07/22/19 15:29 Sodium Chloride 1,000 ml @ ud STK-MED ONCE .ROUTE 06/22/19 15:52 06/22/19 15:54 DC Clopidogrel Bisulfate (Plavix) 75 mg DAILY PO 06/22/19 16:00 07/22/19 15:59 Levothyroxine Sodium (Synthroid) 75 mcg ACB PO 06/23/19 06:30 07/23/19 06:29 06/23/19 06:10 Atorvastatin Calcium (Lipitor) 5 mg HS PO 06/22/19 21:00 07/22/19 20:59 06/22/19 20:51 Metoprolol Tartrate (Lopresser) 25 mg BID PO 06/22/19 21:00 07/22/19 20:59 06/22/19 20:52 Sterile Water (Water) 1,000 ml STK-MED ONCE .ROUTE 06/22/19 17:43 06/22/19 17:45 DC Metoprolol Tartrate (Lopresser) 25 mg STK-MED ONCE .ROUTE 06/22/19 20:43 06/22/19 20:45 DC Atorvastatin Calcium (Lipitor) 10 mg STK-MED ONCE .ROUTE 06/22/19 20:44 06/22/19 20:46 DC Pantoprazole Sodium (Protonix) 40 mg STK-MED ONCE PO 06/22/19 20:44 06/22/19 20:46 DC Sodium Chloride 500 ml @ 500 mls/hr Q1H ONCE IV 06/22/19 23:30 06/23/19 01:06 DC 06/22/19 23:30 Levothyroxine Sodium (Synthroid) 75 mcg STK-MED ONCE .ROUTE 06/23/19 05:33 06/23/19 05:35 DC Course Sepsis Screening Results: Posi: POSITIVE Sepsis Qualifier/Stage: SEPSIS RISK Duration or Total Time Spent w: 15 Vitals & review Data Vital Sign - Last 24 Hours 06/22/19 06/22/19 06/22/19 06/22/19 10:00 10:20 10:21 11:42 Temp 97.5 97.5 Pulse 67 67 73 Resp 20 20 20 18 B/P (MAP) 124/50 (74) 116/62 (80) Pulse Ox 90 90 90 O2 Delivery Room Air Room Air Room Air 06/22/19 06/22/19 06/22/19 06/22/19 12:31 14:04 14:15 14:30 Temp 97.5 Pulse 62 66 65 68 Resp 16 B/P (MAP) 119/77 (91) 106/56 (73) 124/70 (88) 114/58 (76) Pulse Ox 95 96 O2 Delivery Room Air O2 Flow Rate 2.00 06/22/19 06/22/19 06/22/19 06/22/19 14:33 16:34 16:45 17:00 Pulse 64 64 61 B/P (MAP) 114/65 (81) 111/56 (74) 111/57 (75) O2 Delivery Nasal Cannula O2 Flow Rate 2.00 06/22/19 06/22/19 06/22/19 06/22/19 17:15 17:30 17:45 18:01 Temp 98.2 Pulse 61 60 68 66 B/P (MAP) 97/66 (76) 104/73 (83) 109/46 (67) 131/58 (82) Pulse Ox 90 97 99 06/22/19 06/22/19 06/22/19 06/22/19 18:25 18:31 18:45 19:00 Temp 97.4 Pulse 71 69 66 B/P (MAP) 88/57 (67) 113/59 (77) 110/57 (74) 06/22/19 06/22/19 06/22/19 06/22/19 19:02 19:15 19:30 19:45 Pulse 71 69 70 61 Resp 18 B/P (MAP) 131/81 (98) 104/70 (81) 112/45 (67) 110/55 (73) 06/22/19 06/22/19 06/22/19 06/22/19 20:00 20:15 20:41 20:45 Pulse 67 68 66 84 Resp 18 B/P (MAP) 101/58 (72) 124/52 (76) 99/56 (70) 105/56 (72) Pulse Ox 93 98 100 06/22/19 06/22/19 06/22/19 06/22/19 20:52 21:00 21:13 21:15 Pulse 68 65 62 Resp 20 B/P (MAP) 105/56 119/50 (73) 89/62 (71) Pulse Ox 99 99 O2 Delivery Nasal Cannula O2 Flow Rate 2.00 06/22/19 06/22/19 06/22/19 06/22/19 21:30 21:45 22:01 22:15 Pulse 75 67 63 61 Resp 18 B/P (MAP) 104/66 (79) 105/51 (69) 117/51 (73) 87/50 (62) Pulse Ox 99 99 91 06/22/19 06/22/19 06/22/19 06/22/19 22:30 22:33 22:34 22:45 Pulse 63 65 67 70 B/P (MAP) 83/47 (59) 87/37 (54) 92/46 (61) 104/54 (71) Pulse Ox 98 100 99 06/22/19 06/22/19 06/22/19 06/22/19 23:01 23:15 23:30 23:46 Temp 98.0 Pulse 66 65 62 74 Resp 18 B/P (MAP) 133/66 (88) 102/36 (58) 101/58 (72) 105/59 (74) Pulse Ox 100 92 93 06/23/19 06/23/19 06/23/19 06/23/19 00:02 00:05 00:15 00:30 Pulse 71 69 66 Resp 18 B/P (MAP) 101/66 (78) 131/46 (74) 103/72 (82) Pulse Ox 90 O2 Delivery Nasal Cannula O2 Flow Rate 2.00 06/23/19 06/23/19 06/23/19 06/23/19 00:45 01:00 01:16 01:30 Pulse 66 66 67 67 Resp 16 B/P (MAP) 111/47 (68) 107/60 (76) 105/53 (70) 93/52 (66) Pulse Ox 97 99 89 06/23/19 06/23/19 06/23/19 06/23/19 01:48 02:00 02:15 02:30 Pulse 70 109 63 60 Resp 18 B/P (MAP) 94/51 (65) 94/50 (65) 108/62 (77) 103/48 (66) Pulse Ox 97 97 06/23/19 06/23/19 06/23/19 06/23/19 02:45 03:00 03:15 03:31 Pulse 64 72 67 67 Resp 16 B/P (MAP) 108/51 (70) 89/58 (68) 91/61 (71) 97/35 (55) Pulse Ox 98 95 99 93 06/23/19 06/23/19 06/23/19 06/23/19 03:46 04:00 04:08 04:15 Temp 97.5 Pulse 66 66 62 Resp 18 B/P (MAP) 93/41 (58) 105/58 (74) 100/50 (67) Pulse Ox 97 93 O2 Delivery Nasal Cannula O2 Flow Rate 2.00 06/23/19 06/23/19 06/23/19 06/23/19 04:31 04:56 05:01 05:15 Pulse 63 69 60 63 Resp 18 B/P (MAP) 93/38 (56) 116/75 (89) 99/51 (67) 110/49 (69) Pulse Ox 91 96 06/23/19 06/23/19 06/23/19 06/23/19 05:30 05:46 06:00 06:15 Pulse 58 70 64 63 B/P (MAP) 92/46 (61) 105/52 (69) 103/49 (67) 106/57 (73) Pulse Ox 78 100 06/23/19 06/23/19 06/23/19 06:30 06:45 07:00 Pulse 62 67 67 Resp 18 B/P (MAP) 114/56 (75) 109/57 (74) 99/50 (66) Pulse Ox 91 86 Intake and Output 06/22/19 06/22/19 06/23/19 15:00 23:00 07:00 Intake Total 1983 ml Output Total 250 ml 580 ml Balance -250 ml 1403 ml Laboratory Tests Test 06/22/19 10:15 06/22/19 11:16 06/22/19 11:39 06/22/19 16:25 White Blood Count 15.2 10^3/uL Red Blood Count 3.83 10^6/uL Hemoglobin 10.6 g/dL Hematocrit 33.1 % Mean Corpuscular Volume 86.4 fL Mean Corpuscular Hemoglobin 27.7 pg Mean Corpuscular Hemoglobin Concent 32.0 g/dL Red Cell Distribution Width 17.5 % Platelet Count 261 10^3/uL Mean Platelet Volume 9.5 fL Neutrophils (%) (Auto) 81.5 % Lymphocytes (%) (Auto) 8.6 % Monocytes (%) (Auto) 7.7 % Neutrophils # (Auto) 12.4 10^3/uL Lymphocytes # (Auto) 1.3 10^3/uL Monocytes # (Auto) 1.2 10^3/uL Absolute Immature Granulocyte (auto 0.20 10^3 u/L Immature Granulocytes % 1.30 % Eosinophils % 0.6 % Basophils % 0.3 % Basophils # 0.0 10^3/uL Eosinophil Count 0.1 10^3/uL Prothrombin Time 13.6 SEC Prothrombin Time INR (Non-Therap) 1.3 Activated Partial Thromboplast Time 33.2 SEC Sodium Level 131 mmol/L Potassium Level 5.2 mmol/L Chloride Level 98.0 mmol/L Carbon Dioxide Level 24.7 mmol/L Anion Gap 13.5 Blood Urea Nitrogen 62 mg/dL Creatinine 2.01 mg/dL Estimated GFR () 38.7 BUN/Creatinine Ratio 30.0 Glucose Level 158 mg/dL Calcium Level 8.9 mg/dL Total Bilirubin 2.3 mg/dL Aspartate Amino Transf (AST/SGOT) 36 U/L Alanine Aminotransferase (ALT/SGPT) 26 U/L Alkaline Phosphatase 163 U/L Ammonia 18 umol/L Total Creatine Kinase 443 U/L Creatine Kinase MB 3.0 ng/mL Troponin I < 0.02 ng/mL < 0.02 ng/mL Pro-B-Type Natriuretic Peptide 2897 pg/mL Total Protein 7.1 g/dL Albumin 3.5 g/dL Globulin 3.6 Blood Gas Sample Site RB Blood Gas pH 7.440 Blood Gas PCO2 37.2 mmHg Blood Gas PO2 56.0 mmHg Blood Gas HCO3 25.2 mmol/L Blood Gas Base Excess 1.3 mmol/L Roland Test N/A Arterial Blood Oxygen Saturation 88.3 % Deoxyhemoglobin 11.6 % Carboxyhemoglobin 0.7 % Methemoglobin 0.1 % Total Hemoglobin 11.2 % Total Oxygen Concentration 13.8 % Blood Gas Temperature 37 Oxygen Delivery Method (LAB) NASAL CANNULA FiO2 28 % Bicarbonate 26.4 mmol/L Urine Collection Type CATH Urine Color YELLOW Urine Appearance CLOUDY Urine Bilirubin NEGATIVE MG/DL Urine Ketones NEGATIVE Urine Specific [place] 1.010 Urine pH 6 Urine Protein 15 mg/dL Urine Urobilinogen NORMAL Urine Nitrate POSITIVE Urine Leukocyte Esterase 500/uL 2+ Urine Blood 150 3+ Urine RBC TNTC RBC/HPF Urine WBC TNTC WBC/HPF Urine Squamous Epithelial Cells RARE #/HPF Urine Bacteria MANY Urine Glucose NORMAL Test 06/22/19 20:42 06/22/19 22:04 06/23/19 06:08 06/23/19 06:29 Bedside Glucose 124 Troponin I < 0.02 ng/mL White Blood Count 14.6 10^3/uL Red Blood Count 3.26 10^6/uL Hemoglobin 9.0 g/dL Hematocrit 28.3 % Mean Corpuscular Volume 86.8 fL Mean Corpuscular Hemoglobin 27.6 pg Mean Corpuscular Hemoglobin Concent 31.8 g/dL Red Cell Distribution Width 17.3 % Platelet Count 252 10^3/uL Mean Platelet Volume 9.0 fL Neutrophils (%) (Auto) 80.8 % Lymphocytes (%) (Auto) 6.4 % Monocytes (%) (Auto) 10.2 % Neutrophils # (Auto) 11.8 10^3/uL Lymphocytes # (Auto) 0.9 10^3/uL Monocytes # (Auto) 1.5 10^3/uL Absolute Immature Granulocyte (auto 0.19 10^3 u/L Immature Granulocytes % 1.30 % Eosinophils % 1.2 % Basophils % 0.1 % Basophils # 0.0 10^3/uL Eosinophil Count 0.2 10^3/uL Prothrombin Time 12.7 SEC Prothrombin Time INR (Non-Therap) 1.2 Sodium Level 134 mmol/L Potassium Level 4.7 mmol/L Chloride Level 100.0 mmol/L Carbon Dioxide Level 25.5 mmol/L Anion Gap 13.2 Blood Urea Nitrogen 61 mg/dL Creatinine 2.11 mg/dL Estimated GFR () 36.6 BUN/Creatinine Ratio 28.0 Glucose Level 120 mg/dL Calcium Level 8.2 mg/dL Magnesium Level 2.9 mg/dL Total Bilirubin 1.8 mg/dL Aspartate Amino Transf (AST/SGOT) 32 U/L Alanine Aminotransferase (ALT/SGPT) 26 U/L Alkaline Phosphatase 146 U/L Total Protein 6.3 g/dL Albumin 3.2 g/dL Globulin 3.1 Differential Total Cells Counted 100 #CELLS Segmented Neutrophils 80 % Lymphocytes 8 % Monocytes 11 % Absolute Eosinophils (Manual) 1 % Nucleated Red Blood Cells 1 % Platelet Estimate ADEQUATE Platelet Morphology NORMAL Blood Morphology Comment NORMAL MORPHOLOGY Current Medications Medications (Trade) Dose Ordered Sig/Debbie PRN Reason Start Time Stop Time Status Last Admin Atorvastatin Calcium (Lipitor) 5 mg HS 06/22/19 21:00 07/22/19 20:59 06/22/19 20:51 Clopidogrel Bisulfate (Plavix) 75 mg DAILY 06/22/19 16:00 07/22/19 15:59 Dextrose (Dextrose 50%-Water Syringe) 25 ml STAT PRN HYPOGLYCEMIA 06/22/19 15:30 07/22/19 15:29 Insulin Human Regular (Humulin R) Give 30 minutes before meal ACHS 06/22/19 17:30 07/22/19 17:29 Levothyroxine Sodium (Synthroid) 75 mcg ACB 06/23/19 06:30 07/23/19 06:29 06/23/19 06:10 Meropenem 1000 mg/ Sodium Chloride 100 ml @ 200 mls/hr BID 06/22/19 21:00 07/22/19 13:59 06/22/19 20:51 Metoprolol Tartrate (Lopresser) 25 mg BID 11/6/19 21:00 07/22/19 20:59 06/22/19 20:52 Pantoprazole Sodium (Protonix) 40 mg BID 06/22/19 21:00 07/23/19 08:59 06/22/19 20:51 Sodium Chloride 1,000 ml @ 30 mls/hr Q24H 06/22/19 15:30 07/22/19 15:29 06/22/19 18:00 Sodium Chloride 2,098 ml @ 1,049 mls/hr OT 06/22/19 13:00 07/22/19 12:59 Sepsis Infection Criteria Pres: Documented Infection LEVEL 1 SEPSIS INFECTION CRITE: ABX Therapy, Urinary Tract Infection LEVEL 2-SIRS (LIST ALL THAT AP: [id number] Cardiovascular Evidence: Not Assessed or None Hematologic Evidence: None/Not assessed Hepatic Evidence: None/Not assessed Metabolic Evidence: None/Not assessed Neurological Evidence: None/Not assessed Respiratory Evidence: Need for O2 to keep>90% Renal Evidence: Creatinine Lvl>2.0 O2 Sat by Pulse Oximetry: 98 Oxygen Flow Rate: 2.00 Assessment/Plan Assessment/Plan Assessment/Plan 1. UTI/Sepsis/Metabolic Encephalopathy: cont IVF, IV abx. Guarded prognosis and Hospice has been recommended. Persistent Acidosis 2/2 Hepatorenal syndrome. We are limiting on how aggressive we can be with IVF. I have discussed with patient/daughter/RN. Cont current treatment. 2. PVD: d/c plavix 2/2 bleeding from skin tear and anemia. 3. Afib: cont BB, rate controlled. Holding anticoagulation 2/2 anemia. 4. Heart failure: no diuretics 2/2 sepsis/bacteremia. Vitals stable. 5. HTN: cont BB, holding diuretics 6. Cirrhosis: Ammonia wnl. 7. Hyperbilirubinemia: 2/2 cirrhosis, hemoconcentration. Patient denies pain, nausea. 8. Hyperuricemia: hold Allopurinol 9. PPx: PPI BID, (holding anticoagulation 2/2 drog in Hg.) 10. Elevated BNP: 2/2 EJ and hx of heart failure. 11. DM: SSI to cover 12. EJ: mild improvement. Cont IVF. 13. Anemia: Hg dropped to low 8. Check retic count. Transfuse if needed. 14. Skin tear: cont wound care. Dressing in place. Monitor bleeding from lesion. 15. Hyperkalemia: Will increase IVF minimally. Patient will not allow carson. REYNA RABAGO MD Jun 26, 2019 08:12
[2019-06-26] MEDS ORDERED: MUCINEX PO SCH (09:00)
[2019-06-26] MEDS: MUCINEX PO SCH (09:04)
[2019-06-26] MEDS: PROTONIX PO SCH (09:04)
[2019-06-26] MEDS: MEROPENEM 1,000 MG in NS 100ML 100 ML IV SCH (09:04)
[2019-06-26] MEDS: LOPRESSER PO SCH (09:05)
[2019-06-26] MEDS: XOPENEX IH SCH ×2 (09:13→14:51)
--- NOTE | 2019-06-26 11:59 | DIREP ---
PROCEDURE:CHEST 1 VIEW COMPARISON:[facility], CR, XRAY CHEST SINGLE VW, 06/24/2019, 06:52 AM. [facility], CR, XRAY CHEST SINGLE VW, 06/22/2019, 10:35 AM. INDICATIONS:sepsis FINDINGS: LUNGS/PLEURA:No consolidation. VASCULATURE:Normal. Unremarkable pulmonary vasculature. CARDIAC:Cardiomegaly unchanged MEDIASTINUM:Normal. No visible mass or adenopathy. BONES:Normal. No fracture or visible bony lesion. OTHER:Negative. CONCLUSION:No consolidation. No change in cardiomegaly. Dictated by: Chan Camacho MD on 06/26/2019 at 11:57 AM
[2019-06-26] MEDS ORDERED: PANT40TA3 PO (14:50)
[2019-06-26] MEDS ORDERED: GUAI600T31 PO (14:50)
[2019-06-26] MEDS ORDERED: LEVA0.6320 IH (14:50)
--- NOTE | 2019-06-26 14:58 | PRM.DC ---
Discharge Summary Date of Discharge: Jun 26, 2019 Time of Request to Discharge: 14:45 Reason for Visit: Mechanical fall Hospital Course Patient was admitted with metabolic encephalopathy following a mechanical fall were he suffered skin tears with substantial bleeding. Patient was found to be septic. He was started on IVF, IV abx, and blood cx ordered. Patient encephalopathy improved but he is very ill and chronically sick. I discussed with patient/daughter who is MPOA that patient needed to be transferred to higher acuity of care. Patient also Hospice candidate. Family did not agree. I informed family that we do not have Nephrology/GI specialist to consult @ [facility]. Daughter/patient requested that we try to keep here and treat the best we can. Patient was started on IV abx. Blood cx returned positive x 1. Midline placed and patient continued on IV abx and IVF. Patient slowly improved but does not eat well, he refused therapy multiple times, and was very tired. His urine output and kidney functioned improved slowly; however, patient continued to have worsening AG metabolic acidosis. IVF were given and patient had serial lab monitoring. Patient BP remained stable and MAP above 65. Given his worsening acidosis I notified daughter that patient needed higher level of care. She was agreeable to transfer which was initiated. [place] accepted patient (Dr. Guzmán). Patient transferred by ambulance. On arrival, patient had BP that registered low. Ambulance inquired prior to leaving. Because of dressing over arm from skin tear, patient had BP checked on wrist and believed to be inaccurate. BP from hospitalization reviewed and patient's MAP remained above 65 and in the last 24 hours BP was running on higher side. Ambulance rechecked in vehicle prior to leaving for [place] and their recheck was 131/85. I called and notified Dr. Guzmán about the circumstances. General: Alert, Cooperative, No acute distress HEENT: Atraumatic, PERRLA, EOMI, Mucous membr. moist/pink Neck: Supple, No JVD Lungs: Clear to auscultation, Normal air movement, Other (Patient has upper airway congestion but no wheezing.) Heart: Normal S1, Normal S2 Abdomen: Other (distended abdomen, unchanged during hospitalization.) Extremities: Normal pulses Skin: Other (wounds of upper extremiy dressings in place) Neuro: Normal speech, Normal tone, Cranial nerves 3-12 NL Psych/Mental Status: Mental status NL, Mood NL, Other (patient very fatigued/tired) Scheduled Albuterol Sulfate (Proair Hfa), 8.5 GM IH QID, (Reported) Allopurinol (Allopurinol), 100 MG PO BID, (Reported) Cholestyramine (With Sugar) (Cholestyramine Powder), 378 GM PO PRN, (Reported) Ciprofloxacin Hcl (Cipro), 500 MG PO BID Clopidogrel Bisulfate (Plavix), 75 MG PO DAILY24, (Reported) Guaifenesin (Mucinex), 600 MG PO BID Levalbuterol Hcl (Xopenex), 0.63 MG IH RTQ6 Levothyroxine Sodium (Levothyroxine Sodium), 1 TAB PO DAILY, (Reported) Lovastatin (Lovastatin), 20 MG PO DAILY24, (Reported) Metoprolol Tartrate 25MG (Lopresser 25MG), 25 MG PO q12, (Reported) Pantoprazole Sodium (Pantoprazole Sodium), 40 MG PO DAILY24, (Reported) Pantoprazole Sodium (Protonix), 40 MG PO BID Potassium Chloride (Potassium Chloride), 10 MEQ PO BID, (Reported) Potassium Chloride (Potassium Chloride), 1 TAB PO BID, (Reported) Prednisone (Prednisone), 5 MG PO DAILY24, (Reported) Rivaroxaban (Xarelto), 2.5 MG PO BID, (Reported) Spironolactone (Spironolactone), 25 MG PO DAILY24, (Reported) Sucralfate (Carafate), 10 MILLILITER PO BID, (Reported) Torsemide (Torsemide), 20 MG PO TID, (Reported) Umeclidinium Brm/Vilanterol Tr (Anoro Ellipta 62.5-25 Mcg INH), 1 EACH IH DAILY24, (Reported) Sepsis Evaluation @ Discharge Vital Sign - Last 24 Hours 06/22/19 06/22/19 06/22/19 06/22/19 10:00 10:20 10:21 11:42 Temp 97.5 97.5 Pulse 67 67 73 Resp 20 20 20 18 B/P (MAP) 124/50 (74) 116/62 (80) Pulse Ox 90 90 90 O2 Delivery Room Air Room Air Room Air 06/22/19 06/22/19 06/22/19 06/22/19 12:31 14:04 14:15 14:30 Temp 97.5 Pulse 62 66 65 68 Resp 16 B/P (MAP) 119/77 (91) 106/56 (73) 124/70 (88) 114/58 (76) Pulse Ox 95 96 O2 Delivery Room Air O2 Flow Rate 2.00 06/22/19 06/22/19 06/22/19 06/22/19 14:33 16:34 16:45 17:00 Pulse 64 64 61 B/P (MAP) 114/65 (81) 111/56 (74) 111/57 (75) O2 Delivery Nasal Cannula O2 Flow Rate 2.00 06/22/19 06/22/19 06/22/19 06/22/19 17:15 17:30 17:45 18:01 Temp 98.2 Pulse 61 60 68 66 B/P (MAP) 97/66 (76) 104/73 (83) 109/46 (67) 131/58 (82) Pulse Ox 90 97 99 06/22/19 06/22/19 06/22/19 06/22/19 18:25 18:31 18:45 19:00 Temp 97.4 Pulse 71 69 66 B/P (MAP) 88/57 (67) 113/59 (77) 110/57 (74) 06/22/19 06/22/19 06/22/19 06/22/19 19:02 19:15 19:30 19:45 Pulse 71 69 70 61 Resp 18 B/P (MAP) 131/81 (98) 104/70 (81) 112/45 (67) 110/55 (73) 06/22/19 06/22/19 06/22/19 06/22/19 20:00 20:15 20:41 20:45 Pulse 67 68 66 84 Resp 18 B/P (MAP) 101/58 (72) 124/52 (76) 99/56 (70) 105/56 (72) Pulse Ox 93 98 100 06/22/19 06/22/19 06/22/19 06/22/19 20:52 21:00 21:13 21:15 Pulse 68 65 62 Resp 20 B/P (MAP) 105/56 119/50 (73) 89/62 (71) Pulse Ox 99 99 O2 Delivery Nasal Cannula O2 Flow Rate 2.00 06/22/19 06/22/19 06/22/196/19 21:30 21:45 22:01 22:15 Pulse 75 67 63 61 Resp 18 B/P (MAP) 104/66 (79) 105/51 (69) 117/51 (73) 87/50 (62) Pulse Ox 99 99 91 06/22/19 06/22/19 06/22/19 06/22/19 22:30 22:33 22:34 22:45 Pulse 63 65 67 70 B/P (MAP) 83/47 (59) 87/37 (54) 92/46 (61) 104/54 (71) Pulse Ox 98 100 99 06/22/19 06/22/19 06/22/19 06/22/19 23:01 23:15 23:30 23:46 Temp 98.0 Pulse 66 65 62 74 Resp 18 B/P (MAP) 133/66 (88) 102/36 (58) 101/58 (72) 105/59 (74) Pulse Ox 100 92 93 06/23/19 06/23/19 06/23/19 06/23/19 00:02 00:05 00:15 00:30 Pulse 71 69 66 Resp 18 B/P (MAP) 101/66 (78) 131/46 (74) 103/72 (82) Pulse Ox 90 O2 Delivery Nasal Cannula O2 Flow Rate 2.00 06/23/19 06/23/19 06/23/19 06/23/19 00:45 01:00 01:16 01:30 Pulse 66 66 67 67 Resp 16 B/P (MAP) 111/47 (68) 107/60 (76) 105/53 (70) 93/52 (66) Pulse Ox 97 99 89 06/23/19 06/23/19 06/23/19 06/23/19 01:48 02:00 02:15 02:30 Pulse 70 109 63 60 Resp 18 B/P (MAP) 94/51 (65) 94/50 (65) 108/62 (77) 103/48 (66) Pulse Ox 97 97 06/23/19 06/23/19 06/23/19 06/23/19 02:45 03:00 03:15 03:31 Pulse 64 72 67 67 Resp 16 B/P (MAP) 108/51 (70) 89/58 (68) 91/61 (71) 97/35 (55) Pulse Ox 98 95 99 93 06/23/19 06/23/19 06/23/19 06/23/19 03:46 04:00 04:08 04:15 Temp 97.5 Pulse 66 66 62 Resp 18 B/P (MAP) 93/41 (58) 105/58 (74) 100/50 (67) Pulse Ox 97 93 O2 Delivery Nasal Cannula O2 Flow Rate 2.00 06/23/19 06/23/19 06/23/19 06/23/19 04:31 04:56 05:01 05:15 Pulse 63 69 60 63 Resp 18 B/P (MAP) 93/38 (56) 116/75 (89) 99/51 (67) 110/49 (69) Pulse Ox 91 96 06/23/19 06/23/19 06/23/19 06/23/19 05:30 05:46 06:00 06:15 Pulse 58 70 64 63 B/P (MAP) 92/46 (61) 105/52 (69) 103/49 (67) 106/57 (73) Pulse Ox 78 100 06/23/19 06/23/19 06/23/19 06:30 06:45 07:00 Pulse 62 67 67 Resp 18 B/P (MAP) 114/56 (75) 109/57 (74) 99/50 (66) Pulse Ox 91 86 Intake and Output 06/22/19 06/22/19 06/23/19 15:00 23:00 07:00 Intake Total 1983 ml Output Total 250 ml 580 ml Balance -250 ml 1403 ml Laboratory Tests Test 06/22/19 10:15 06/22/19 11:16 06/22/19 11:39 06/22/19 16:25 White Blood Count 15.2 10^3/uL Red Blood Count 3.83 10^6/uL Hemoglobin 10.6 g/dL Hematocrit 33.1 % Mean Corpuscular Volume 86.4 fL Mean Corpuscular Hemoglobin 27.7 pg Mean Corpuscular Hemoglobin Concent 32.0 g/dL Red Cell Distribution Width 17.5 % Platelet Count 261 10^3/uL Mean Platelet Volume 9.5 fL Neutrophils (%) (Auto) 81.5 % Lymphocytes (%) (Auto) 8.6 % Monocytes (%) (Auto) 7.7 % Neutrophils # (Auto) 12.4 10^3/uL Lymphocytes # (Auto) 1.3 10^3/uL Monocytes # (Auto) 1.2 10^3/uL Absolute Immature Granulocyte (auto 0.20 10^3 u/L Immature Granulocytes % 1.30 % Eosinophils % 0.6 % Basophils % 0.3 % Basophils # 0.0 10^3/uL Eosinophil Count 0.1 10^3/uL Prothrombin Time 13.6 SEC Prothrombin Time INR (Non-Therap) 1.3 Activated Partial Thromboplast Time 33.2 SEC Sodium Level 131 mmol/L Potassium Level 5.2 mmol/L Chloride Level 98.0 mmol/L Carbon Dioxide Level 24.7 mmol/L Anion Gap 13.5 Blood Urea Nitrogen 62 mg/dL Creatinine 2.01 mg/dL Estimated GFR () 38.7 BUN/Creatinine Ratio 30.0 Glucose Level 158 mg/dL Calcium Level 8.9 mg/dL Total Bilirubin 2.3 mg/dL Aspartate Amino Transf (AST/SGOT) 36 U/L Alanine Aminotransferase (ALT/SGPT) 26 U/L Alkaline Phosphatase 163 U/L Ammonia 18 umol/L Total Creatine Kinase 443 U/L Creatine Kinase MB 3.0 ng/mL Troponin I < 0.02 ng/mL < 0.02 ng/mL Pro-B-Type Natriuretic Peptide 2897 pg/mL Total Protein 7.1 g/dL Albumin 3.5 g/dL Globulin 3.6 Blood Gas Sample Site RB Blood Gas pH 7.440 Blood Gas PCO2 37.2 mmHg Blood Gas PO2 56.0 mmHg Blood Gas HCO3 25.2 mmol/L Blood Gas Base Excess 1.3 mmol/L Roland Test N/A Arterial Blood Oxygen Saturation 88.3 % Deoxyhemoglobin 11.6 % Carboxyhemoglobin 0.7 % Methemoglobin 0.1 % Total Hemoglobin 11.2 % Total Oxygen Concentration 13.8 % Blood Gas Temperature 37 Oxygen Delivery Method (LAB) NASAL CANNULA FiO2 28 % Bicarbonate 26.4 mmol/L Urine Collection Type CATH Urine Color YELLOW Urine Appearance CLOUDY Urine Bilirubin NEGATIVE MG/DL Urine Ketones NEGATIVE Urine Specific [place] 1.010 Urine pH 6 Urine Protein 15 mg/dL Urine Urobilinogen NORMAL Urine Nitrate POSITIVE Urine Leukocyte Esterase 500/uL 2+ Urine Blood 150 3+ Urine RBC TNTC RBC/HPF Urine WBC TNTC WBC/HPF Urine Squamous Epithelial Cells RARE #/HPF Urine Bacteria MANY Urine Glucose NORMAL Test 11/6/19 20:42 06/22/19 22:04 06/23/19 06:08 06/23/19 06:29 Bedside Glucose 124 Troponin I < 0.02 ng/mL White Blood Count 14.6 10^3/uL Red Blood Count 3.26 10^6/uL Hemoglobin 9.0 g/dL Hematocrit 28.3 % Mean Corpuscular Volume 86.8 fL Mean Corpuscular Hemoglobin 27.6 pg Mean Corpuscular Hemoglobin Concent 31.8 g/dL Red Cell Distribution Width 17.3 % Platelet Count 252 10^3/uL Mean Platelet Volume 9.0 fL Neutrophils (%) (Auto) 80.8 % Lymphocytes (%) (Auto) 6.4 % Monocytes (%) (Auto) 10.2 % Neutrophils # (Auto) 11.8 10^3/uL Lymphocytes # (Auto) 0.9 10^3/uL Monocytes # (Auto) 1.5 10^3/uL Absolute Immature Granulocyte (auto 0.19 10^3 u/L Immature Granulocytes % 1.30 % Eosinophils % 1.2 % Basophils % 0.1 % Basophils # 0.0 10^3/uL Eosinophil Count 0.2 10^3/uL Prothrombin Time 12.7 SEC Prothrombin Time INR (Non-Therap) 1.2 Sodium Level 134 mmol/L Potassium Level 4.7 mmol/L Chloride Level 100.0 mmol/L Carbon Dioxide Level 25.5 mmol/L Anion Gap 13.2 Blood Urea Nitrogen 61 mg/dL Creatinine 2.11 mg/dL Estimated GFR () 36.6 BUN/Creatinine Ratio 28.0 Glucose Level 120 mg/dL Calcium Level 8.2 mg/dL Magnesium Level 2.9 mg/dL Total Bilirubin 1.8 mg/dL Aspartate Amino Transf (AST/SGOT) 32 U/L Alanine Aminotransferase (ALT/SGPT) 26 U/L Alkaline Phosphatase 146 U/L Total Protein 6.3 g/dL Albumin 3.2 g/dL Globulin 3.1 Differential Total Cells Counted 100 #CELLS Segmented Neutrophils 80 % Lymphocytes 8 % Monocytes 11 % Absolute Eosinophils (Manual) 1 % Nucleated Red Blood Cells 1 % Platelet Estimate ADEQUATE Platelet Morphology NORMAL Blood Morphology Comment NORMAL MORPHOLOGY Current Medications Medications (Trade) Dose Ordered Sig/Debbie PRN Reason Start Time Stop Time Status Last Admin Atorvastatin Calcium (Lipitor) 5 mg HS 06/22/19 21:00 07/22/19 20:59 06/22/19 20:51 Clopidogrel Bisulfate (Plavix) 75 mg DAILY 06/22/19 16:00 07/22/19 15:59 Dextrose (Dextrose 50%-Water Syringe) 25 ml STAT PRN HYPOGLYCEMIA 06/22/19 15:30 07/22/19 15:29 Insulin Human Regular (Humulin R) Give 30 minutes before meal ACHS 06/22/19 17:30 07/22/19 17:29 Levothyroxine Sodium (Synthroid) 75 mcg ACB 06/23/19 06:30 07/23/19 06:29 06/23/19 06:10 Meropenem 1000 mg/ Sodium Chloride 100 ml @ 200 mls/hr BID 06/22/19 21:00 07/22/19 13:59 06/22/19 20:51 Metoprolol Tartrate (Lopresser) 25 mg BID 06/22/19 21:00 07/22/19 20:59 06/22/19 20:52 Pantoprazole Sodium (Protonix) 40 mg BID 06/22/19 21:00 07/23/19 08:59 06/22/19 20:51 Sodium Chloride 1,000 ml @ 30 mls/hr Q24H 06/22/19 15:30 07/22/19 15:29 06/22/19 18:00 Sodium Chloride 2,098 ml @ 1,049 mls/hr OT 06/22/19 13:00 07/22/19 12:59 Course Sepsis Screening Results: Posi: POSITIVE Sepsis Qualifier/Stage: SEPSIS RISK Duration or Total Time Spent w: 15 Vitals & review Data Vital Sign - Last 24 Hours 06/22/19 06/22/19 06/22/19 06/22/19 10:00 10:20 10:21 11:42 Temp 97.5 97.5 Pulse 67 67 73 Resp 20 20 20 18 B/P (MAP) 124/50 (74) 116/62 (80) Pulse Ox 90 90 90 O2 Delivery Room Air Room Air Room Air 06/22/19 06/22/19 06/22/19 06/22/19 12:31 14:04 14:15 14:30 Temp 97.5 Pulse 62 66 65 68 Resp 16 B/P (MAP) 119/77 (91) 106/56 (73) 124/70 (88) 114/58 (76) Pulse Ox 95 96 O2 Delivery Room Air O2 Flow Rate 2.00 06/22/19 06/22/19 06/22/19 06/22/19 14:33 16:34 16:45 17:00 Pulse 64 64 61 B/P (MAP) 114/65 (81) 111/56 (74) 111/57 (75) O2 Delivery Nasal Cannula O2 Flow Rate 2.00 06/22/19 06/22/19 06/22/19 06/22/19 17:15 17:30 17:45 18:01 Temp 98.2 Pulse 61 60 68 66 B/P (MAP) 97/66 (76) 104/73 (83) 109/46 (67) 131/58 (82) Pulse Ox 90 97 99 06/22/19 06/22/19 06/22/19 06/22/19 18:25 18:31 18:45 19:00 Temp 97.4 Pulse 71 69 66 B/P (MAP) 88/57 (67) 113/59 (77) 110/57 (74) 06/22/19 06/22/19 06/22/19 06/22/19 19:02 19:15 19:30 19:45 Pulse 71 69 70 61 Resp 18 B/P (MAP) 131/81 (98) 104/70 (81) 112/45 (67) 110/55 (73) 06/22/19 06/22/19 06/22/19 06/22/19 20:00 20:15 20:41 20:45 Pulse 67 68 66 84 Resp 18 B/P (MAP) 101/58 (72) 124/52 (76) 99/56 (70) 105/56 (72) Pulse Ox 93 98 100 06/22/19 06/22/19 06/22/19 06/22/19 20:52 21:00 21:13 21:15 Pulse 68 65 62 Resp 20 B/P (MAP) 105/56 119/50 (73) 89/62 (71) Pulse Ox 99 99 O2 Delivery Nasal Cannula O2 Flow Rate 2.00 06/22/19 06/22/19 06/22/19 06/22/19 21:30 21:45 22:01 22:15 Pulse 75 67 63 61 Resp 18 B/P (MAP) 104/66 (79) 105/51 (69) 117/51 (73) 87/50 (62) Pulse Ox 99 99 91 06/22/19 06/22/19 06/22/19 06/22/19 22:30 22:33 22:34 22:45 Pulse 63 65 67 70 B/P (MAP) 83/47 (59) 87/37 (54) 92/46 (61) 104/54 (71) Pulse Ox 98 100 99 06/22/19 06/22/19 06/22/19 06/22/19 23:01 23:15 23:30 23:46 Temp 98.0 Pulse 66 65 62 74 Resp 18 B/P (MAP) 133/66 (88) 102/36 (58) 101/58 (72) 105/59 (74) Pulse Ox 100 92 93 06/23/19 06/23/19 06/23/19 06/23/19 00:02 00:05 00:15 00:30 Pulse 71 69 66 Resp 18 B/P (MAP) 101/66 (78) 131/46 (74) 103/72 (82) Pulse Ox 90 O2 Delivery Nasal Cannula O2 Flow Rate 2.00 06/23/19 06/23/19 06/23/19 06/23/19 00:45 01:00 01:16 01:30 Pulse 66 66 67 67 Resp 16 B/P (MAP) 111/47 (68) 107/60 (76) 105/53 (70) 93/52 (66) Pulse Ox 97 99 89 06/23/19 06/23/19 06/23/19 06/23/19 01:48 02:00 02:15 02:30 Pulse 70 109 63 60 Resp 18 B/P (MAP) 94/51 (65) 94/50 (65) 108/62 (77) 103/48 (66) Pulse Ox 97 97 06/23/19 06/23/19 06/23/19 06/23/19 02:45 03:00 03:15 03:31 Pulse 64 72 67 67 Resp 16 B/P (MAP) 108/51 (70) 89/58 (68) 91/61 (71) 97/35 (55) Pulse Ox 98 95 99 93 06/23/19 06/23/19 06/23/19 06/23/19 03:46 04:00 04:08 04:15 Temp 97.5 Pulse 66 66 62 Resp 18 B/P (MAP) 93/41 (58) 105/58 (74) 100/50 (67) Pulse Ox 97 93 O2 Delivery Nasal Cannula O2 Flow Rate 2.00 06/23/19 06/23/19 06/23/19 06/23/19 04:31 04:56 05:01 05:15 Pulse 63 69 60 63 Resp 18 B/P (MAP) 93/38 (56) 116/75 (89) 99/51 (67) 110/49 (69) Pulse Ox 91 96 06/23/19 06/23/19 06/23/19 06/23/19 05:30 05:46 06:00 06:15 Pulse 58 70 64 63 B/P (MAP) 92/46 (61) 105/52 (69) 103/49 (67) 106/57 (73) Pulse Ox 78 100 06/23/19 06/23/19 06/23/19 06:30 06:45 07:00 Pulse 62 67 67 Resp 18 B/P (MAP) 114/56 (75) 109/57 (74) 99/50 (66) Pulse Ox 91 86 Intake and Output 06/22/19 06/22/19 06/23/19 15:00 23:00 07:00 Intake Total 1983 ml Output Total 250 ml 580 ml Balance -250 ml 1403 ml Laboratory Tests Test 06/22/19 10:15 06/22/19 11:16 06/22/19 11:39 06/22/19 16:25 White Blood Count 15.2 10^3/uL Red Blood Count 3.83 10^6/uL Hemoglobin 10.6 g/dL Hematocrit 33.1 % Mean Corpuscular Volume 86.4 fL Mean Corpuscular Hemoglobin 27.7 pg Mean Corpuscular Hemoglobin Concent 32.0 g/dL Red Cell Distribution Width 17.5 % Platelet Count 261 10^3/uL Mean Platelet Volume 9.5 fL Neutrophils (%) (Auto) 81.5 % Lymphocytes (%) (Auto) 8.6 % Monocytes (%) (Auto) 7.7 % Neutrophils # (Auto) 12.4 10^3/uL Lymphocytes # (Auto) 1.3 10^3/uL Monocytes # (Auto) 1.2 10^3/uL Absolute Immature Granulocyte (auto 0.20 10^3 u/L Immature Granulocytes % 1.30 % Eosinophils % 0.6 % Basophils % 0.3 % Basophils # 0.0 10^3/uL Eosinophil Count 0.1 10^3/uL Prothrombin Time 13.6 SEC Prothrombin Time INR (Non-Therap) 1.3 Activated Partial Thromboplast Time 33.2 SEC Sodium Level 131 mmol/L Potassium Level 5.2 mmol/L Chloride Level 98.0 mmol/L Carbon Dioxide Level 24.7 mmol/L Anion Gap 13.5 Blood Urea Nitrogen 62 mg/dL Creatinine 2.01 mg/dL Estimated GFR () 38.7 BUN/Creatinine Ratio 30.0 Glucose Level 158 mg/dL Calcium Level 8.9 mg/dL Total Bilirubin 2.3 mg/dL Aspartate Amino Transf (AST/SGOT) 36 U/L Alanine Aminotransferase (ALT/SGPT) 26 U/L Alkaline Phosphatase 163 U/L Ammonia 18 umol/L Total Creatine Kinase 443 U/L Creatine Kinase MB 3.0 ng/mL Troponin I < 0.02 ng/mL < 0.02 ng/mL Pro-B-Type Natriuretic Peptide 2897 pg/mL Total Protein 7.1 g/dL Albumin 3.5 g/dL Globulin 3.6 Blood Gas Sample Site RB Blood Gas pH 7.440 Blood Gas PCO2 37.2 mmHg Blood Gas PO2 56.0 mmHg Blood Gas HCO3 25.2 mmol/L Blood Gas Base Excess 1.3 mmol/L Roland Test N/A Arterial Blood Oxygen Saturation 88.3 % Deoxyhemoglobin 11.6 % Carboxyhemoglobin 0.7 % Methemoglobin 0.1 % Total Hemoglobin 11.2 % Total Oxygen Concentration 13.8 % Blood Gas Temperature 37 Oxygen Delivery Method (LAB) NASAL CANNULA FiO2 28 % Bicarbonate 26.4 mmol/L Urine Collection Type CATH Urine Color YELLOW Urine Appearance CLOUDY Urine Bilirubin NEGATIVE MG/DL Urine Ketones NEGATIVE Urine Specific [place] 1.010 Urine pH 6 Urine Protein 15 mg/dL Urine Urobilinogen NORMAL Urine Nitrate POSITIVE Urine Leukocyte Esterase 500/uL 2+ Urine Blood 150 3+ Urine RBC TNTC RBC/HPF Urine WBC TNTC WBC/HPF Urine Squamous Epithelial Cells RARE #/HPF Urine Bacteria MANY Urine Glucose NORMAL Test 06/22/19 20:42 06/22/19 22:04 06/23/19 06:08 06/23/19 06:29 Bedside Glucose 124 Troponin I < 0.02 ng/mL White Blood Count 14.6 10^3/uL Red Blood Count 3.26 10^6/uL Hemoglobin 9.0 g/dL Hematocrit 28.3 % Mean Corpuscular Volume 86.8 fL Mean Corpuscular Hemoglobin 27.6 pg Mean Corpuscular Hemoglobin Concent 31.8 g/dL Red Cell Distribution Width 17.3 % Platelet Count 252 10^3/uL Mean Platelet Volume 9.0 fL Neutrophils (%) (Auto) 80.8 % Lymphocytes (%) (Auto) 6.4 % Monocytes (%) (Auto) 10.2 % Neutrophils # (Auto) 11.8 10^3/uL Lymphocytes # (Auto) 0.9 10^3/uL Monocytes # (Auto) 1.5 10^3/uL Absolute Immature Granulocyte (auto 0.19 10^3 u/L Immature Granulocytes % 1.30 % Eosinophils % 1.2 % Basophils % 0.1 % Basophils # 0.0 10^3/uL Eosinophil Count 0.2 10^3/uL Prothrombin Time 12.7 SEC Prothrombin Time INR (Non-Therap) 1.2 Sodium Level 134 mmol/L Potassium Level 4.7 mmol/L Chloride Level 100.0 mmol/L Carbon Dioxide Level 25.5 mmol/L Anion Gap 13.2 Blood Urea Nitrogen 61 mg/dL Creatinine 2.11 mg/dL Estimated GFR () 36.6 BUN/Creatinine Ratio 28.0 Glucose Level 120 mg/dL Calcium Level 8.2 mg/dL Magnesium Level 2.9 mg/dL Total Bilirubin 1.8 mg/dL Aspartate Amino Transf (AST/SGOT) 32 U/L Alanine Aminotransferase (ALT/SGPT) 26 U/L Alkaline Phosphatase 146 U/L Total Protein 6.3 g/dL Albumin 3.2 g/dL Globulin 3.1 Differential Total Cells Counted 100 #CELLS Segmented Neutrophils 80 % Lymphocytes 8 % Monocytes 11 % Absolute Eosinophils (Manual) 1 % Nucleated Red Blood Cells 1 % Platelet Estimate ADEQUATE Platelet Morphology NORMAL Blood Morphology Comment NORMAL MORPHOLOGY Current Medications Medications (Trade) Dose Ordered Sig/Debbie PRN Reason Start Time Stop Time Status Last Admin Atorvastatin Calcium (Lipitor) 5 mg HS 06/22/19 21:00 07/22/19 20:59 06/22/19 20:51 Clopidogrel Bisulfate (Plavix) 75 mg DAILY 06/22/19 16:00 07/22/19 15:59 Dextrose (Dextrose 50%-Water Syringe) 25 ml STAT PRN HYPOGLYCEMIA 06/22/19 15:30 07/22/19 15:29 Insulin Human Regular (Humulin R) Give 30 minutes before meal ACHS 06/22/19 17:30 07/22/19 17:29 Levothyroxine Sodium (Synthroid) 75 mcg ACB 06/23/19 06:30 07/23/19 06:29 06/23/19 06:10 Meropenem 1000 mg/ Sodium Chloride 100 ml @ 200 mls/hr BID 06/22/19 21:00 07/22/19 13:59 06/22/19 20:51 Metoprolol Tartrate (Lopresser) 25 mg BID 06/22/19 21:00 07/22/19 20:59 06/22/19 20:52 Pantoprazole Sodium (Protonix) 40 mg BID 06/22/19 21:00 07/23/19 08:59 06/22/19 20:51 Sodium Chloride 1,000 ml @ 30 mls/hr Q24H 06/22/19 15:30 07/22/19 15:29 06/22/19 18:00 Sodium Chloride 2,098 ml @ 1,049 mls/hr OT 06/22/19 13:00 07/22/19 12:59 Sepsis Infection Criteria Pres: Documented Infection LEVEL 1 SEPSIS INFECTION CRITE: ABX Therapy, Urinary Tract Infection LEVEL 2-SIRS (LIST ALL THAT AP: [id number] Cardiovascular Evidence: Not Assessed or None Hematologic Evidence: None/Not assessed Hepatic Evidence: None/Not assessed Metabolic Evidence: None/Not assessed Neurological Evidence: None/Not assessed Respiratory Evidence: Need for O2 to keep>90% Renal Evidence: Creatinine Lvl>2.0 O2 Sat by Pulse Oximetry: 94 Oxygen Flow Rate: 2.00 Plan Discharge Date: Jun 26, 2019 Dicharge DX: Sepsis, Metabolic Acidosis with Anion Gap, UTI, Cirrhosis, Hepatorenal Discharge Disposition: Stable Plan ok to d/c to [facility] for higher acuity of care medications: per med rec list Diet: Cardiac Activity: bedrest Further recs per accepting facility care team. REYNA RABAGO MD Jun 26, 2019 14:58
--- NOTE | 2019-06-26 15:15 | NUR ---
EMS AT BEDSIDE. REPORT GIVEN TO EMT. PATIENT TRANSFERRED X3 PERSON ASSIST INTO EMS' STRETCHER. PORTABLE O2 AT 2L/MIN VIA NASAL CANULA. LR INFUSING TO RIGHT MIDLINE. PATIENT BELONGINGS TRANSFERRED WITH PATIENT. DAUGHTER NOTIFIED OF TRANSFER.
--- NOTE | 2019-06-26 15:23 | NUR ---
[facility] REPORT CALLED IN TO DARIN VARNER.
== END 2019-06-26 15:20 | DRG 871 ==
LOC: EDBD 09:57 → ER 09:57 → ICU 13:04
PROVIDERS: ADMIT Family Medicine; ATTEND Family Medicine
PROC: 05HC33Z Insertion of Infusion Device into Left Basilic Vein, Percutaneous Approach (ICD-10-PCS; principal; 2019-06-23)
DX: A41.9 Sepsis, unspecified organism (principal); G93.41 Metabolic encephalopathy; N17.0 Acute kidney failure with tubular necrosis; K76.7 Hepatorenal syndrome; N39.0 Urinary tract infection, site not specified; I50.9 Heart failure, unspecified; I48.91 Unspecified atrial fibrillation; E11.51 Type 2 diabetes mellitus with diabetic peripheral angiopathy without gangrene; I11.0 Hypertensive heart disease with heart failure; D64.9 Anemia, unspecified; E78.5 Hyperlipidemia, unspecified; E86.0 Dehydration; E87.5 Hyperkalemia; K72.90 Hepatic failure, unspecified without coma; D69.6 Thrombocytopenia, unspecified; E80.6 Other disorders of bilirubin metabolism; E79.0 Hyperuricemia without signs of inflammatory arthritis and tophaceous disease; I25.10 Atherosclerotic heart disease of native coronary artery without angina pectoris; K70.31 Alcoholic cirrhosis of liver with ascites; T50.2X5A Adverse effect of carbonic-anhydrase inhibitors, benzothiadiazides and other diuretics, initial encounter; Z53.20 Procedure and treatment not carried out because of patient's decision for unspecified reasons; Z79.02 Long term (current) use of antithrombotics/antiplatelets; Z91.013 Allergy to seafood; Z88.8 Allergy status to other drugs, medicaments and biological substances; Z91.018 Allergy to other foods; Z88.1 Allergy status to other antibiotic agents; Z79.899 Other long term (current) drug therapy; Y92.89 Other specified places as the place of occurrence of the external cause; S80.812A Abrasion, left lower leg, initial encounter; W18.39XA Other fall on same level, initial encounter; Y93.89 Activity, other specified; Y99.8 Other external cause status
CPT/HCPCS: 36415; 36569; 36600; 70450; 71045; 72125; 74176; 80053; 81000; 82140; 82550; 82553; 82803; 82948; 83605; 83735; 83880; 84484; 85025; 85610; 85730; 86900; 87040; 87077; 87086; 87186; 90714; 90715; 93005; 94640; 97163; 99285; G0378; J1815; J3490; J7030; J7040; J7050; J7070; J7120; 73060-LT; 73090-LT; 97116-GP; A6209